=== PATIENT | female | born 1930 | race Caucasian/White ===

== ENCOUNTER 2016-03-21 17:39 | Inpatient (IN) | payer OTHER ==
[2016-03-21 19:04] VITALS: BMI 20.5
--- NOTE | 2016-03-21 19:11 | PDOC ---
History of Present Illness - General History Source: Patient Exam Limitations: Dementia - History of Present Illness Initial Comments: 03/21/16 22:18 The patient is an 86-year-old female with a significant past medical history of CVA, COPD, CHF, Dementia (Alzheimers), diabetes, GERD, renal failure, hypertension and hypercholesterolemia who presents to the emergency department with hypernatremia and abnormal blood work sent in by [facility]. The patients history is limited due to patients baseline. Allergies: NKDA Social History: Former smoker (quit >9 years ago). No ETOH or recreational drug use. PCP: Dr. Carrie Mccarthy <Emy Kilpatrick - Last Filed: 03/21/16 22:17> <Ivette Meadows - Last Filed: 03/22/16 01:03> - General Chief Complaint: Revisit, Lab Variance Stated Complaint: HYPERNATREMIA Past History <Emy Kilpatrick - Last Filed: 03/21/16 22:17> - Past Medical History CVA: Yes (TIA) COPD: Yes CHF: Yes Dementia: Yes (alzheimers) Diabetes: Yes GI Disorders: Yes (gerd) Disorders: Yes (renal failure) HTN: Yes Hypercholesterolemia: Yes - Surgical History Orthopedic Surgery: Yes - Immunization History Immunization Up to Date: Yes - Psycho/Social/Smoking Cessation Hx Anxiety: No Suicidal Ideation: No Smoking History: Former smoker Have you smoked in the past 12 months: No If you are a former smoker, when did you quit?: >9 YEARS Information on smoking cessation initiated: No Hx Alcohol Use: No Drug/Substance Use Hx: No Substance Use Type: None Hx Substance Use Treatment: No <Ivette Meadows - Last Filed: 03/22/16 01:03> - Past Medical History Allergies/Adverse Reactions: Allergies Allergy/AdvReac Type Severity Reaction Status Date / Time No Known Allergies Allergy Verified 03/21/16 18:24 Home Medications: Ambulatory Orders Albuterol Sulfate Inhaler - [Ventolin HFA Inhaler -] 1 inh PO Q6H 11/16/15 Clopidogrel Bisulfate [Plavix -] 75 mg PO DAILY 11/16/15 Memantine HCl [Namenda -] 10 mg PO BID 11/16/15 Multivitamins [Multivit ([facility] Formul[facility])] 1 tab PO DAILY 11/16/15 Rosuvastatin Calcium [Crestor] 20 mg PO HS 11/16/15 Docusate Sodium [Colace -] 200 mg PO HS 12/18/15 Oxycodone HCl [Roxicodone -] 5 mg PO ASDIR 12/18/15 Ranitidine [Zantac -] 150 mg PO HS 12/18/15 Collagenase Clostridium Hist. [Santyl -] 1 applic TP DAILY tube 12/25/15 Pantoprazole Sodium [Protonix -] 40 mg PO DAILY tablet.ec 12/25/15 Aa/[place] Iraj,[place]/Arg/C/Zn/Cu [Lps Critical Care Liquid] 30 ml PO TID 03/05/16 Ascorbate Calcium [Vitamin C] 500 mg PO DAILY 03/05/16 Ascorbate Calcium/Bioflavonoid [Ashley-C 1,000 mg Tablet] 1 each PO DAILY Donepezil HCl [Aricept -] 10 mg PO DAILY 03/05/16 Acetaminophen [Tylenol .Regular Strength -] 650 mg PO Q4H PRN #0 tablet Review of Systems - Review of Systems Able to Perform ROS?: No Comments:: 03/21/16 22:09 Unable to perform ROS due to the patient's altered mental status. <Emy Kilpatrick - Last Filed: 03/21/16 22:17> *Physical Exam - Vital Signs Last Vital Signs Temp Pulse Resp BP Pulse Ox 98.4 F 77 16 135/59 98 03/21/16 18:00 03/21/16 18:00 03/21/16 18:00 03/21/16 18:00 03/21/16 18:00 <Emy Kilpatrick - Last Filed: 03/21/16 22:17> - Vital Signs Last Vital Signs Temp Pulse Resp BP Pulse Ox 98.4 F 77 16 135/59 98 03/21/16 18:00 03/21/16 18:00 03/21/16 18:00 03/21/16 18:00 03/21/16 18:00 <Ivette Meadows - Last Filed: 03/22/16 01:03> ED Treatment Course - LABORATORY CBC & Chemistry Diagram: 03/21/16 20:40 03/21/16 21:00 - ADDITIONAL ORDERS Additional order review: Laboratory Results 03/21/16 03/21/16 21:00 21:00 Sodium 165 H* D Potassium 3.1 L D Chloride 127 H Carbon Dioxide 27 Anion Gap 11 BUN 46 H D Creatinine 1.5 H D Creat Clearance w eGFR 32.92 Random Glucose 88 Calcium 8.8 Total Bilirubin 0.4 D AST 22 D ALT 12 D Alkaline Phosphatase 56 B-Natriuretic Peptide 09228.95 H Total Protein 5.0 L Albumin 1.8 L 03/21/16 20:40 RBC 3.07 L MCV 93.2 MCHC 31.8 L RDW 15.5 MPV 9.1 Neutrophils % 71.0 Lymphocytes % 15.5 D Monocytes % 11.9 H D Eosinophils % 0.7 Basophils % 0.9 D - Medications Given in the ED: ED Medications Discontinued Medications Generic Name Dose Route Start Last Admin Trade Name Freq PRN Reason Stop Dose Admin Sodium Chloride 1,000 ml 03/21/16 19:33 03/21/16 20:45 Normal Saline - IV 03/21/16 19:34 1,000 ml ONCE ONE Administration <Emy Kilpatrick - Last Filed: 03/21/16 22:17> - LABORATORY CBC & Chemistry Diagram: 03/21/16 20:40 03/21/16 21:00 <Ivette Meadows - Last Filed: 03/22/16 01:03> Medical Decision Making - Medical Decision Making 03/22/16 01:01 Pt is DNR from the [facility]; she has known CHF, as well as known dehydration and hypernatremia. Today she was sent or hyper Na+. In the ER her Na+ is 160s. She was hydrated gently in the ER and she will be admitted to Dr. Lott. Pt's abdominal exam is normal. She has no fever and no flank pain or abdominal pain and her lungs are clear. Pt is demented and she cannot give a history <Ivette Meadows - Last Filed: 03/22/16 01:03> *DC/Admit/Observation/Transfer - Attestations Scribe Attestion: 03/21/16 22:09 Documentation prepared by Emy Kilpatrick, acting as medical record consultant for Ivette Meadows MD. <Emy Kilpatrick - Last Filed: 03/21/16 22:17> - Discharge Dispostion Admit: Yes <Ivette Meadows - Last Filed: 03/22/16 01:03> Diagnosis at time of Disposition: Hypernatremia, Hypokalemia, Dehydration, Dementia - Discharge Dispostion Condition at time of disposition: Poor - Referrals Addendum entered and electronically signed by Emy Kilpatrick SCRIBE 03/22/16 04:33: Physical Exam Vital Signs: Vital Signs Temperature 98.4 F 03/22/16 03:01 Pulse Rate 77 03/22/16 03:01 Respiratory Rate 16 03/22/16 03:01 Blood Pressure 135/59 03/22/16 03:01 O2 Sat by Pulse Oximetry (%) 98 03/22/16 03:01 GENERAL: The patient is in no acute distress. HEAD: Normal with no signs of trauma. EYES: Pupils equal, round and reactive to light, extraocular movements intact, sclera anicteric, conjunctiva clear with no pallor. ENT: Ears normal, nares patent, oropharynx clear without exudates. Moist mucous membranes. NECK: Normal range of motion, supple without lymphadenopathy, JVD, or masses. LUNGS: Breath sounds equal, clear to auscultation bilaterally. No wheeze/ crackles. HEART: Regular rate and rhythm, normal S1 and S2 without murmur or rub. ABDOMEN: Soft/nontender/nondistended. BS wnl. No guarding or rebound. No palpable masses. No hepatosplenomegaly. EXTREMITIES: Normal range of motion, no edema. No clubbing or cyanosis. No cords, erythema, or tenderness. NEUROLOGICAL: Cranial nerves II through XII grossly intact. Normal speech, normal gait. PSYCH: +Dementia. Normal mood, normal affect. SKIN: Warm, Dry, normal turgor, no rashes or lesions noted. Constitutional: Yes: Well Nourished, No Distress, Calm Eyes: Yes: WNL, Conjunctiva Clear, EOM Intact HENT: Yes: WNL, Atraumatic, Normocephalic Neck: Yes: WNL, Supple, Trachea Midline Cardiovascular: Yes: WNL, Regular Rate and Rhythm Respiratory: Yes: WNL, Regular, CTA Bilaterally Gastrointestinal: Yes: WNL, Normal Bowel Sounds ...Rectal Exam: Yes: WNL Renal/: Yes: WNL Breast(s): Yes: WNL Musculoskeletal: Yes: WNL Extremities: Yes: WNL Integumentary: Yes: WNL Neurological: Yes: WNL, Alert, Oriented ...Motor Strength: WNL Psychiatric: Yes: WNL Labs: CBC, BMP 03/21/16 20:40 03/21/16 21:00
[2016-03-21] MEDS ORDERED: SODIUM CHLORIDE 0.9% 500 ML INFUS.BAG IV ONE (19:33)
[2016-03-21 20:55] LABS: BASOPHIL 0.9 % (0-2.0); EOSINOPHIL 0.7 % (0-4.5); MCH 29.7 pg (25.7-33.7); MCHC 31.8 g/dl (32.0-36.0); MEAN CELL VOLUME 93.2 fl (80-96); MEAN PLT VOLUME 9.1 fl (7.5-11.1); PLATELET COUNT 261 K/MM3 (134-434); RDW 15.5 % (11.6-15.6); WHITE BLOOD COUNT 5.7 K/mm3 (4.0-10.0)
[2016-03-21 21:51] LABS: ALBUMIN 1.8 g/dl (3.4-5.0); BILIRUBIN,TOTAL 0.4 mg/dL (0.2-1.0); CALCIUM 8.8 mg/dL (8.5-10.1); CREATININE 1.5 mg/dL (0.55-1.02)
[2016-03-21] MEDS ORDERED: MAGNESIUM SULF 50% (8.12 MEQ/2 ML-1 GM VIAL) IVPB ONE (21:57)
[2016-03-21] MEDS ORDERED: ACETAMINOPHEN 325 MG TABLET (FP) PO PRN (22:32)
[2016-03-21] MEDS ORDERED: MAGNESIUM SULF 50% (8.12 MEQ/2 ML-1 GM VIAL) ONE (22:56)
[2016-03-21] MEDS ORDERED: KCL 10 MEQ IVPB 100 ML IVPB ONE (22:57)
[2016-03-21] MEDS: KCL 10 MEQ IVPB 100 ML IVPB SCH (23:05)
[2016-03-22] MEDS ORDERED: KCL 10 MEQ IVPB 100 ML IVPB ONE (00:10)
[2016-03-22] MEDS: KCL 10 MEQ IVPB 100 ML IVPB SCH (04:05)
--- NOTE | 2016-03-22 10:13 | HP ---
Admitting History and Physical - Primary Care Physician PCP: Carrie Mccarthy - Admission Chief Complaint: Hypernatremia, Hypokalemia, Dehydration, Dementia. 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 Cardiovascular: Yes: CHF (Chronic systolic CHF), HTN, Hyperlipdemia, Other ( LBBB (old)) Pulmonary: Yes: COPD Gastrointestinal: Yes: GERD Renal/: Yes: Renal Inusuff Dermatology: Yes: Other (PU) - Smoking History Smoking history: Former smoker Have you smoked in the past 12 months: No If you are a former smoker, when did you quit?: >9 YEARS - Alcohol/Substance Use Hx Alcohol Use: No Home Medications - Allergies Allergies/Adverse Reactions: Allergies Allergy/AdvReac Type Severity Reaction Status Date / Time No Known Allergies Allergy Verified 03/21/16 18:24 - Home Medications Home Medications: Ambulatory Orders Albuterol Sulfate Inhaler - [Ventolin HFA Inhaler -] 1 inh PO Q6H 11/16/15 Clopidogrel Bisulfate [Plavix -] 75 mg PO DAILY 11/16/15 Memantine HCl [Namenda -] 10 mg PO BID 11/16/15 Multivitamins [Multivit ([facility] Formul[facility])] 1 tab PO DAILY 11/16/15 Rosuvastatin Calcium [Crestor] 20 mg PO HS 11/16/15 Docusate Sodium [Colace -] 200 mg PO HS 12/18/15 Oxycodone HCl [Roxicodone -] 5 mg PO ASDIR 12/18/15 Ranitidine [Zantac -] 150 mg PO HS 12/18/15 Collagenase Clostridium Hist. [Santyl -] 1 applic TP DAILY tube 12/25/15 Pantoprazole Sodium [Protonix -] 40 mg PO DAILY tablet.ec 12/25/15 Aa/[place] Iraj,[place]/Arg/C/Zn/Cu [Lps Critical Care Liquid] 30 ml PO TID 03/05/16 Ascorbate Calcium [Vitamin C] 500 mg PO DAILY 03/05/16 Ascorbate Calcium/Bioflavonoid [Ashley-C 1,000 mg Tablet] 1 each PO DAILY Donepezil HCl [Aricept -] 10 mg PO DAILY 03/05/16 Acetaminophen [Tylenol .Regular Strength -] 650 mg PO Q4H PRN #0 tablet Review of Systems Findings/Remarks: UNABLE TO GIVE HISTORY Physical Examination Vital Signs: Vital Signs Temperature 98.4 F 03/22/16 03:01 Pulse Rate 77 03/22/16 03:01 Respiratory Rate 16 03/22/16 03:01 Blood Pressure 135/59 03/22/16 03:01 O2 Sat by Pulse Oximetry (%) 98 03/22/16 03:01 Findings/Remarks: LETHARGIC SON AT BEDSIDE Constitutional: Yes: Calm Cardiovascular: Yes: Regular Rate and Rhythm, S1, S2 Respiratory: Yes: CTA Bilaterally Gastrointestinal: Yes: Normal Bowel Sounds, Soft Edema: No Imaging - Results Chest X-ray: Report Reviewed Problem List - Problems (1) Dehydration Code(s): E86.0 - DEHYDRATION (2) Dementia Code(s): F03.90 - UNSPECIFIED DEMENTIA WITHOUT BEHAVIORAL DISTURBANCE (3) Hypernatremia Code(s): E87.0 - HYPEROSMOLALITY AND HYPERNATREMIA (4) Hypokalemia Code(s): E87.6 - HYPOKALEMIA (5) Renal failure (ARF), acute on chronic Code(s): N17.9 - ACUTE KIDNEY FAILURE, UNSPECIFIED N18.9 - CHRONIC KIDNEY DISEASE, UNSPECIFIED (6) COPD (chronic obstructive pulmonary disease) Code(s): J44.9 - CHRONIC OBSTRUCTIVE PULMONARY DISEASE, UNSPECIFIED (7) CHF (congestive heart failure) Code(s): I50.9 - HEART FAILURE, UNSPECIFIED (8) HTN (hypertension) Code(s): I10 - ESSENTIAL (PRIMARY) HYPERTENSION Assessment/Plan The patient is an 86-year-old female with a significant past medical history of CVA, COPD, CHF, Dementia (Alzheimers), diabetes, GERD, renal failure, hypertension and hypercholesterolemia who presents to the emergency department with hypernatremia and abnormal blood work sent in by [facility]. The patients history is limited due to patients baseline. Allergies: NKDA Social History: Former smoker (quit >9 years ago). No ETOH or recreational drug use. PCP: Dr. Carrie Mccarthy Hypernatremia, Hypokalemia, Dehydration, Dementia (1) Dehydration Code(s): E86.0 - DEHYDRATION RENAL CONSULTED POSSIBLE AE CHF F/U LABS (2) Dementia Code(s): F03.90 - UNSPECIFIED DEMENTIA WITHOUT BEHAVIORAL DISTURBANCE (3) Hypernatremia Code(s): E87.0 - HYPEROSMOLALITY AND HYPERNATREMIA (4) Hypokalemia Code(s): E87.6 - HYPOKALEMIA SEE #1 (5) Renal failure (ARF), acute on chronic Code(s): N17.9 - ACUTE KIDNEY FAILURE, UNSPECIFIED N18.9 - CHRONIC KIDNEY DISEASE, UNSPECIFIED SEE #1 (6) COPD (chronic obstructive pulmonary disease) Code(s): J44.9 - CHRONIC OBSTRUCTIVE PULMONARY DISEASE, UNSPECIFIED CXr -> INFILTRATE WBC NEG NO FEVER ID & PULM CONSULTED (7) CHF (congestive heart failure) Code(s): I50.9 - HEART FAILURE, UNSPECIFIED BNP INCed CARDIO CONSULTED F/U LABS (8) HTN (hypertension) Code(s): I10 - ESSENTIAL (PRIMARY) HYPERTENSION [employer]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
[2016-03-22] MEDS ORDERED: ALBUTEROL SO4 0.083% IH SOL 2.5 MG/3 ML VIAL.NEB. NEB PRN (10:19)
--- NOTE | 2016-03-22 10:31 | EKG ---
Test Reason : Blood Pressure : / mmHG Vent. Rate : 095 BPM Atrial Rate : 197 BPM P-R Int : 000 ms QRS Dur : 180 ms QT Int : 482 ms P-R-T Axes : 000 -44 -27 degrees QTc Int : 605 ms POOR DATA QUALITY, INTERPRETATION MAY BE ADVERSELY AFFECTED SINUS RHYTHM LEFT BUNDLE BRANCH BLOCK ABNORMAL ECG Confirmed by PAUL PALACIO MD ([id number]) on 03/22/2016 10:31:37 AM Referred By: Confirmed By:PAUL PALACIO MD
--- NOTE | 2016-03-22 11:03 | CONSULT ---
Consult Consult Specialty:: Cardiology Referred by:: Dr. Lott Reason for Consultation:: Elevated BNP - History of Present Illness History of Present Illness: 86 yo female with DM, dementia, COPD, CVA (noted on 11/16/[address]), CKD, GERD, chronic systolic CHF, LBBB (old), and multiple hospitalizations for dehydration. She was admitted again with acute mild renal failure (BUN 46, Cr 1.5)/dehydration/hypernatremia (Na 165)/hypokalemia. Cardiology was consulted for cardiac evaluation for elevated BNP 14,941. CXR reported RUL infiltrate, cardiomegaly, no effusions. ECG on 03/22/16 demonstrated sinus rhythm with LBBB ( old). 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 Cardio/Vascular: Yes: CHF (Chronic systolic CHF), HTN, Hyperlipdemia, Other ( LBBB (old)) Pulmonary: Yes: COPD Gastrointestinal: Yes: GERD Renal/: Yes: Renal Inusuff Dermatology: Yes: Other (PU) - Alcohol/Substance Use Hx Alcohol Use: No - Smoking History Smoking history: Former smoker Have you smoked in the past 12 months: No If you are a former smoker, when did you quit?: >9 YEARS Home Medications - Allergies Allergies/Adverse Reactions: Allergies Allergy/AdvReac Type Severity Reaction Status Date / Time No Known Allergies Allergy Verified 03/21/16 18:24 - Home Medications Home Medications: Ambulatory Orders Albuterol Sulfate Inhaler - [Ventolin HFA Inhaler -] 1 inh PO Q6H 11/16/15 Clopidogrel Bisulfate [Plavix -] 75 mg PO DAILY 11/16/15 Memantine HCl [Namenda -] 10 mg PO BID 11/16/15 Multivitamins [Multivit ([facility] Formul[facility])] 1 tab PO DAILY 11/16/15 Rosuvastatin Calcium [Crestor] 20 mg PO HS 11/16/15 Docusate Sodium [Colace -] 200 mg PO HS 12/18/15 Oxycodone HCl [Roxicodone -] 5 mg PO ASDIR 12/18/15 Ranitidine [Zantac -] 150 mg PO HS 12/18/15 Collagenase Clostridium Hist. [Santyl -] 1 applic TP DAILY tube 12/25/15 Pantoprazole Sodium [Protonix -] 40 mg PO DAILY tablet.ec 12/25/15 Aa/[place] Iraj,[place]hey/Arg/C/Zn/Cu [Lps Critical Care Liquid] 30 ml PO TID 03/05/16 Ascorbate Calcium [Vitamin C] 500 mg PO DAILY 03/05/16 Ascorbate Calcium/Bioflavonoid [Ashley-C 1,000 mg Tablet] 1 each PO DAILY Donepezil HCl [Aricept -] 10 mg PO DAILY 03/05/16 Acetaminophen [Tylenol .Regular Strength -] 650 mg PO Q4H PRN #0 tablet Family Disease History - Family Disease History Family History: Unable to Obtain (due to dementia) Review of Systems Unable to obtain ROS, reason: dementia Vital Signs: Vital Signs Temperature 98.4 F 03/22/16 03:01 Pulse Rate 77 03/22/16 03:01 Respiratory Rate 16 03/22/16 03:01 Blood Pressure 135/59 03/22/16 03:01 O2 Sat by Pulse Oximetry (%) 98 03/22/16 03:01 Eyes: Yes: Conjunctiva Clear, EOM Intact HENT: Yes: Atraumatic, Normocephalic Respiratory: Yes: CTA Bilaterally Gastrointestinal: Yes: Normal Bowel Sounds, Soft. No: Distention, Tenderness Cardiovascular: Yes: Regular Rate and Rhythm JVD: No Carotid Bruit: No PMI: Non-Displaced Heart Sounds: Yes: S1, S2 Murmur: No: Systolic Murmur Edema: No - Other Data 03/22/16 ECG: Sinus rhythm, rate 72 bpm, LBBB (old) Echo: Report Reviewed (12/19/15 Echo: Dilated LV with moderate to severely reduced systolic function, mod MR, mild TR, and normal RVSP.) Imaging - Results Chest X-ray: Report Reviewed (03/22/16: RUL infiltrate, cardiomegaly, no effusions.) Assessment/Plan 86 yo female with DM, dementia, COPD, CVA (noted on 11/16/[address]), CKD, GERD, chronic systolic CHF, and multiple hospitalizations for dehydration. Patient with elevated BNP, but does not appear to be in decompensated CHF. Would not treat patient for heart failure based solely on elevated BNP, as her clinical picture is not suggestive of decompensated CHF. Rather she appears to be clinically dehydrated again based on hypernatremia. Given patient's dementia, advanced age, and overall clinical status, there is no indication or utility for any further cardiac work-up or intervention. Patient is clinically dehydrated. No need for diuretics at this time and would not resume meds for management of her LV systolic dysfunction (beta-courtney, DEMARCUS -inhibitors, or diuretics) given her overall poor prognosis and limited benefit in this patient's case given her repeated admissions for dehydration & renal failure. Further recs as per primary team, pulmonary, and nephrology. Will see prn. Call with questions.
--- NOTE | 2016-03-22 12:14 | PN ---
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
[2016-03-22] MEDS: MULTIVITAMINS (DAILY MVI) TABLET (FP) PO SCH (12:42)
[2016-03-22] MEDS: MEMANTINE HCL 10 MG TABLET (FP) PO SCH ×2 (12:42→23:22)
[2016-03-22] MEDS: DONEPEZIL HCL 10 MG TABLET (FP) PO SCH (12:42)
[2016-03-22] MEDS: ASCORBIC ACID 500 MG TABLET (FP) PO SCH (12:42)
[2016-03-22] MEDS: HEPARIN NA (PORCINE) 5,000 UNITS/ML 1ML VIAL SQ SCH ×2 (12:43→23:23)
[2016-03-22] MEDS: PANTOPRAZOLE 40 MG TABLET (FP) PO SCH (12:43)
[2016-03-22] MEDS: CLOPIDOGREL BISULFATE 75 MG TABLET (FP) PO SCH (12:43)
--- NOTE | 2016-03-22 13:08 | CONSULT ---
Consult Consult Specialty:: PULMONARY Referred by:: Dr. Lott Reason for Consultation:: abnormal CXR - History of Present Illness Chief Complaint: abnormal labs History of Present Illness: 86yo female with h/o DM, COPD, CKD, h/o CVA, LV systolic dysfunction, advanced dementia who was transferred from the shelter for hypernatremia. Pt is nonverbal, unable to provide further history at this time. Prior admissions significant for dehydration, family declining feeding tube although pt with poor PO intake. Pt without fevers or leukocytosis, CXR read as possible bilateral infiltrates although different technique. 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 Cardio/Vascular: Yes: CHF (Chronic systolic CHF), HTN, Hyperlipdemia, Other ( LBBB (old)) Pulmonary: Yes: COPD Gastrointestinal: Yes: GERD Renal/: Yes: Renal Inusuff Dermatology: Yes: Other (PU) - Alcohol/Substance Use Hx Alcohol Use: No - Smoking History Smoking history: Former smoker Have you smoked in the past 12 months: No If you are a former smoker, when did you quit?: >9 YEARS Home Medications - Allergies Allergies/Adverse Reactions: Allergies Allergy/AdvReac Type Severity Reaction Status Date / Time No Known Allergies Allergy Verified 03/21/16 18:24 - Home Medications Home Medications: Ambulatory Orders Albuterol Sulfate Inhaler - [Ventolin HFA Inhaler -] 1 inh PO Q6H 11/16/15 Clopidogrel Bisulfate [Plavix -] 75 mg PO DAILY 11/16/15 Memantine HCl [Namenda -] 10 mg PO BID 11/16/15 Multivitamins [Multivit ([facility] Formul[facility])] 1 tab PO DAILY 11/16/15 Rosuvastatin Calcium [Crestor] 20 mg PO HS 11/16/15 Docusate Sodium [Colace -] 200 mg PO HS 12/18/15 Oxycodone HCl [Roxicodone -] 5 mg PO ASDIR 12/18/15 Ranitidine [Zantac -] 150 mg PO HS 12/18/15 Collagenase Clostridium Hist. [Santyl -] 1 applic TP DAILY tube 12/25/15 Pantoprazole Sodium [Protonix -] 40 mg PO DAILY tablet.ec 12/25/15 Aa/[place] Iraj,[place]hey/Arg/C/Zn/Cu [Lps Critical Care Liquid] 30 ml PO TID 03/05/16 Ascorbate Calcium [Vitamin C] 500 mg PO DAILY 03/05/16 Ascorbate Calcium/Bioflavonoid [Ashley-C 1,000 mg Tablet] 1 each PO DAILY Donepezil HCl [Aricept -] 10 mg PO DAILY 03/05/16 Acetaminophen [Tylenol .Regular Strength -] 650 mg PO Q4H PRN #0 tablet Review of Systems Unable to obtain ROS, reason: pt demented Physical Exam Vital Sings: Vital Signs Temperature 98.4 F 03/22/16 03:01 Pulse Rate 77 03/22/16 03:01 Respiratory Rate 16 03/22/16 03:01 Blood Pressure 135/59 03/22/16 03:01 O2 Sat by Pulse Oximetry (%) 98 03/22/16 03:01 Constitutional: Yes: Calm Eyes: Yes: Conjunctiva Clear, EOM Intact HENT: Yes: Atraumatic, Normocephalic Neck: Yes: Supple, Trachea Midline Cardiovascular: Yes: Regular Rate and Rhythm Respiratory: Yes: Diminished (poor effort) ...Clubbing: No Gastrointestinal: Yes: Normal Bowel Sounds, Soft Edema: No Imaging - Results Chest X-ray: Report Reviewed, Image Reviewed (rotated, LLL infiltrate vs atelectasis) Problem List - Problems (1) Dementia Code(s): F03.90 - UNSPECIFIED DEMENTIA WITHOUT BEHAVIORAL DISTURBANCE (2) Hypernatremia Code(s): E87.0 - HYPEROSMOLALITY AND HYPERNATREMIA (3) COPD (chronic obstructive pulmonary disease) Code(s): J44.9 - CHRONIC OBSTRUCTIVE PULMONARY DISEASE, UNSPECIFIED (4) Failure to thrive Code(s): [id number] - Qualifiers: Failure to thrive age range: in adult Qualified Code(s): R62.7 - Adult failure to thrive (5) 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
[2016-03-22] MEDS: COLLAGENASE CLOSTRIDIUM HIST. 30 GRAMS TUBE TP SCH (14:31)
--- NOTE | 2016-03-22 14:31 | CONSULT ---
Consult Consult Specialty:: Nephrology ( Drs. Carolina/ Lennox) Referred by:: Dr. Lott - History of Present Illness Chief Complaint: 86 y/o female admitted with Hypernatremia. Has H/o DM 2, COPD , PVD, LE ulcers, Dementia. was recently in [facility] with sepsis. 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) - Alcohol/Substance Use Hx Alcohol Use: No - Smoking History Smoking history: Former smoker Have you smoked in the past 12 months: No If you are a former smoker, when did you quit?: >9 YEARS Home Medications - Allergies Allergies/Adverse Reactions: Allergies Allergy/AdvReac Type Severity Reaction Status Date / Time No Known Allergies Allergy Verified 03/21/16 18:24 - Home Medications Home Medications: Ambulatory Orders Albuterol Sulfate Inhaler - [Ventolin HFA Inhaler -] 1 inh PO Q6H 11/16/15 Clopidogrel Bisulfate [Plavix -] 75 mg PO DAILY 11/16/15 Memantine HCl [Namenda -] 10 mg PO BID 11/16/15 Multivitamins [Multivit ([facility] Formul[facility])] 1 tab PO DAILY 11/16/15 Rosuvastatin Calcium [Crestor] 20 mg PO HS 11/16/15 Docusate Sodium [Colace -] 200 mg PO HS 12/18/15 Oxycodone HCl [Roxicodone -] 5 mg PO ASDIR 12/18/15 Ranitidine [Zantac -] 150 mg PO HS 12/18/15 Collagenase Clostridium Hist. [Santyl -] 1 applic TP DAILY tube 12/25/15 Pantoprazole Sodium [Protonix -] 40 mg PO DAILY tablet.ec 12/25/15 Aa/Purmela Iraj,Whey/Arg/C/Zn/Cu [Lps Critical Care Liquid] 30 ml PO TID 03/05/16 Ascorbate Calcium [Vitamin C] 500 mg PO DAILY 03/05/16 Ascorbate Calcium/Bioflavonoid [Ashley-C 1,000 mg Tablet] 1 each PO DAILY Donepezil HCl [Aricept -] 10 mg PO DAILY 03/05/16 Acetaminophen [Tylenol .Regular Strength -] 650 mg PO Q4H PRN #0 tablet Physical Exam Vital Signs: Vital Signs Temperature 98.4 F 03/22/16 03:01 Pulse Rate 77 03/22/16 03:01 Respiratory Rate 16 03/22/16 03:01 Blood Pressure 135/59 03/22/16 03:01 O2 Sat by Pulse Oximetry (%) 98 03/22/16 03:01 Constitutional: Yes: Mild Distress, Thin Cardiovascular: Yes: Regular Rate and Rhythm, S1, S2 Respiratory: Yes: Poor Air Entry, Rhonchi Gastrointestinal: Yes: Normal Bowel Sounds Edema: No Integumentary: Yes: Pressure Ulcer (Laft heel and an ulcer on the dorsum of the left foot.) Neurological: Yes: Unresponsive Problem List - Problems (1) COPD (chronic obstructive pulmonary disease) Code(s): J44.9 - CHRONIC OBSTRUCTIVE PULMONARY DISEASE, UNSPECIFIED (2) Dementia Code(s): F03.90 - UNSPECIFIED DEMENTIA WITHOUT BEHAVIORAL DISTURBANCE (3) HTN (hypertension) Code(s): I10 - ESSENTIAL (PRIMARY) HYPERTENSION (4) Anemia Code(s): D64.9 - ANEMIA, UNSPECIFIED Qualifiers: Iron deficiency anemia type: chronic blood loss (5) Hypernatremia Code(s): E87.0 - HYPEROSMOLALITY AND HYPERNATREMIA (6) Foot ulcer Code(s): L97.509 - NON-PRESSURE CHRONIC ULCER OTH PRT UNSP FOOT W UNSP SEVERITY Assessment/Plan 86 y/o female with Acute hypernatremia, possibly due to free water depletion and Dehydration. Underlying infectious process and poor oral intake might be triggering factors. Plan: IV Hydration Will monitor Renal functions. Thanks again Jennifer Carolina
[2016-03-22 14:33] LABS: BASOPHIL 0.3 % (0-2.0); EOSINOPHIL 0.9 % (0-4.5); MCH 30.3 pg (25.7-33.7); MCHC 31.8 g/dl (32.0-36.0); MEAN CELL VOLUME 95.1 fl (80-96); NEUTROPHILS 75.4 % (42.8-82.8); PLATELET COUNT 220 K/MM3 (134-434); WHITE BLOOD COUNT 6.6 K/mm3 (4.0-10.0)
[2016-03-22] MEDS ORDERED: SODIUM CHLORIDE 0.45%/POT 1,000 ML IV SCH (14:45)
--- NOTE | 2016-03-22 14:46 | CONS ---
DATE OF CONSULTATION: DATE OF DICTATION: 03/22/2016 CONSULTATION REQUESTED BY: Alf Lott MD HISTORY: This is an 86-year-old woman who was recently hospitalized at the end of February with aspiration pneumonia, renal failure, who is now admitted with hypernatremia from the snf. I am asked to see her for possible pneumonia. She is nonverbal, not giving any history, and resting quite comfortably. Her son is at the bedside and reports mom has very poor appetite at the snf. He also reports that she has a heel ulcer on her left foot and a new ulcer on the dorsal surface of her left foot. PAST MEDICAL HISTORY: She has a past medical history of dementia, TIA, atrial fibrillation, CHF, hypertension, hyperlipidemia, COPD, GERD, and renal insufficiency. She has been living at the snf since August because she stopped ambulating at home, and she really eats poorly there. She was recently admitted in February from the until the . She was admitted then with hypernatremia, renal failure, and aspiration pneumonia. ALLERGIES: She has no known drug allergies. MEDICATIONS: Her medications at the snf include Roxicodone, collagenase, vitamin C, Protonix, protein supplement, multivitamin, vitamin C, Ventolin, Crestor, Zantac, Colace, Namenda, Aricept, and Plavix. FAMILY HISTORY: Noncontributory. SOCIAL HISTORY: She has a very involved son who she used to live with before she was hospitalized. REVIEW OF SYSTEMS: As per HPI. Son does not recall any vomiting. She just has very poor appetite. PHYSICAL EXAMINATION: Vital Signs: Her temperature is 98.4. Pulse is 77. Blood pressure 135/59, respiratory rate 16. She weighs 112 pounds. She was 114 the last time she was here. HEENT: She is normocephalic. Her eyes are anicteric. She does not have her dentures, which are lost. She is nonverbal. Lungs: Clear to auscultation. Heart: Regular rate and rhythm. Abdomen: Soft, nontender. Extremities: Notable for a necrotic heel ulcer, and she has an exposed tendon on the dorsal part of the foot as well. LABORATORY: Notable for a white count of 5.7, hemoglobin 9.1, platelets of 261. BUN and creatinine are 46 and 1.5 with a sodium of 165. Chest x-ray has some increased markings which I suspect are unchanged from her prior x-ray in February. SUMMARY: This is an 86-year-old woman who was doing very poorly, diminished oral appetite, who is admitted with dehydration for the second time in a month. We were asked to see her for abnormal chest x-ray. I do not think she has active pneumonia at this time. Would treat her dehydration. As well, Surgery should reevaluate her necrotic ulcers. Overall, she is really failing and doing poorly, and given her advanced age and dementia which she has had for 8 years, her overall prognosis is quite poor. Her white count is normal. She has no fevers. Would observe her off antibiotics at this time. DEBRA HADDAD M.D. [id number]
[2016-03-22 15:04] LABS: ALBUMIN 1.8 g/dl (3.4-5.0); CALCIUM 8.8 mg/dL (8.5-10.1); CREATININE 1.5 mg/dL (0.55-1.02)
[2016-03-22 15:19] LABS: BILIRUBIN,TOTAL 0.4 mg/dL (0.2-1.0)
[2016-03-22 15:30] LABS: TROPONIN I 0.98 ng/ml (0.00-0.05)
[2016-03-22] MEDS: DOCUSATE SODIUM 100 MG CAPSULE (FP) PO SCH (23:22)
[2016-03-22] MEDS: ROSUVASTATIN CA 10 MG TABLET (FP) PO SCH (23:22)
[2016-03-23 09:00] LABS: BASOPHIL 0.5 % (0-2.0); EOSINOPHIL 0.9 % (0-4.5); MCH 30.7 pg (25.7-33.7); MCHC 32.3 g/dl (32.0-36.0); MEAN CELL VOLUME 94.8 fl (80-96); PLATELET COUNT 239 K/MM3 (134-434); RDW 16.2 % (11.6-15.6); WHITE BLOOD COUNT 6.4 K/mm3 (4.0-10.0)
[2016-03-23 09:29] LABS: ALBUMIN 1.9 g/dl (3.4-5.0); CALCIUM 8.9 mg/dL (8.5-10.1); CREATININE 1.7 mg/dL (0.55-1.02)
[2016-03-23 09:30] LABS: BILIRUBIN,TOTAL 0.5 mg/dL (0.2-1.0); TOT PROT 5.3 g/dl (6.4-8.2)
--- NOTE | 2016-03-23 10:12 | PN ---
Progress Note, Physician History of Present Illness: Patient with elevated trop of 0.98 in setting of renal failure. No events overnight. Patient appears to be sleeping comfortably. - Current Medication List Current Medications: Active Medications Acetaminophen (Tylenol -) 650 mg PO Q6H PRN PRN Reason: FEVER OR PAIN Albuterol Sulfate (Ventolin 0.083% Nebulizer Soln -) 1 amp NEB Q4H PRN PRN Reason: SHORT OF BREATH/WHEEZING Last Admin: 03/22/16 22:33 Dose: 1 amp Ascorbic Acid (Vitamin C -) 500 mg PO DAILY [facility] Last Admin: 03/22/16 12:42 Dose: 500 mg Clopidogrel Bisulfate (Plavix -) 75 mg PO DAILY [facility] Last Admin: 03/22/16 12:43 Dose: 75 mg Collagenase (Santyl -) 1 applic TP DAILY [facility] Last Admin: 03/22/16 14:31 Dose: 1 applic Docusate Sodium (Colace -) 200 mg PO HS [facility] Last Admin: 03/22/16 23:22 Dose: Not Given Donepezil HCl (Aricept -) 10 mg PO DAILY [facility] Last Admin: 03/22/16 12:42 Dose: 10 mg Heparin Sodium (Porcine) (Heparin -) 5,000 unit SQ BID [facility] Last Admin: 03/22/16 23:23 Dose: 5,000 unit Potassium Chloride/Sodium Chloride (1/2ns+20meq Kcl) 1,000 mls @ 42 mls/hr IV ASDIR [facility] Last Admin: 03/22/16 15:11 Dose: 42 mls/hr Memantine (Namenda -) 10 mg PO BID [facility] Last Admin: 03/22/16 23:22 Dose: Not Given Multivitamins/Minerals/Vitamin C (Tab-A-Vit -) 1 tab PO DAILY [facility] Last Admin: 03/22/16 12:42 Dose: 1 tab Oxycodone HCl (Roxicodone -) 5 mg PO Q6H PRN PRN Reason: PAIN Pantoprazole Sodium (Protonix -) 40 mg PO DAILY [facility] Last Admin: 03/22/16 12:43 Dose: 40 mg Rosuvastatin Calcium (Crestor -) 10 mg PO HS [facility] Last Admin: 03/22/16 23:22 Dose: Not Given - Objective Vital Signs: Vital Signs Temperature 97.5 F L 03/23/16 07:38 Pulse Rate 73 03/23/16 07:38 Respiratory Rate 18 03/23/16 07:38 Blood Pressure 143/59 03/23/16 07:38 O2 Sat by Pulse Oximetry (%) 98 03/22/16 21:00 Constitutional: Yes: No Distress HENT: Yes: Atraumatic, Normocephalic Cardiovascular: Yes: Regular Rate and Rhythm Respiratory: Yes: CTA Bilaterally Gastrointestinal: Yes: Normal Bowel Sounds, Soft Edema: No Neurological: Yes: Confusion, Unresponsive Labs: CBC, BMP 03/23/16 08:30 Assessment/Plan 86 yo female with DM, dementia, COPD, CVA (noted on 11/16/[address]), CKD, GERD, chronic systolic CHF, and multiple hospitalizations for dehydration. Patient with elevated BNP, but does not appear to be in decompensated CHF. Would not treat patient for heart failure based solely on elevated BNP, as her clinical picture is not suggestive of decompensated CHF. Rather she appears to be clinically dehydrated again based on hypernatremia. No need for diuretics at this time. Patietn with poor overall prognosis and cardiac meds are of limited benefit in this patient's case given her repeated admissions for dehydration & renal failure. Patient with mildly elevated troponin of 0.98 yesterday (03/22) in setting of renal failure with Cr 1.5. Patient does not appear to be in distress. Repeat troponin pending this AM. RECS: Patient's elevated trop may be due to renal, but patient also likely has underlying CAD given her LV systolic dysfunction. Regardless, will treat patient with conservative medical management. Given patient's dementia, advanced age, and overall clinical status, will defer invasive cardiac work-up or intervention (e.g. cardiac catheterization). Will start metoprolol succinate 25 mg po daily given LV systolic dsyfunction and possible CT. Continue Plavix 75 mg po daily. If patient's renal function normalizes and patient is able to take po meds consistently, may consider starting DEMARCUS-inhibitor for better BP control and LV systolic dysfunction. Would also encourage discussion with patient's family regarding patient's code status. Would recommend she be made DNR/DNI given her age and overall poor prognosis. Will follow. Call with questions.
[2016-03-23 10:48] LABS: TROPONIN I 0.83 ng/ml (0.00-0.05)
[2016-03-23] MEDS ORDERED: DEXTROSE 5%-WATER - 1,000 ML IV SCH (11:45)
--- NOTE | 2016-03-23 11:45 | PN ---
Progress Note, Physician Chief Complaint: Patient poorly responsive Admitted with profound dehydration, Hypernatremai and now with markedly elevated Troponin. Incontinent of urine. No oral intake of food or fluid. - Current Medication List Current Medications: Active Medications Acetaminophen (Tylenol -) 650 mg PO Q6H PRN PRN Reason: FEVER OR PAIN Albuterol Sulfate (Ventolin 0.083% Nebulizer Soln -) 1 amp NEB Q4H PRN PRN Reason: SHORT OF BREATH/WHEEZING Last Admin: 03/22/16 22:33 Dose: 1 amp Ascorbic Acid (Vitamin C -) 500 mg PO DAILY [facility] Last Admin: 03/22/16 12:42 Dose: 500 mg Clopidogrel Bisulfate (Plavix -) 75 mg PO DAILY [facility] Last Admin: 03/22/16 12:43 Dose: 75 mg Collagenase (Santyl -) 1 applic TP DAILY [facility] Last Admin: 03/22/16 14:31 Dose: 1 applic Docusate Sodium (Colace -) 200 mg PO HS [facility] Last Admin: 03/22/16 23:22 Dose: Not Given Donepezil HCl (Aricept -) 10 mg PO DAILY [facility] Last Admin: 03/22/16 12:42 Dose: 10 mg Heparin Sodium (Porcine) (Heparin -) 5,000 unit SQ BID [facility] Last Admin: 03/22/16 23:23 Dose: 5,000 unit Dextrose/Sodium Chloride (D5-1/4ns -) 1,000 mls @ 100 mls/hr IV ASDIR [facility] Memantine (Namenda -) 10 mg PO BID [facility] Last Admin: 03/22/16 23:22 Dose: Not Given Metoprolol Succinate (Toprol Xl -) 25 mg PO DAILY [facility] Multivitamins/Minerals/Vitamin C (Tab-A-Vit -) 1 tab PO DAILY [facility] Last Admin: 03/22/16 12:42 Dose: 1 tab Oxycodone HCl (Roxicodone -) 5 mg PO Q6H PRN PRN Reason: PAIN Pantoprazole Sodium (Protonix -) 40 mg PO DAILY [facility] Last Admin: 03/22/16 12:43 Dose: 40 mg Rosuvastatin Calcium (Crestor -) 10 mg PO HS [facility] Last Admin: 03/22/16 23:22 Dose: Not Given - Objective Vital Signs: Vital Signs Temperature 97.5 F L 03/23/16 07:38 Pulse Rate 73 03/23/16 07:38 Respiratory Rate 18 03/23/16 07:38 Blood Pressure 143/59 03/23/16 07:38 O2 Sat by Pulse Oximetry (%) 98 03/22/16 21:00 Constitutional: Yes: Calm Neck: Yes: Decreased ROM Cardiovascular: Yes: Pulse Irregular, S1, S2 Respiratory: Yes: CTA Bilaterally Gastrointestinal: Yes: Normal Bowel Sounds, Soft Labs: CBC, BMP 03/23/16 08:30 03/23/16 08:30 Problem List - Problems (1) COPD (chronic obstructive pulmonary disease) Code(s): J44.9 - CHRONIC OBSTRUCTIVE PULMONARY DISEASE, UNSPECIFIED (2) Dementia Code(s): F03.90 - UNSPECIFIED DEMENTIA WITHOUT BEHAVIORAL DISTURBANCE (3) HTN (hypertension) Code(s): I10 - ESSENTIAL (PRIMARY) HYPERTENSION (4) Anemia Code(s): D64.9 - ANEMIA, UNSPECIFIED Qualifiers: Iron deficiency anemia type: chronic blood loss (5) Hypernatremia Code(s): E87.0 - HYPEROSMOLALITY AND HYPERNATREMIA (6) Foot ulcer Code(s): L97.509 - NON-PRESSURE CHRONIC ULCER OTH PRT UNSP FOOT W UNSP SEVERITY Assessment/Plan 86 y/o female with Acute hypernatremia, due to free water depletion and Dehydration. Underlying infectious process and poor oral intake might be triggering factors. serum K has improved. Oral fluid intake not adequate. IV fluid well tolerated. No evidence of CHF. Plan: IV Hydration with D5 1/4NS at 100 m/ hr. Will monitor Renal functions. Thanks again Jennifer Carolina
[2016-03-23] MEDS: HEPARIN NA (PORCINE) 5,000 UNITS/ML 1ML VIAL SQ SCH ×2 (11:53→23:31)
[2016-03-23] MEDS: oxyCODONE HCL 5 MG TABLET PO PRN (11:53)
[2016-03-23] MEDS: CLOPIDOGREL BISULFATE 75 MG TABLET (FP) PO SCH (11:53)
[2016-03-23] MEDS: COLLAGENASE CLOSTRIDIUM HIST. 30 GRAMS TUBE TP SCH (11:54)
[2016-03-23] MEDS: METOPROLOL SUCCINATE 25 MG TAB.SR.24H (FP) PO SCH (11:54)
[2016-03-23] MEDS: DONEPEZIL HCL 10 MG TABLET (FP) PO SCH (11:54)
[2016-03-23] MEDS: MEMANTINE HCL 10 MG TABLET (FP) PO SCH ×2 (11:54→23:31)
[2016-03-23] MEDS: ASCORBIC ACID 500 MG TABLET (FP) PO SCH (11:55)
[2016-03-23] MEDS: MULTIVITAMINS (DAILY MVI) TABLET (FP) PO SCH (11:55)
[2016-03-23] MEDS: PANTOPRAZOLE 40 MG TABLET (FP) PO SCH (11:55)
--- NOTE | 2016-03-23 12:42 | PN ---
Progress Note, Physician Chief Complaint: HAD D/W SON -> HELPING PATIENT EAT HAD D/W RN -> WOUND CARE ORDERED - Current Medication List Current Medications: Active Medications Acetaminophen (Tylenol -) 650 mg PO Q6H PRN PRN Reason: FEVER OR PAIN Albuterol Sulfate (Ventolin 0.083% Nebulizer Soln -) 1 amp NEB Q4H PRN PRN Reason: SHORT OF BREATH/WHEEZING Last Admin: 03/22/16 22:33 Dose: 1 amp Ascorbic Acid (Vitamin C -) 500 mg PO DAILY [facility] Last Admin: 03/23/16 11:55 Dose: Not Given Clopidogrel Bisulfate (Plavix -) 75 mg PO DAILY [facility] Last Admin: 03/23/16 11:53 Dose: 75 mg Collagenase (Santyl -) 1 applic TP DAILY [facility] Last Admin: 03/23/16 11:54 Dose: 1 applic Docusate Sodium (Colace -) 200 mg PO HS [facility] Last Admin: 03/22/16 23:22 Dose: Not Given Donepezil HCl (Aricept -) 10 mg PO DAILY [facility] Last Admin: 03/23/16 11:54 Dose: 10 mg Heparin Sodium (Porcine) (Heparin -) 5,000 unit SQ BID [facility] Last Admin: 03/23/16 11:53 Dose: 5,000 unit Dextrose/Sodium Chloride (D5-1/4ns -) 1,000 mls @ 100 mls/hr IV ASDIR [facility] Memantine (Namenda -) 10 mg PO BID [facility] Last Admin: 03/23/16 11:54 Dose: 10 mg Metoprolol Succinate (Toprol Xl -) 25 mg PO DAILY [facility] Last Admin: 03/23/16 11:54 Dose: 25 mg Multivitamins/Minerals/Vitamin C (Tab-A-Vit -) 1 tab PO DAILY [facility] Last Admin: 03/23/16 11:55 Dose: Not Given Oxycodone HCl (Roxicodone -) 5 mg PO Q6H PRN PRN Reason: PAIN Last Admin: 03/23/16 11:53 Dose: 5 mg Pantoprazole Sodium (Protonix -) 40 mg PO DAILY [facility] Last Admin: 03/23/16 11:55 Dose: 40 mg Rosuvastatin Calcium (Crestor -) 10 mg PO HS [facility] Last Admin: 03/22/16 23:22 Dose: Not Given - Objective Vital Signs: Vital Signs Temperature 97.5 F L 03/23/16 07:38 Pulse Rate 73 03/23/16 07:38 Respiratory Rate 18 03/23/16 07:38 Blood Pressure 143/59 03/23/16 07:38 O2 Sat by Pulse Oximetry (%) 98 03/22/16 21:00 Cardiovascular: Yes: Regular Rate and Rhythm, S1, S2 Respiratory: Yes: CTA Bilaterally Gastrointestinal: Yes: Normal Bowel Sounds, Soft Edema: No Labs: CBC, BMP 03/23/16 08:30 03/23/16 08:30 Problem List - Problems (1) Dehydration Code(s): E86.0 - DEHYDRATION (2) Dementia Code(s): F03.90 - UNSPECIFIED DEMENTIA WITHOUT BEHAVIORAL DISTURBANCE (3) Hypernatremia Code(s): E87.0 - HYPEROSMOLALITY AND HYPERNATREMIA (4) Hypokalemia Code(s): E87.6 - HYPOKALEMIA (5) Renal failure (ARF), acute on chronic Code(s): N17.9 - ACUTE KIDNEY FAILURE, UNSPECIFIED N18.9 - CHRONIC KIDNEY DISEASE, UNSPECIFIED (6) COPD (chronic obstructive pulmonary disease) Code(s): J44.9 - CHRONIC OBSTRUCTIVE PULMONARY DISEASE, UNSPECIFIED (7) CHF (congestive heart failure) Code(s): I50.9 - HEART FAILURE, UNSPECIFIED (8) HTN (hypertension) Code(s): I10 - ESSENTIAL (PRIMARY) HYPERTENSION Assessment/Plan (1) Dehydration Code(s): E86.0 - DEHYDRATION RENAL CONSULT APPRECIATED Na 163 Cr 1.7 ON IVF (2) Dementia Code(s): F03.90 - UNSPECIFIED DEMENTIA WITHOUT BEHAVIORAL DISTURBANCE (3) Hypernatremia Code(s): E87.0 - HYPEROSMOLALITY AND HYPERNATREMIA (4) Hypokalemia Code(s): E87.6 - HYPOKALEMIA RESOLVED (5) Renal failure (ARF), acute on chronic Code(s): N17.9 - ACUTE KIDNEY FAILURE, UNSPECIFIED N18.9 - CHRONIC KIDNEY DISEASE, UNSPECIFIED SEE #1 (6) COPD (chronic obstructive pulmonary disease) Code(s): J44.9 - CHRONIC OBSTRUCTIVE PULMONARY DISEASE, UNSPECIFIED CXr -> INFILTRATE WBC NEG NO FEVER ID & PULM CONSULTS APPRECIATED OBSERVE OFF ABx (7) CHF (congestive heart failure) Code(s): I50.9 - HEART FAILURE, UNSPECIFIED BNP INCed CARDIO CONSULT APPRECIATED NO CHF POOR PROGNOSIS/DNR & DNI SUGGESTED -> PALLIATIVE (8) HTN (hypertension) Code(s): I10 - ESSENTIAL (PRIMARY) HYPERTENSION [employer] FM
--- NOTE | 2016-03-23 13:47 | PN ---
Progress Note (short form) - Note Progress Note: PULMONARY Appears comfortable. No fevers recorded. Last Vital Signs Temp Pulse Resp BP Pulse Ox 97.5 F L 73 18 143/59 98 03/23/16 07:38 03/23/16 07:38 03/23/16 07:38 03/23/16 07:38 03/22/16 21:00 Gen: breathing nonlabored Heart: RRR Lung: scattered rales Abd: soft, nontender Ext: no edema CBC, BMP 03/23/16 08:30 03/23/16 08:30 Active Medications Acetaminophen (Tylenol -) 650 mg PO Q6H PRN PRN Reason: FEVER OR PAIN Albuterol Sulfate (Ventolin 0.083% Nebulizer Soln -) 1 amp NEB Q4H PRN PRN Reason: SHORT OF BREATH/WHEEZING Last Admin: 03/22/16 22:33 Dose: 1 amp Ascorbic Acid (Vitamin C -) 500 mg PO DAILY [facility] Last Admin: 03/23/16 11:55 Dose: Not Given Clopidogrel Bisulfate (Plavix -) 75 mg PO DAILY [facility] Last Admin: 03/23/16 11:53 Dose: 75 mg Collagenase (Santyl -) 1 applic TP DAILY [facility] Last Admin: 03/23/16 11:54 Dose: 1 applic Docusate Sodium (Colace -) 200 mg PO HS [facility] Last Admin: 03/22/16 23:22 Dose: Not Given Donepezil HCl (Aricept -) 10 mg PO DAILY [facility] Last Admin: 03/23/16 11:54 Dose: 10 mg Heparin Sodium (Porcine) (Heparin -) 5,000 unit SQ BID [facility] Last Admin: 03/23/16 11:53 Dose: 5,000 unit Dextrose/Sodium Chloride (D5-1/4ns -) 1,000 mls @ 100 mls/hr IV ASDIR [facility] Memantine (Namenda -) 10 mg PO BID [facility] Last Admin: 03/23/16 11:54 Dose: 10 mg Metoprolol Succinate (Toprol Xl -) 25 mg PO DAILY [facility] Last Admin: 03/23/16 11:54 Dose: 25 mg Multivitamins/Minerals/Vitamin C (Tab-A-Vit -) 1 tab PO DAILY [facility] Last Admin: 03/23/16 11:55 Dose: Not Given Oxycodone HCl (Roxicodone -) 5 mg PO Q6H PRN PRN Reason: PAIN Last Admin: 03/23/16 11:53 Dose: 5 mg Pantoprazole Sodium (Protonix -) 40 mg PO DAILY [facility] Last Admin: 03/23/16 11:55 Dose: 40 mg Rosuvastatin Calcium (Crestor -) 10 mg PO HS [facility] Last Admin: 03/22/16 23:22 Dose: Not Given A/P Abnormal CXR likely atelectasis Hypernatremia/Dehydration Advanced Dementia COPD LV Systolic Dysfunction Failure to Thrive - monitor off antibiotics - IVF, replace free water - aspiration precautions - inhaled bronchodilators as needed - continue discussions regarding goals of care, recommend palliative care - DVT prophylaxis Problem List - Problems (1) Dementia Code(s): F03.90 - UNSPECIFIED DEMENTIA WITHOUT BEHAVIORAL DISTURBANCE (2) Hypernatremia Code(s): E87.0 - HYPEROSMOLALITY AND HYPERNATREMIA (3) COPD (chronic obstructive pulmonary disease) Code(s): J44.9 - CHRONIC OBSTRUCTIVE PULMONARY DISEASE, UNSPECIFIED (4) Failure to thrive Code(s): TLV0156 - Qualifiers: Failure to thrive age range: in adult Qualified Code(s): R62.7 - Adult failure to thrive (5) 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
[2016-03-23] MEDS ORDERED: morphine CARPU-JECT 2 MG/1 ML DISP.SYRIN IVPUSH PRN (14:33)
[2016-03-23] MEDS: DEXTROSE 5%-0.2% SALINE - 1,000 ML IV SCH (15:00)
[2016-03-23] MEDS: DOCUSATE SODIUM 100 MG CAPSULE (FP) PO SCH (23:30)
[2016-03-23] MEDS: ROSUVASTATIN CA 10 MG TABLET (FP) PO SCH (23:31)
[2016-03-24] MEDS: DEXTROSE 5%-0.2% SALINE - 1,000 ML IV SCH ×3 (01:33→20:33)
--- NOTE | 2016-03-24 08:02 | PN ---
Progress Note, Physician - Current Medication List Current Medications: Active Medications Acetaminophen (Tylenol -) 650 mg PO Q6H PRN PRN Reason: FEVER OR PAIN Albuterol Sulfate (Ventolin 0.083% Nebulizer Soln -) 1 amp NEB Q4H PRN PRN Reason: SHORT OF BREATH/WHEEZING Last Admin: 03/22/16 22:33 Dose: 1 amp Ascorbic Acid (Vitamin C -) 500 mg PO DAILY [facility] Last Admin: 03/23/16 11:55 Dose: Not Given Clopidogrel Bisulfate (Plavix -) 75 mg PO DAILY [facility] Last Admin: 03/23/16 11:53 Dose: 75 mg Collagenase (Santyl -) 1 applic TP DAILY [facility] Last Admin: 03/23/16 11:54 Dose: 1 applic Docusate Sodium (Colace -) 200 mg PO HS [facility] Last Admin: 03/23/16 23:30 Dose: 200 mg Donepezil HCl (Aricept -) 10 mg PO DAILY [facility] Last Admin: 03/23/16 11:54 Dose: 10 mg Heparin Sodium (Porcine) (Heparin -) 5,000 unit SQ BID [facility] Last Admin: 03/23/16 23:31 Dose: 5,000 unit Dextrose/Sodium Chloride (D5-1/4ns -) 1,000 mls @ 100 mls/hr IV ASDIR [facility] Last Admin: 03/24/16 01:33 Dose: 100 mls/hr Memantine (Namenda -) 10 mg PO BID [facility] Last Admin: 03/23/16 23:31 Dose: 10 mg Metoprolol Succinate (Toprol Xl -) 25 mg PO DAILY [facility] Last Admin: 03/23/16 11:54 Dose: 25 mg Morphine Sulfate (Morphine Injection -) 1 mg IVPUSH Q4H PRN PRN Reason: PAIN Multivitamins/Minerals/Vitamin C (Tab-A-Vit -) 1 tab PO DAILY [facility] Last Admin: 03/23/16 11:55 Dose: Not Given Oxycodone HCl (Roxicodone -) 5 mg PO Q6H PRN PRN Reason: PAIN Last Admin: 03/23/16 11:53 Dose: 5 mg Pantoprazole Sodium (Protonix -) 40 mg PO DAILY [facility] Last Admin: 03/23/16 11:55 Dose: 40 mg Rosuvastatin Calcium (Crestor -) 10 mg PO HS [facility] Last Admin: 03/23/16 23:31 Dose: 10 mg - Objective Vital Signs: Vital Signs Temperature 97.4 F L 03/24/16 05:53 Pulse Rate 59 L 03/24/16 05:53 Respiratory Rate 18 03/24/16 05:53 Blood Pressure 133/79 03/24/16 05:53 O2 Sat by Pulse Oximetry (%) 98 03/23/16 20:41 Cardiovascular: Yes: S1, S2 Respiratory: Yes: Diminished, On Nasal O2 Gastrointestinal: Yes: Normal Bowel Sounds, Soft Neurological: Yes: Alert, Lethargy, Weakness Labs: CBC, BMP 03/23/16 08:30 Assessment/Plan (1) Dehydration Code(s): E86.0 - DEHYDRATION RENAL CONSULT APPRECIATED Na 160 Cr 1.7 ON IVF (2) Dementia Code(s): F03.90 - UNSPECIFIED DEMENTIA WITHOUT BEHAVIORAL DISTURBANCE (3) Hypernatremia Code(s): E87.0 - HYPEROSMOLALITY AND HYPERNATREMIA (4) Hypokalemia Code(s): E87.6 - HYPOKALEMIA RESOLVED (5) Renal failure (ARF), acute on chronic Code(s): N17.9 - ACUTE KIDNEY FAILURE, UNSPECIFIED N18.9 - CHRONIC KIDNEY DISEASE, UNSPECIFIED SEE #1 (6) COPD (chronic obstructive pulmonary disease) Code(s): J44.9 - CHRONIC OBSTRUCTIVE PULMONARY DISEASE, UNSPECIFIED CXr -> INFILTRATE WBC NEG NO FEVER ID & PULM CONSULTS APPRECIATED OBSERVE OFF ABx (7) CHF (congestive heart failure) Code(s): I50.9 - HEART FAILURE, UNSPECIFIED BNP INCed CARDIO CONSULT APPRECIATED NO CHF POOR PROGNOSIS/DNR & DNI SUGGESTED -> PALLIATIVE (8) HTN (hypertension) Code(s): I10 - ESSENTIAL (PRIMARY) HYPERTENSION
[2016-03-24 08:20] LABS: ALBUMIN 1.9 g/dl (3.4-5.0); BILIRUBIN,TOTAL 0.4 mg/dL (0.2-1.0); CALCIUM 8.7 mg/dL (8.5-10.1); CREATININE 1.7 mg/dL (0.55-1.02); TOT PROT 5.3 g/dl (6.4-8.2)
[2016-03-24] MEDS: COLLAGENASE CLOSTRIDIUM HIST. 30 GRAMS TUBE TP SCH (10:15)
[2016-03-24] MEDS: ASCORBIC ACID 500 MG TABLET (FP) PO SCH (11:29)
[2016-03-24] MEDS: MEMANTINE HCL 10 MG TABLET (FP) PO SCH ×2 (11:29→22:12)
[2016-03-24] MEDS: CLOPIDOGREL BISULFATE 75 MG TABLET (FP) PO SCH (11:29)
[2016-03-24] MEDS: DONEPEZIL HCL 10 MG TABLET (FP) PO SCH (11:29)
[2016-03-24] MEDS: METOPROLOL SUCCINATE 25 MG TAB.SR.24H (FP) PO SCH (11:29)
[2016-03-24] MEDS: PANTOPRAZOLE 40 MG TABLET (FP) PO SCH (11:29)
[2016-03-24] MEDS: MULTIVITAMINS (DAILY MVI) TABLET (FP) PO SCH (11:29)
[2016-03-24] MEDS: HEPARIN NA (PORCINE) 5,000 UNITS/ML 1ML VIAL SQ SCH ×2 (11:30→22:12)
[2016-03-24 11:34] LABS: BASOPHIL 0.7 % (0-2.0); EOSINOPHIL 2.8 % (0-4.5); MCHC 31.2 g/dl (32.0-36.0); MEAN CELL VOLUME 96.3 fl (80-96); MEAN PLT VOLUME 9.4 fl (7.5-11.1); NEUTROPHILS 65.7 % (42.8-82.8); PLATELET COUNT 213 K/MM3 (134-434); RDW 16.4 % (11.6-15.6); WHITE BLOOD COUNT 5.9 K/mm3 (4.0-10.0)
--- NOTE | 2016-03-24 11:38 | PN ---
Progress Note (short form) - Note Progress Note: PULMONARY Appears comfortable. No fevers recorded. Last Vital Signs Temp Pulse Resp BP Pulse Ox 97.4 F L 54 L 18 133/79 99 03/24/16 05:53 03/24/16 09:19 03/24/16 05:53 03/24/16 05:53 03/24/16 09:19 Gen: breathing nonlabored Heart: RRR Lung: scattered rhonchi Abd: soft, nontender Ext: no edema CBC, BMP 03/24/16 06:05 Active Medications Acetaminophen (Tylenol -) 650 mg PO Q6H PRN PRN Reason: FEVER OR PAIN Albuterol Sulfate (Ventolin 0.083% Nebulizer Soln -) 1 amp NEB Q4H PRN PRN Reason: SHORT OF BREATH/WHEEZING Last Admin: 03/22/16 22:33 Dose: 1 amp Ascorbic Acid (Vitamin C -) 500 mg PO DAILY [facility] Last Admin: 03/24/16 11:29 Dose: 500 mg Clopidogrel Bisulfate (Plavix -) 75 mg PO DAILY [facility] Last Admin: 03/24/16 11:29 Dose: 75 mg Collagenase (Santyl -) 1 applic TP DAILY [facility] Last Admin: 03/23/16 11:54 Dose: 1 applic Docusate Sodium (Colace -) 200 mg PO HS [facility] Last Admin: 03/23/16 23:30 Dose: 200 mg Donepezil HCl (Aricept -) 10 mg PO DAILY [facility] Last Admin: 03/24/16 11:29 Dose: 10 mg Heparin Sodium (Porcine) (Heparin -) 5,000 unit SQ BID [facility] Last Admin: 03/24/16 11:30 Dose: 5,000 unit Dextrose/Sodium Chloride (D5-1/4ns -) 1,000 mls @ 100 mls/hr IV ASDIR [facility] Last Admin: 03/24/16 01:33 Dose: 100 mls/hr Memantine (Namenda -) 10 mg PO BID [facility] Last Admin: 03/24/16 11:29 Dose: 10 mg Metoprolol Succinate (Toprol Xl -) 25 mg PO DAILY [facility] Last Admin: 03/24/16 11:29 Dose: 25 mg Morphine Sulfate (Morphine Injection -) 1 mg IVPUSH Q4H PRN PRN Reason: PAIN Multivitamins/Minerals/Vitamin C (Tab-A-Vit -) 1 tab PO DAILY [facility] Last Admin: 03/24/16 11:29 Dose: 1 tab Oxycodone HCl (Roxicodone -) 5 mg PO Q6H PRN PRN Reason: PAIN Last Admin: 03/23/16 11:53 Dose: 5 mg Pantoprazole Sodium (Protonix -) 40 mg PO DAILY [facility] Last Admin: 03/24/16 11:29 Dose: 40 mg Rosuvastatin Calcium (Crestor -) 10 mg PO HS [facility] Last Admin: 03/23/16 23:31 Dose: 10 mg A/P Abnormal CXR likely atelectasis Hypernatremia/Dehydration Advanced Dementia COPD LV Systolic Dysfunction Failure to Thrive - monitor off antibiotics - IVF, replace free water - aspiration precautions - inhaled bronchodilators as needed - continue discussions regarding goals of care, recommend palliative care - DVT prophylaxis Problem List - Problems (1) Dementia Code(s): F03.90 - UNSPECIFIED DEMENTIA WITHOUT BEHAVIORAL DISTURBANCE (2) Hypernatremia Code(s): E87.0 - HYPEROSMOLALITY AND HYPERNATREMIA (3) COPD (chronic obstructive pulmonary disease) Code(s): J44.9 - CHRONIC OBSTRUCTIVE PULMONARY DISEASE, UNSPECIFIED (4) Failure to thrive Code(s): EKD3196 - Qualifiers: Failure to thrive age range: in adult Qualified Code(s): R62.7 - Adult failure to thrive (5) 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
--- NOTE | 2016-03-24 13:22 | PN ---
Progress Note, Physician History of Present Illness: No events overnight. Patient appears to be resting comfortably. - Current Medication List Current Medications: Active Medications Acetaminophen (Tylenol -) 650 mg PO Q6H PRN PRN Reason: FEVER OR PAIN Albuterol Sulfate (Ventolin 0.083% Nebulizer Soln -) 1 amp NEB Q4H PRN PRN Reason: SHORT OF BREATH/WHEEZING Last Admin: 03/22/16 22:33 Dose: 1 amp Ascorbic Acid (Vitamin C -) 500 mg PO DAILY [facility] Last Admin: 03/24/16 11:29 Dose: 500 mg Clopidogrel Bisulfate (Plavix -) 75 mg PO DAILY [facility] Last Admin: 03/24/16 11:29 Dose: 75 mg Collagenase (Santyl -) 1 applic TP DAILY [facility] Last Admin: 03/24/16 10:15 Dose: 1 applic Docusate Sodium (Colace -) 200 mg PO HS [facility] Last Admin: 03/23/16 23:30 Dose: 200 mg Donepezil HCl (Aricept -) 10 mg PO DAILY [facility] Last Admin: 03/24/16 11:29 Dose: 10 mg Heparin Sodium (Porcine) (Heparin -) 5,000 unit SQ BID [facility] Last Admin: 03/24/16 11:30 Dose: 5,000 unit Dextrose/Sodium Chloride (D5-1/4ns -) 1,000 mls @ 100 mls/hr IV ASDIR [facility] Last Admin: 03/24/16 13:10 Dose: 100 mls/hr Memantine (Namenda -) 10 mg PO BID [facility] Last Admin: 03/24/16 11:29 Dose: 10 mg Metoprolol Succinate (Toprol Xl -) 25 mg PO DAILY [facility] Last Admin: 03/24/16 11:29 Dose: 25 mg Morphine Sulfate (Morphine Injection -) 1 mg IVPUSH Q4H PRN PRN Reason: PAIN Multivitamins/Minerals/Vitamin C (Tab-A-Vit -) 1 tab PO DAILY [facility] Last Admin: 03/24/16 11:29 Dose: 1 tab Oxycodone HCl (Roxicodone -) 5 mg PO Q6H PRN PRN Reason: PAIN Last Admin: 03/23/16 11:53 Dose: 5 mg Pantoprazole Sodium (Protonix -) 40 mg PO DAILY [facility] Last Admin: 03/24/16 11:29 Dose: 40 mg Rosuvastatin Calcium (Crestor -) 10 mg PO HS [facility] Last Admin: 03/23/16 23:31 Dose: 10 mg - Objective Vital Signs: Vital Signs Temperature 97.4 F L 03/24/16 05:53 Pulse Rate 54 L 03/24/16 09:19 Respiratory Rate 18 03/24/16 05:53 Blood Pressure 133/79 03/24/16 05:53 O2 Sat by Pulse Oximetry (%) 99 03/24/16 09:19 Constitutional: Yes: No Distress HENT: Yes: Normocephalic Cardiovascular: Yes: Regular Rate and Rhythm Respiratory: Yes: CTA Bilaterally Gastrointestinal: Yes: Normal Bowel Sounds, Soft. No: Distention Edema: No Neurological: Yes: Unresponsive Labs: CBC, BMP 03/24/16 11:30 03/24/16 06:05 Assessment/Plan 86 yo female with DM, dementia, COPD, CVA (noted on 11/16/[address]), CKD, GERD, chronic systolic CHF, and multiple hospitalizations for dehydration. Patient with elevated BNP, but does not appear to be in decompensated CHF. Would not treat patient for heart failure based solely on elevated BNP, as her clinical picture is not suggestive of decompensated CHF. Rather she appears to be clinically dehydrated again based on hypernatremia. No need for diuretics at this time. Patient with poor overall prognosis and cardiac meds are of limited benefit in this patient's case given her repeated admissions for dehydration & renal failure. Patient with mildly elevated troponin of 0.98 (03/22) in setting of renal failure with Cr 1.5 -> trop 0.83 with Cr 1.7 today (03/24). Patient does not appear to be in distress. RECS: Patient's elevated trop may be due to renal failure, but patient also likely has underlying CAD given her LV systolic dysfunction. Regardless, will treat patient with conservative medical management. Given patient's dementia, advanced age, and overall clinical status, will defer invasive cardiac work-up or intervention (e.g. cardiac catheterization). Will continue metoprolol succinate 25 mg po daily given LV systolic dysfunction and probable CAD. Continue Plavix 75 mg po daily. If patient's renal function normalizes and patient is able to take po meds consistently, may consider starting DEMARCUS-inhibitor for better BP control and LV systolic dysfunction. However, the risk outweighs any benefit at this time given patient's propensity for developing acuet renal failure as demonstrated by her multiple admission. Patient is DNR/DNI. Will see prn. Call with questions.
--- NOTE | 2016-03-24 16:51 | PN ---
Progress Note (short form) - Note Progress Note: Renal Follow up for TROY and Hypernatermia Pt seen and examined at the bedside this morning lethargic no overnight events Vital Signs Temperature 97.5 F L 03/24/16 14:03 Pulse Rate 51 L 03/24/16 14:03 Respiratory Rate 20 03/24/16 14:03 Blood Pressure 141/55 03/24/16 14:03 O2 Sat by Pulse Oximetry (%) 99 03/24/16 09:19 Intake & Output 03/21/16 03/22/16 03/23/16 03/24/16 23:59 23:59 23:59 23:59 Intake Total 168 1094 1400 Balance 168 1094 1400 Weight 112 lb 112 lb Gen: Lethargic CVS: RRR Lungs: CTA Abd Soft NT/ND Ext: No edema, clubbing or cyanosis CBC, BMP 03/24/16 11:30 03/24/16 06:05 Laboratory Tests 03/24/16 06:05 Calcium 8.7 Albumin 1.9 L Current Medications Acetaminophen (Tylenol -) 650 mg PO Q6H PRN PRN Reason: FEVER OR PAIN Albuterol Sulfate (Ventolin 0.083% Nebulizer Soln -) 1 amp NEB Q4H PRN PRN Reason: SHORT OF BREATH/WHEEZING Last Admin: 03/22/16 22:33 Dose: 1 amp Ascorbic Acid (Vitamin C -) 500 mg PO DAILY [facility] Last Admin: 03/24/16 11:29 Dose: 500 mg Clopidogrel Bisulfate (Plavix -) 75 mg PO DAILY [facility] Last Admin: 03/24/16 11:29 Dose: 75 mg Collagenase (Santyl -) 1 applic TP DAILY [facility] Last Admin: 03/24/16 10:15 Dose: 1 applic Docusate Sodium (Colace -) 200 mg PO HS [facility] Last Admin: 03/23/16 23:30 Dose: 200 mg Donepezil HCl (Aricept -) 10 mg PO DAILY [facility] Last Admin: 03/24/16 11:29 Dose: 10 mg Heparin Sodium (Porcine) (Heparin -) 5,000 unit SQ BID [facility] Last Admin: 03/24/16 11:30 Dose: 5,000 unit Dextrose/Sodium Chloride (D5-1/4ns -) 1,000 mls @ 100 mls/hr IV ASDIR [facility] Last Admin: 03/24/16 13:10 Dose: 100 mls/hr Memantine (Namenda -) 10 mg PO BID [facility] Last Admin: 03/24/16 11:29 Dose: 10 mg Metoprolol Succinate (Toprol Xl -) 25 mg PO DAILY [facility] Last Admin: 03/24/16 11:29 Dose: 25 mg Morphine Sulfate (Morphine Injection -) 1 mg IVPUSH Q4H PRN PRN Reason: PAIN Multivitamins/Minerals/Vitamin C (Tab-A-Vit -) 1 tab PO DAILY [facility] Last Admin: 03/24/16 11:29 Dose: 1 tab Oxycodone HCl (Roxicodone -) 5 mg PO Q6H PRN PRN Reason: PAIN Last Admin: 03/23/16 11:53 Dose: 5 mg Pantoprazole Sodium (Protonix -) 40 mg PO DAILY [facility] Last Admin: 03/24/16 11:29 Dose: 40 mg Rosuvastatin Calcium (Crestor -) 10 mg PO HS [facility] Last Admin: 03/23/16 23:31 Dose: 10 mg A/P 86 year old woman with PMhx of CKD, CVA, COPD, CHF, Dementia, DM,. GERD, Hypertension presented with hypernatremia and abnormal renal function. #Hypernatremia in setting of CKD Continue 1/ NS with KCL Na improving no evidence of volume overload at this time Trend Na Q24hr #Hypokalemia KCL 40meq PO in addition to KCL in IVF Check Mg levels to ensure > 2 #CKD with recent TROY Renal function is improved from prior admission No indication for [employer]UC[employer] Thank you Miguel High DO
--- NOTE | 2016-03-24 17:08 | EKG ---
Test Reason : Blood Pressure : / mmHG Vent. Rate : 072 BPM Atrial Rate : 072 BPM P-R Int : 208 ms QRS Dur : 180 ms QT Int : 468 ms P-R-T Axes : 089 -39 -40 degrees QTc Int : 512 ms NORMAL SINUS RHYTHM LEFT AXIS DEVIATION LEFT BUNDLE BRANCH BLOCK ABNORMAL ECG WHEN COMPARED WITH ECG OF 21-MAR-2016 22:31, NO SIGNIFICANT CHANGE WAS FOUND Confirmed by JACOB NEWMAN MD ([id number]) on 03/24/2016 5:07:48 PM Referred By: Confirmed By:JACOB NEWMAN MD
--- NOTE | 2016-03-24 18:09 | PN ---
Progress Note (short form) - Note Progress Note: This patient was last seen by vascular surgery 03/14 for her left heel ulcer. During that admission she had baseline PVR studies completed which revealed poor waveforms to her lower ext, left worse than right. Her medical conditions were being stabilized prior to any further vascular workup. It was recommended to proceed with a CTA/or also a CO angiogram. She has been admitted several times for hypernatremia/dehydration, including this admission. Vital Signs Period Temp Pulse Resp BP Sys/Ravi Pulse Ox Last 24 Hr 94.2 F-97.9 F 50-60 18-20 123-149/54-79 98-99 PE: GEN: Alert with tactile stimuli LLE:Left heel with protector, eschar now appears softer and is sloughing off in various points. No erythema, faint odor. foot warm to touch. dorsal aspect of foot with 3x3 superficial ulcer, tendon exposed RLE: skin with superficial blister( which has opened) otherwise skin not erythematous. Heel protector in place. CBC, BMP 03/24/16 11:30 03/24/16 06:05 Laboratory Tests 03/06/16 03/13/16 11:20 06:00 WBC 8.2 Hgb 9.3 L Hct 30.7 L BUN 32 H D Creatinine 2.0 H Problem List - Problems (1) Foot ulcer Assessment/Plan: Case D/w Dr. Gallardo, to continue local wound care with santyl to left heel. Xeroform to left dorsal wound. Heel protectors b/l and right heel with life heel(allevyn dressing) Once medically optimized and family aggress may proceed with further vascular studies, CTA/ CO2 angiogram Code(s): L97.509 - NON-PRESSURE CHRONIC ULCER OTH PRT UNSP FOOT W UNSP SEVERITY Qualifiers: Laterality: left
--- NOTE | 2016-03-24 20:13 | PN ---
Progress Note (short form) - Note Progress Note: Vascular Surgery Pt seen and examined with son at bedside. Explained to son that pt will need angiogram when stable. Can prob do angiogram under CO2 if Creatinine is too high. Cont to medically optimize. Once stable we can do angiogram prior to DC. Poncho Gallardo DO
[2016-03-24] MEDS: DOCUSATE SODIUM 100 MG CAPSULE (FP) PO SCH (22:12)
[2016-03-24] MEDS: ROSUVASTATIN CA 10 MG TABLET (FP) PO SCH (22:12)
[2016-03-25 06:56] LABS: BASOPHIL 0.7 % (0-2.0); EOSINOPHIL 3.7 % (0-4.5); MCH 30.2 pg (25.7-33.7); MCHC 32.2 g/dl (32.0-36.0); MEAN CELL VOLUME 93.9 fl (80-96); MEAN PLT VOLUME 8.9 fl (7.5-11.1); NEUTROPHILS 60.3 % (42.8-82.8); PLATELET COUNT 174 K/MM3 (134-434); RDW 16.1 % (11.6-15.6); WHITE BLOOD COUNT 5.7 K/mm3 (4.0-10.0)
[2016-03-25 07:43] LABS: CALCIUM 8.3 mg/dL (8.5-10.1); CREATININE 1.5 mg/dL (0.55-1.02)
--- NOTE | 2016-03-25 08:57 | PN ---
Progress Note, Physician - Current Medication List Current Medications: Active Medications Acetaminophen (Tylenol -) 650 mg PO Q6H PRN PRN Reason: FEVER OR PAIN Albuterol Sulfate (Ventolin 0.083% Nebulizer Soln -) 1 amp NEB Q4H PRN PRN Reason: SHORT OF BREATH/WHEEZING Last Admin: 03/22/16 22:33 Dose: 1 amp Ascorbic Acid (Vitamin C -) 500 mg PO DAILY [facility] Last Admin: 03/24/16 11:29 Dose: 500 mg Clopidogrel Bisulfate (Plavix -) 75 mg PO DAILY [facility] Last Admin: 03/24/16 11:29 Dose: 75 mg Collagenase (Santyl -) 1 applic TP DAILY [facility] Last Admin: 03/24/16 10:15 Dose: 1 applic Docusate Sodium (Colace -) 200 mg PO HS [facility] Last Admin: 03/24/16 22:12 Dose: Not Given Donepezil HCl (Aricept -) 10 mg PO DAILY [facility] Last Admin: 03/24/16 11:29 Dose: 10 mg Heparin Sodium (Porcine) (Heparin -) 5,000 unit SQ BID [facility] Last Admin: 03/24/16 22:12 Dose: 5,000 unit Dextrose/Sodium Chloride (D5-1/4ns -) 1,000 mls @ 100 mls/hr IV ASDIR [facility] Last Admin: 03/24/16 20:33 Dose: 100 mls/hr Memantine (Namenda -) 10 mg PO BID [facility] Last Admin: 03/24/16 22:12 Dose: 10 mg Metoprolol Succinate (Toprol Xl -) 25 mg PO DAILY [facility] Last Admin: 03/24/16 11:29 Dose: 25 mg Morphine Sulfate (Morphine Injection -) 1 mg IVPUSH Q4H PRN PRN Reason: PAIN Multivitamins/Minerals/Vitamin C (Tab-A-Vit -) 1 tab PO DAILY [facility] Last Admin: 03/24/16 11:29 Dose: 1 tab Oxycodone HCl (Roxicodone -) 5 mg PO Q6H PRN PRN Reason: PAIN Last Admin: 03/23/16 11:53 Dose: 5 mg Pantoprazole Sodium (Protonix -) 40 mg PO DAILY [facility] Last Admin: 03/24/16 11:29 Dose: 40 mg Rosuvastatin Calcium (Crestor -) 10 mg PO HS [facility] Last Admin: 03/24/16 22:12 Dose: 10 mg - Objective Vital Signs: Vital Signs Temperature 97.7 F 03/25/16 06:00 Pulse Rate 58 L 03/25/16 06:00 Respiratory Rate 20 03/25/16 06:00 Blood Pressure 121/59 03/25/16 06:00 O2 Sat by Pulse Oximetry (%) 97 03/24/16 21:00 Cardiovascular: Yes: S1, S2 Respiratory: Yes: Regular, CTA Bilaterally Gastrointestinal: Yes: Normal Bowel Sounds, Soft Neurological: Yes: Lethargy Labs: CBC, BMP 03/25/16 05:35 03/25/16 05:35 Assessment/Plan (1) Dehydration Code(s): E86.0 - DEHYDRATION RENAL CONSULT APPRECIATED NA IMPROVING ON IVF (2) Dementia Code(s): F03.90 - UNSPECIFIED DEMENTIA WITHOUT BEHAVIORAL DISTURBANCE (3) Hypernatremia Code(s): E87.0 - HYPEROSMOLALITY AND HYPERNATREMIA (4) Hypokalemia Code(s): E87.6 - HYPOKALEMIA RESOLVED (5) Renal failure (ARF), acute on chronic Code(s): N17.9 - ACUTE KIDNEY FAILURE, UNSPECIFIED N18.9 - CHRONIC KIDNEY DISEASE, UNSPECIFIED SEE #1 (6) COPD (chronic obstructive pulmonary disease) Code(s): J44.9 - CHRONIC OBSTRUCTIVE PULMONARY DISEASE, UNSPECIFIED CXr -> INFILTRATE WBC NEG NO FEVER ID & PULM CONSULTS APPRECIATED OBSERVE OFF ABx (7) CHF (congestive heart failure) Code(s): I50.9 - HEART FAILURE, UNSPECIFIED BNP INCed CARDIO CONSULT APPRECIATED NO CHF POOR PROGNOSIS/DNR & DNI SUGGESTED -> PALLIATIVE (8) HTN (hypertension) Code(s): I10 - ESSENTIAL (PRIMARY) HYPERTENSION
--- NOTE | 2016-03-25 10:38 | PN ---
Progress Note (short form) - Note Progress Note: PULMONARY Appears comfortable. No fevers recorded. Last Vital Signs Temp Pulse Resp BP Pulse Ox 97.7 F 58 L 20 121/59 97 03/25/16 06:00 03/25/16 06:00 03/25/16 06:00 03/25/16 06:00 03/24/16 21:00 Gen: breathing nonlabored Heart: RRR Lung: scattered rhonchi Abd: soft, nontender Ext: no edema CBC, BMP 03/25/16 05:35 03/25/16 05:35 Active Medications Acetaminophen (Tylenol -) 650 mg PO Q6H PRN PRN Reason: FEVER OR PAIN Albuterol Sulfate (Ventolin 0.083% Nebulizer Soln -) 1 amp NEB Q4H PRN PRN Reason: SHORT OF BREATH/WHEEZING Last Admin: 03/22/16 22:33 Dose: 1 amp Ascorbic Acid (Vitamin C -) 500 mg PO DAILY [facility] Last Admin: 03/24/16 11:29 Dose: 500 mg Clopidogrel Bisulfate (Plavix -) 75 mg PO DAILY [facility] Last Admin: 03/24/16 11:29 Dose: 75 mg Collagenase (Santyl -) 1 applic TP DAILY [facility] Last Admin: 03/24/16 10:15 Dose: 1 applic Docusate Sodium (Colace -) 200 mg PO HS [facility] Last Admin: 03/24/16 22:12 Dose: Not Given Donepezil HCl (Aricept -) 10 mg PO DAILY [facility] Last Admin: 03/24/16 11:29 Dose: 10 mg Heparin Sodium (Porcine) (Heparin -) 5,000 unit SQ BID [facility] Last Admin: 03/24/16 22:12 Dose: 5,000 unit Dextrose/Sodium Chloride (D5-1/4ns -) 1,000 mls @ 100 mls/hr IV ASDIR [facility] Last Admin: 03/24/16 20:33 Dose: 100 mls/hr Potassium Phosphate 15 mm/ (Dextrose) 255 mls @ 62.5 mls/hr IVPB ONCE ONE Stop: 03/25/16 14:13 Memantine (Namenda -) 10 mg PO BID [facility] Last Admin: 03/24/16 22:12 Dose: 10 mg Metoprolol Succinate (Toprol Xl -) 25 mg PO DAILY [facility] Last Admin: 03/24/16 11:29 Dose: 25 mg Morphine Sulfate (Morphine Injection -) 1 mg IVPUSH Q4H PRN PRN Reason: PAIN Multivitamins/Minerals/Vitamin C (Tab-A-Vit -) 1 tab PO DAILY [facility] Last Admin: 03/24/16 11:29 Dose: 1 tab Oxycodone HCl (Roxicodone -) 5 mg PO Q6H PRN PRN Reason: PAIN Last Admin: 03/23/16 11:53 Dose: 5 mg Pantoprazole Sodium (Protonix -) 40 mg PO DAILY [facility] Last Admin: 03/24/16 11:29 Dose: 40 mg Potassium Chloride (K-Dur -) 20 meq PO ONCE ONE Stop: 03/25/16 10:10 Rosuvastatin Calcium (Crestor -) 10 mg PO HS [facility] Last Admin: 03/24/16 22:12 Dose: 10 mg A/P Abnormal CXR likely atelectasis Hypernatremia/Dehydration Advanced Dementia COPD LV Systolic Dysfunction Failure to Thrive - monitor off antibiotics - IVF, replace free water - replete lytes - aspiration precautions - inhaled bronchodilators as needed - continue discussions regarding goals of care, recommend palliative care - DVT prophylaxis Problem List - Problems (1) Dementia Code(s): F03.90 - UNSPECIFIED DEMENTIA WITHOUT BEHAVIORAL DISTURBANCE (2) Hypernatremia Code(s): E87.0 - HYPEROSMOLALITY AND HYPERNATREMIA (3) COPD (chronic obstructive pulmonary disease) Code(s): J44.9 - CHRONIC OBSTRUCTIVE PULMONARY DISEASE, UNSPECIFIED (4) Failure to thrive Code(s): OOL2449 - Qualifiers: Failure to thrive age range: in adult Qualified Code(s): R62.7 - Adult failure to thrive (5) 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
[2016-03-25] MEDS ORDERED: POTASSIUM CHLORIDE TABS 20 MEQ TABLET.ER (FP) PO ONE ×2 (11:15→19:15)
[2016-03-25] MEDS ORDERED: POTASSIUM PHOSPHATE 15 MM in DEXTROSE 5%-WATER - 250 ML IVPB ONE (11:15)
--- NOTE | 2016-03-25 11:19 | PN ---
Progress Note (short form) - Note Progress Note: Renal Follow up for TROY and Hypernatermia Pt seen and examined at the bedside son at the bedside pt still unresponsive on IVF Vital Signs Temperature 97.7 F 03/25/16 06:00 Pulse Rate 55 L 03/25/16 09:20 Respiratory Rate 20 03/25/16 06:00 Blood Pressure 121/59 03/25/16 06:00 O2 Sat by Pulse Oximetry (%) 97 03/25/16 09:20 Intake & Output 03/22/16 03/23/16 03/24/16 03/25/16 23:59 23:59 23:59 23:59 Intake Total 168 1094 1400 1100 Balance 168 1094 1400 1100 Weight 112 lb Gen: Lethargic CVS: RRR Lungs: CTA Abd Soft NT/ND Ext: No edema, clubbing or cyanosis CBC, BMP 03/25/16 05:35 03/25/16 05:35 Current Medications Acetaminophen (Tylenol -) 650 mg PO Q6H PRN PRN Reason: FEVER OR PAIN Albuterol Sulfate (Ventolin 0.083% Nebulizer Soln -) 1 amp NEB Q4H PRN PRN Reason: SHORT OF BREATH/WHEEZING Last Admin: 03/22/16 22:33 Dose: 1 amp Ascorbic Acid (Vitamin C -) 500 mg PO DAILY [facility] Last Admin: 03/24/16 11:29 Dose: 500 mg Clopidogrel Bisulfate (Plavix -) 75 mg PO DAILY [facility] Last Admin: 03/24/16 11:29 Dose: 75 mg Collagenase (Santyl -) 1 applic TP DAILY [facility] Last Admin: 03/24/16 10:15 Dose: 1 applic Docusate Sodium (Colace -) 200 mg PO HS [facility] Last Admin: 03/24/16 22:12 Dose: Not Given Donepezil HCl (Aricept -) 10 mg PO DAILY [facility] Last Admin: 03/24/16 11:29 Dose: 10 mg Heparin Sodium (Porcine) (Heparin -) 5,000 unit SQ BID [facility] Last Admin: 03/24/16 22:12 Dose: 5,000 unit Dextrose/Sodium Chloride (D5-1/4ns -) 1,000 mls @ 100 mls/hr IV ASDIR [facility] Last Admin: 03/24/16 20:33 Dose: 100 mls/hr Potassium Phosphate 15 mm/ (Dextrose) 255 mls @ 62.5 mls/hr IVPB ONCE ONE Stop: 03/25/16 15:19 Memantine (Namenda -) 10 mg PO BID [facility] Last Admin: 03/24/16 22:12 Dose: 10 mg Metoprolol Succinate (Toprol Xl -) 25 mg PO DAILY [facility] Last Admin: 03/24/16 11:29 Dose: 25 mg Morphine Sulfate (Morphine Injection -) 1 mg IVPUSH Q4H PRN PRN Reason: PAIN Multivitamins/Minerals/Vitamin C (Tab-A-Vit -) 1 tab PO DAILY [facility] Last Admin: 03/24/16 11:29 Dose: 1 tab Oxycodone HCl (Roxicodone -) 5 mg PO Q6H PRN PRN Reason: PAIN Last Admin: 03/23/16 11:53 Dose: 5 mg Pantoprazole Sodium (Protonix -) 40 mg PO DAILY [facility] Last Admin: 03/24/16 11:29 Dose: 40 mg Potassium Chloride (K-Dur -) 20 meq PO ONCE ONE Stop: 03/25/16 11:16 Rosuvastatin Calcium (Crestor -) 10 mg PO HS [facility] Last Admin: 03/24/16 22:12 Dose: 10 mg A/P 86 year old woman with PMhx of CKD, CVA, COPD, CHF, Dementia, DM,. GERD, Hypertension presented with hypernatremia and abnormal renal function. #Hypernatremia in setting of CKD improving with hypotonic IVF given that pt will not be able to tolerate a oral diet this will be a recurring issue. This was addressed with the son who said that he does not want to have a PEG or G-tube placed. He said that would does not want any aggressive interventions. He would like to have a do not hospitalize order when [facility]. #Hypokalemia Give KCl 20meq PO Givek K-phos 30mmol IV Continue Kcl with IVF Mg is at goal #CKD with recent TROY Renal function improving Thank you Miguel High DO
[2016-03-25] MEDS: DONEPEZIL HCL 10 MG TABLET (FP) PO SCH (11:42)
[2016-03-25] MEDS: MULTIVITAMINS (DAILY MVI) TABLET (FP) PO SCH (11:43)
[2016-03-25] MEDS: PANTOPRAZOLE 40 MG TABLET (FP) PO SCH (11:43)
[2016-03-25] MEDS: HEPARIN NA (PORCINE) 5,000 UNITS/ML 1ML VIAL SQ SCH ×2 (11:43→21:59)
[2016-03-25] MEDS: METOPROLOL SUCCINATE 25 MG TAB.SR.24H (FP) PO SCH (11:43)
[2016-03-25] MEDS: ASCORBIC ACID 500 MG TABLET (FP) PO SCH (11:43)
[2016-03-25] MEDS: MEMANTINE HCL 10 MG TABLET (FP) PO SCH ×2 (11:43→21:59)
[2016-03-25] MEDS: COLLAGENASE CLOSTRIDIUM HIST. 30 GRAMS TUBE TP SCH (11:43)
[2016-03-25] MEDS: CLOPIDOGREL BISULFATE 75 MG TABLET (FP) PO SCH (11:43)
[2016-03-25] MEDS: DEXTROSE 5%-0.2% SALINE - 1,000 ML IV SCH ×2 (11:44→16:25)
[2016-03-25] MEDS: oxyCODONE HCL 5 MG TABLET PO PRN (12:54)
[2016-03-25] MEDS: DOCUSATE SODIUM 100 MG CAPSULE (FP) PO SCH (21:59)
[2016-03-25] MEDS: ROSUVASTATIN CA 10 MG TABLET (FP) PO SCH (21:59)
[2016-03-26 08:03] LABS: CALCIUM 8.1 mg/dL (8.5-10.1); MAGNESIUM 1.8 mg/dL (1.8-2.4)
[2016-03-26 08:04] LABS: CREATININE 1.5 mg/dL (0.55-1.02); PHOSPHOROUS 3.2 mg/dL (2.5-4.9)
--- NOTE | 2016-03-26 08:09 | PN ---
Progress Note, Physician - Current Medication List Current Medications: Active Medications Acetaminophen (Tylenol -) 650 mg PO Q6H PRN PRN Reason: FEVER OR PAIN Albuterol Sulfate (Ventolin 0.083% Nebulizer Soln -) 1 amp NEB Q4H PRN PRN Reason: SHORT OF BREATH/WHEEZING Last Admin: 03/22/16 22:33 Dose: 1 amp Ascorbic Acid (Vitamin C -) 500 mg PO DAILY [facility] Last Admin: 03/25/16 11:43 Dose: 500 mg Clopidogrel Bisulfate (Plavix -) 75 mg PO DAILY [facility] Last Admin: 03/25/16 11:43 Dose: 75 mg Collagenase (Santyl -) 1 applic TP DAILY [facility] Last Admin: 03/25/16 11:43 Dose: 1 applic Docusate Sodium (Colace -) 200 mg PO HS [facility] Last Admin: 03/25/16 21:59 Dose: Not Given Donepezil HCl (Aricept -) 10 mg PO DAILY [facility] Last Admin: 03/25/16 11:42 Dose: 10 mg Heparin Sodium (Porcine) (Heparin -) 5,000 unit SQ BID [facility] Last Admin: 03/25/16 21:59 Dose: 5,000 unit Dextrose/Sodium Chloride (D5-1/4ns -) 1,000 mls @ 100 mls/hr IV ASDIR [facility] Last Admin: 03/25/16 16:25 Dose: 100 mls/hr Memantine (Namenda -) 10 mg PO BID [facility] Last Admin: 03/25/16 21:59 Dose: 10 mg Metoprolol Succinate (Toprol Xl -) 25 mg PO DAILY [facility] Last Admin: 03/25/16 11:43 Dose: 25 mg Morphine Sulfate (Morphine Injection -) 1 mg IVPUSH Q4H PRN PRN Reason: PAIN Multivitamins/Minerals/Vitamin C (Tab-A-Vit -) 1 tab PO DAILY [facility] Last Admin: 03/25/16 11:43 Dose: 1 tab Oxycodone HCl (Roxicodone -) 5 mg PO Q6H PRN PRN Reason: PAIN Last Admin: 03/25/16 12:54 Dose: 5 mg Pantoprazole Sodium (Protonix -) 40 mg PO DAILY [facility] Last Admin: 03/25/16 11:43 Dose: 40 mg Rosuvastatin Calcium (Crestor -) 10 mg PO HS [facility] Last Admin: 03/25/16 21:59 Dose: 10 mg - Objective Vital Signs: Vital Signs Temperature 98.1 F 03/26/16 06:00 Pulse Rate 57 L 03/26/16 06:00 Respiratory Rate 18 03/26/16 06:00 Blood Pressure 146/63 03/26/16 06:00 O2 Sat by Pulse Oximetry (%) 97 03/25/16 21:00 Cardiovascular: Yes: S1, S2 Respiratory: Yes: CTA Bilaterally, Diminished Gastrointestinal: Yes: Normal Bowel Sounds, Soft Labs: CBC, BMP 03/25/16 05:35 Assessment/Plan (1) Dehydration Code(s): E86.0 - DEHYDRATION RENAL CONSULT APPRECIATED NA IMPROVING ON IVF CXR (2) Dementia Code(s): F03.90 - UNSPECIFIED DEMENTIA WITHOUT BEHAVIORAL DISTURBANCE (3) Hypernatremia Code(s): E87.0 - HYPEROSMOLALITY AND HYPERNATREMIA (4) Hypokalemia Code(s): E87.6 - HYPOKALEMIA RESOLVED (5) Renal failure (ARF), acute on chronic Code(s): N17.9 - ACUTE KIDNEY FAILURE, UNSPECIFIED N18.9 - CHRONIC KIDNEY DISEASE, UNSPECIFIED SEE #1 (6) COPD (chronic obstructive pulmonary disease) Code(s): J44.9 - CHRONIC OBSTRUCTIVE PULMONARY DISEASE, UNSPECIFIED CXr -> INFILTRATE WBC NEG NO FEVER ID & PULM CONSULTS APPRECIATED OBSERVE OFF ABx (7) CHF (congestive heart failure) Code(s): I50.9 - HEART FAILURE, UNSPECIFIED BNP INCed CARDIO CONSULT APPRECIATED NO CHF POOR PROGNOSIS/DNR & DNI SUGGESTED -> PALLIATIVE (8) HTN (hypertension) Code(s): I10 - ESSENTIAL (PRIMARY) HYPERTENSION
--- NOTE | 2016-03-26 13:48 | PN ---
Progress Note (short form) - Note Progress Note: Renal Follow up for TROY and Hypernatermia Pt seen and examined at the bedside non-verbal Vital Signs Temperature 98.1 F 03/26/16 06:00 Pulse Rate 57 L 03/26/16 06:00 Respiratory Rate 18 03/26/16 06:00 Blood Pressure 146/63 03/26/16 06:00 O2 Sat by Pulse Oximetry (%) 97 03/25/16 21:00 Intake & Output 03/23/16 03/24/16 03/25/16 03/26/16 23:59 23:59 23:59 23:59 Intake Total 1094 1400 1150 1100 Balance 1094 1400 1150 1100 Weight 128 lb 8 oz Gen: Lethargic CVS: RRR Lungs: CTA Abd Soft NT/ND Ext: No edema, clubbing or cyanosis CBC, BMP 03/25/16 05:35 03/26/16 06:00 Current Medications Acetaminophen (Tylenol -) 650 mg PO Q6H PRN PRN Reason: FEVER OR PAIN Albuterol Sulfate (Ventolin 0.083% Nebulizer Soln -) 1 amp NEB Q4H PRN PRN Reason: SHORT OF BREATH/WHEEZING Last Admin: 03/22/16 22:33 Dose: 1 amp Ascorbic Acid (Vitamin C -) 500 mg PO DAILY [facility] Last Admin: 03/25/16 11:43 Dose: 500 mg Clopidogrel Bisulfate (Plavix -) 75 mg PO DAILY [facility] Last Admin: 03/25/16 11:43 Dose: 75 mg Collagenase (Santyl -) 1 applic TP DAILY [facility] Last Admin: 03/25/16 11:43 Dose: 1 applic Docusate Sodium (Colace -) 200 mg PO HS [facility] Last Admin: 03/25/16 21:59 Dose: Not Given Donepezil HCl (Aricept -) 10 mg PO DAILY [facility] Last Admin: 03/25/16 11:42 Dose: 10 mg Heparin Sodium (Porcine) (Heparin -) 5,000 unit SQ BID [facility] Last Admin: 03/25/16 21:59 Dose: 5,000 unit Potassium Chloride 40 meq/ (Dextrose/Sodium Chloride) 1,020 mls @ 100 mls/hr IVPB Q12H [facility] Memantine (Namenda -) 10 mg PO BID [facility] Last Admin: 03/25/16 21:59 Dose: 10 mg Metoprolol Succinate (Toprol Xl -) 25 mg PO DAILY [facility] Last Admin: 03/25/16 11:43 Dose: 25 mg Morphine Sulfate (Morphine Injection -) 1 mg IVPUSH Q4H PRN PRN Reason: PAIN Multivitamins/Minerals/Vitamin C (Tab-A-Vit -) 1 tab PO DAILY [facility] Last Admin: 03/25/16 11:43 Dose: 1 tab Oxycodone HCl (Roxicodone -) 5 mg PO Q6H PRN PRN Reason: PAIN Last Admin: 03/25/16 12:54 Dose: 5 mg Pantoprazole Sodium (Protonix -) 40 mg PO DAILY [facility] Last Admin: 03/25/16 11:43 Dose: 40 mg Rosuvastatin Calcium (Crestor -) 10 mg PO HS [facility] Last Admin: 03/25/16 21:59 Dose: 10 mg A/P 86 year old woman with PMhx of CKD, CVA, COPD, CHF, Dementia, DM,. GERD, Hypertension presented with hypernatremia and abnormal renal function. #Hypernatremia in setting of CKD improving with hypotonic IVF continue 0.2% saline with KCL check bmp in the am #Hypokalemia continue kCL with IVF mg at goal #CKD with recent TROY Renal function improving and now appears stable poor prognosis Thank you Miguel High DO
[2016-03-26] MEDS ORDERED: [UNRECOGNIZED DRUG - OTHER] IVPB SCH (14:30)
[2016-03-26] MEDS ORDERED: POTASSIUM CHLORIDE IVPB SCH (14:30)
[2016-03-26] MEDS ORDERED: DEXTROSE IVPB SCH (14:30)
--- NOTE | 2016-03-26 15:06 | PN ---
Progress Note, Physician History of Present Illness: pulmonary awake,nad.-resp distress - Current Medication List Current Medications: Active Medications Acetaminophen (Tylenol -) 650 mg PO Q6H PRN PRN Reason: FEVER OR PAIN Albuterol Sulfate (Ventolin 0.083% Nebulizer Soln -) 1 amp NEB Q4H PRN PRN Reason: SHORT OF BREATH/WHEEZING Last Admin: 03/22/16 22:33 Dose: 1 amp Ascorbic Acid (Vitamin C -) 500 mg PO DAILY [facility] Last Admin: 03/25/16 11:43 Dose: 500 mg Clopidogrel Bisulfate (Plavix -) 75 mg PO DAILY [facility] Last Admin: 03/25/16 11:43 Dose: 75 mg Collagenase (Santyl -) 1 applic TP DAILY [facility] Last Admin: 03/25/16 11:43 Dose: 1 applic Docusate Sodium (Colace -) 200 mg PO HS [facility] Last Admin: 03/25/16 21:59 Dose: Not Given Donepezil HCl (Aricept -) 10 mg PO DAILY [facility] Last Admin: 03/25/16 11:42 Dose: 10 mg Heparin Sodium (Porcine) (Heparin -) 5,000 unit SQ BID [facility] Last Admin: 03/25/16 21:59 Dose: 5,000 unit Potassium Chloride 40 meq/ (Dextrose/Sodium Chloride) 1,020 mls @ 100 mls/hr IVPB Q10H [facility] Memantine (Namenda -) 10 mg PO BID [facility] Last Admin: 03/25/16 21:59 Dose: 10 mg Metoprolol Succinate (Toprol Xl -) 25 mg PO DAILY [facility] Last Admin: 03/25/16 11:43 Dose: 25 mg Multivitamins/Minerals/Vitamin C (Tab-A-Vit -) 1 tab PO DAILY [facility] Last Admin: 03/25/16 11:43 Dose: 1 tab Oxycodone HCl (Roxicodone -) 5 mg PO Q6H PRN PRN Reason: PAIN Last Admin: 03/25/16 12:54 Dose: 5 mg Pantoprazole Sodium (Protonix -) 40 mg PO DAILY [facility] Last Admin: 03/25/16 11:43 Dose: 40 mg Rosuvastatin Calcium (Crestor -) 10 mg PO HS [facility] Last Admin: 03/25/16 21:59 Dose: 10 mg - Objective Vital Signs: Vital Signs Temperature 97.7 F 03/26/16 14:55 Pulse Rate 56 L 03/26/16 14:55 Respiratory Rate 20 03/26/16 14:55 Blood Pressure 148/55 03/26/16 14:55 O2 Sat by Pulse Oximetry (%) 97 03/25/16 21:00 Constitutional: Yes: Well Nourished, Calm Eyes: Yes: WNL HENT: Yes: WNL Neck: Yes: WNL Cardiovascular: Yes: Regular Rate and Rhythm, S1, S2 Respiratory: Yes: Rhonchi (few scattered luis m rhonchi) Gastrointestinal: Yes: Normal Bowel Sounds, Soft Extremities: Yes: WNL Edema: No Labs: CBC, BMP 03/25/16 05:35 03/26/16 06:00 Assessment/Plan A/P Abnormal CXR likely atelectasis Hypernatremia/Dehydration improving Advanced Dementia COPD LV Systolic Dysfunction Failure to Thrive - IVF, replace free water - replete lytes - aspiration precautions - inhaled bronchodilators prn - DVT prophylaxis - wound care DR BAPTISTE Problem List - Problems (1) Dementia Code(s): F03.90 - UNSPECIFIED DEMENTIA WITHOUT BEHAVIORAL DISTURBANCE (2) Hypernatremia Code(s): E87.0 - HYPEROSMOLALITY AND HYPERNATREMIA (3) COPD (chronic obstructive pulmonary disease) Code(s): J44.9 - CHRONIC OBSTRUCTIVE PULMONARY DISEASE, UNSPECIFIED (4) Failure to thrive Code(s): [id number] - Qualifiers: Failure to thrive age range: in adult Qualified Code(s): R62.7 - Adult failure to thrive (5) 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
[2016-03-26] MEDS: PANTOPRAZOLE 40 MG TABLET (FP) PO SCH (17:44)
[2016-03-26] MEDS: MEMANTINE HCL 10 MG TABLET (FP) PO SCH ×2 (17:44→22:12)
[2016-03-26] MEDS: DONEPEZIL HCL 10 MG TABLET (FP) PO SCH (17:44)
[2016-03-26] MEDS: ASCORBIC ACID 500 MG TABLET (FP) PO SCH (17:45)
[2016-03-26] MEDS: METOPROLOL SUCCINATE 25 MG TAB.SR.24H (FP) PO SCH (17:45)
[2016-03-26] MEDS: MULTIVITAMINS (DAILY MVI) TABLET (FP) PO SCH (17:45)
[2016-03-26] MEDS: [UNRECOGNIZED DRUG - OTHER] IVPB SCH (18:30)
[2016-03-26] MEDS: POTASSIUM CHLORIDE IVPB SCH (18:30)
[2016-03-26] MEDS: DEXTROSE IVPB SCH (18:30)
[2016-03-26] MEDS: HEPARIN NA (PORCINE) 5,000 UNITS/ML 1ML VIAL SQ SCH ×2 (20:46→22:12)
[2016-03-26] MEDS: COLLAGENASE CLOSTRIDIUM HIST. 30 GRAMS TUBE TP SCH (20:46)
[2016-03-26] MEDS: CLOPIDOGREL BISULFATE 75 MG TABLET (FP) PO SCH (20:46)
[2016-03-26] MEDS: DEXTROSE 5%-0.2% SALINE - 1,000 ML IV SCH (20:47)
[2016-03-26] MEDS: DOCUSATE SODIUM 100 MG CAPSULE (FP) PO SCH (22:12)
[2016-03-26] MEDS: ROSUVASTATIN CA 10 MG TABLET (FP) PO SCH (22:12)
[2016-03-27] MEDS: [UNRECOGNIZED DRUG - OTHER] IVPB SCH ×2 (01:23→06:45)
[2016-03-27] MEDS: DEXTROSE IVPB SCH ×2 (01:23→06:45)
[2016-03-27] MEDS: POTASSIUM CHLORIDE IVPB SCH ×2 (01:23→06:45)
[2016-03-27 08:29] LABS: CALCIUM 8.2 mg/dL (8.5-10.1); CREATININE 1.4 mg/dL (0.55-1.02)
[2016-03-27] MEDS: DONEPEZIL HCL 10 MG TABLET (FP) PO SCH (10:47)
[2016-03-27] MEDS: MEMANTINE HCL 10 MG TABLET (FP) PO SCH ×2 (10:48→21:30)
[2016-03-27] MEDS: MULTIVITAMINS (DAILY MVI) TABLET (FP) PO SCH (10:48)
[2016-03-27] MEDS: HEPARIN NA (PORCINE) 5,000 UNITS/ML 1ML VIAL SQ SCH ×2 (10:48→23:05)
[2016-03-27] MEDS: COLLAGENASE CLOSTRIDIUM HIST. 30 GRAMS TUBE TP SCH (10:54)
[2016-03-27] MEDS: PANTOPRAZOLE 40 MG TABLET (FP) PO SCH (10:54)
[2016-03-27] MEDS: CLOPIDOGREL BISULFATE 75 MG TABLET (FP) PO SCH (10:54)
[2016-03-27] MEDS: METOPROLOL SUCCINATE 25 MG TAB.SR.24H (FP) PO SCH (10:55)
[2016-03-27] MEDS: ASCORBIC ACID 500 MG TABLET (FP) PO SCH (10:55)
--- NOTE | 2016-03-27 11:37 | PN ---
Progress Note (short form) - Note Progress Note: PULMONARY Appears comfortable. No fevers recorded. CXR with improvement. Last Vital Signs Temp Pulse Resp BP Pulse Ox 98.2 F 50 L 18 138/56 97 03/26/16 18:58 03/26/16 18:58 03/26/16 21:00 03/26/16 18:58 03/25/16 21:00 Gen: breathing nonlabored Heart: RRR Lung: scattered rhonchi Abd: soft, nontender Ext: no edema CBC, BMP 03/25/16 05:35 03/27/16 06:00 Active Medications Acetaminophen (Tylenol -) 650 mg PO Q6H PRN PRN Reason: FEVER OR PAIN Ascorbic Acid (Vitamin C -) 500 mg PO DAILY [facility] Last Admin: 03/27/16 10:55 Dose: 500 mg Clopidogrel Bisulfate (Plavix -) 75 mg PO DAILY [facility] Last Admin: 03/27/16 10:54 Dose: 75 mg Collagenase (Santyl -) 1 applic TP DAILY [facility] Last Admin: 03/27/16 10:54 Dose: 1 applic Docusate Sodium (Colace -) 200 mg PO HS [facility] Last Admin: 03/26/16 22:12 Dose: 200 mg Donepezil HCl (Aricept -) 10 mg PO DAILY [facility] Last Admin: 03/27/16 10:47 Dose: 10 mg Heparin Sodium (Porcine) (Heparin -) 5,000 unit SQ BID [facility] Last Admin: 03/27/16 10:48 Dose: 5,000 unit Potassium Chloride 40 meq/ (Dextrose/Sodium Chloride) 1,020 mls @ 100 mls/hr IVPB Q10H [facility] Last Admin: 03/27/16 06:45 Dose: 100 mls/hr Memantine (Namenda -) 10 mg PO BID [facility] Last Admin: 03/27/16 10:48 Dose: 10 mg Metoprolol Succinate (Toprol Xl -) 25 mg PO DAILY [facility] Last Admin: 03/27/16 10:55 Dose: 25 mg Multivitamins/Minerals/Vitamin C (Tab-A-Vit -) 1 tab PO DAILY [facility] Last Admin: 03/27/16 10:48 Dose: 1 tab Oxycodone HCl (Roxicodone -) 5 mg PO Q6H PRN PRN Reason: PAIN Last Admin: 03/25/16 12:54 Dose: 5 mg Pantoprazole Sodium (Protonix -) 40 mg PO DAILY [facility] Last Admin: 03/27/16 10:54 Dose: 40 mg Rosuvastatin Calcium (Crestor -) 10 mg PO HS [facility] Last Admin: 03/26/16 22:12 Dose: 10 mg A/P Abnormal CXR likely atelectasis Hypernatremia/Dehydration Advanced Dementia COPD LV Systolic Dysfunction Failure to Thrive - monitor off antibiotics - IVF, replace free water - replete lytes - aspiration precautions - inhaled bronchodilators as needed - continue discussions regarding goals of care, recommend palliative care - DVT prophylaxis Problem List - Problems (1) Dementia Code(s): F03.90 - UNSPECIFIED DEMENTIA WITHOUT BEHAVIORAL DISTURBANCE (2) Hypernatremia Code(s): E87.0 - HYPEROSMOLALITY AND HYPERNATREMIA (3) COPD (chronic obstructive pulmonary disease) Code(s): J44.9 - CHRONIC OBSTRUCTIVE PULMONARY DISEASE, UNSPECIFIED (4) Failure to thrive Code(s): [id number] - Qualifiers: Failure to thrive age range: in adult Qualified Code(s): R62.7 - Adult failure to thrive (5) 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
--- NOTE | 2016-03-27 11:52 | PN ---
Addendum entered and electronically signed by Arturo Modi PA 03/27/16 16:15: patient booked for LLE angio with CO2 at 2pm tomorrow. NPO after midnight except PO meds GI/DVT ppx Medical optimization / clearance Original Note: Progress Note (short form) - Note Progress Note: Patient with left heel ulcer, eschar and tendon exposed to dorsal aspect of foot. Dr. Gallardo explained to son that she will need an angiogram (under CO2 if Cr ^) when stable. Please medically optimize. Once stable we can proceed.
--- NOTE | 2016-03-27 12:20 | PN ---
Progress Note, Physician Chief Complaint: patient on iv f fluids limited po intake d/w gustavo regarding comfort care he will think about it doesnot want feeding tube - Current Medication List Current Medications: Active Medications Acetaminophen (Tylenol -) 650 mg PO Q6H PRN PRN Reason: FEVER OR PAIN Ascorbic Acid (Vitamin C -) 500 mg PO DAILY [facility] Last Admin: 03/27/16 10:55 Dose: 500 mg Clopidogrel Bisulfate (Plavix -) 75 mg PO DAILY [facility] Last Admin: 03/27/16 10:54 Dose: 75 mg Collagenase (Santyl -) 1 applic TP DAILY [facility] Last Admin: 03/27/16 10:54 Dose: 1 applic Docusate Sodium (Colace -) 200 mg PO HS [facility] Last Admin: 03/26/16 22:12 Dose: 200 mg Donepezil HCl (Aricept -) 10 mg PO DAILY [facility] Last Admin: 03/27/16 10:47 Dose: 10 mg Heparin Sodium (Porcine) (Heparin -) 5,000 unit SQ BID [facility] Last Admin: 03/27/16 10:48 Dose: 5,000 unit Potassium Chloride 40 meq/ (Dextrose/Sodium Chloride) 1,020 mls @ 100 mls/hr IVPB Q10H [facility] Last Admin: 03/27/16 06:45 Dose: 100 mls/hr Memantine (Namenda -) 10 mg PO BID [facility] Last Admin: 03/27/16 10:48 Dose: 10 mg Metoprolol Succinate (Toprol Xl -) 25 mg PO DAILY [facility] Last Admin: 03/27/16 10:55 Dose: 25 mg Multivitamins/Minerals/Vitamin C (Tab-A-Vit -) 1 tab PO DAILY [facility] Last Admin: 03/27/16 10:48 Dose: 1 tab Oxycodone HCl (Roxicodone -) 5 mg PO Q6H PRN PRN Reason: PAIN Last Admin: 03/25/16 12:54 Dose: 5 mg Pantoprazole Sodium (Protonix -) 40 mg PO DAILY [facility] Last Admin: 03/27/16 10:54 Dose: 40 mg Rosuvastatin Calcium (Crestor -) 10 mg PO HS [facility] Last Admin: 03/26/16 22:12 Dose: 10 mg - Objective Vital Signs: Vital Signs Temperature 98.2 F 03/26/16 18:58 Pulse Rate 50 L 03/26/16 18:58 Respiratory Rate 18 03/26/16 21:00 Blood Pressure 138/56 03/26/16 18:58 O2 Sat by Pulse Oximetry (%) 97 03/25/16 21:00 Constitutional: Yes: Calm, Thin, Other (no verbal) Cardiovascular: Yes: Regular Rate and Rhythm, S1, S2 Respiratory: Yes: Diminished Gastrointestinal: Yes: Normal Bowel Sounds, Soft Edema: Yes (pedal) Neurological: Yes: Other (eye closed nonverbal) Labs: CBC, BMP 03/25/16 05:35 03/27/16 06:00 Problem List - Problems (1) Dehydration Assessment/Plan: improving with ivf Code(s): E86.0 - DEHYDRATION (2) Dementia Assessment/Plan: nameda and aricept Code(s): F03.90 - UNSPECIFIED DEMENTIA WITHOUT BEHAVIORAL DISTURBANCE (3) Foot ulcer Assessment/Plan: being followed by dr aranda to get angiogram tomorow Code(s): L97.509 - NON-PRESSURE CHRONIC ULCER OTH PRT UNSP FOOT W UNSP SEVERITY Qualifiers: Laterality: left (4) Hypernatremia Assessment/Plan: improving slolwly with IVF Code(s): E87.0 - HYPEROSMOLALITY AND HYPERNATREMIA (5) CAD (coronary artery disease) Assessment/Plan: metorprolol and plavix will monitor h/h if less 8 then chloe tranfuse Code(s): I25.10 - ATHSCL HEART DISEASE OF [place] CORONARY ARTERY W/O ANG PCTRS
--- NOTE | 2016-03-27 14:52 | PN ---
Progress Note (short form) - Note Progress Note: Renal Follow up for TROY and Hypernatermia Pt seen and examined at the bedside non-verbal no overnight events Vital Signs Temperature 97.4 F L 03/27/16 14:43 Pulse Rate 88 03/27/16 14:43 Respiratory Rate 20 03/27/16 14:43 Blood Pressure 126/74 03/27/16 14:43 O2 Sat by Pulse Oximetry (%) 97 03/25/16 21:00 Intake & Output 03/24/16 03/25/16 03/26/16 03/27/16 23:59 23:59 23:59 23:59 Intake Total 1400 1150 1400 1000 Balance 1400 1150 1400 1000 Weight 128 lb 8 oz Gen: Lethargic CVS: RRR Lungs: CTA Abd Soft NT/ND Ext: 1+ upper ext edema CBC, BMP 03/25/16 05:35 03/27/16 06:00 Current Medications Acetaminophen (Tylenol -) 650 mg PO Q6H PRN PRN Reason: FEVER OR PAIN Ascorbic Acid (Vitamin C -) 500 mg PO DAILY [facility] Last Admin: 03/27/16 10:55 Dose: 500 mg Clopidogrel Bisulfate (Plavix -) 75 mg PO DAILY [facility] Last Admin: 03/27/16 10:54 Dose: 75 mg Collagenase (Santyl -) 1 applic TP DAILY [facility] Last Admin: 03/27/16 10:54 Dose: 1 applic Docusate Sodium (Colace -) 200 mg PO HS [facility] Last Admin: 03/26/16 22:12 Dose: 200 mg Donepezil HCl (Aricept -) 10 mg PO DAILY [facility] Last Admin: 03/27/16 10:47 Dose: 10 mg Heparin Sodium (Porcine) (Heparin -) 5,000 unit SQ BID [facility] Last Admin: 03/27/16 10:48 Dose: 5,000 unit Potassium Chloride 40 meq/ (Dextrose) 1,020 mls @ 75 mls/hr IVPB .[id number] [facility] Memantine (Namenda -) 10 mg PO BID [facility] Last Admin: 03/27/16 10:48 Dose: 10 mg Metoprolol Succinate (Toprol Xl -) 25 mg PO DAILY [facility] Last Admin: 03/27/16 10:55 Dose: 25 mg Multivitamins/Minerals/Vitamin C (Tab-A-Vit -) 1 tab PO DAILY [facility] Last Admin: 03/27/16 10:48 Dose: 1 tab Oxycodone HCl (Roxicodone -) 5 mg PO Q6H PRN PRN Reason: PAIN Last Admin: 03/25/16 12:54 Dose: 5 mg Pantoprazole Sodium (Protonix -) 40 mg PO DAILY [facility] Last Admin: 03/27/16 10:54 Dose: 40 mg Rosuvastatin Calcium (Crestor -) 10 mg PO HS [facility] Last Admin: 03/26/16 22:12 Dose: 10 mg A/P 86 year old woman with PMhx of CKD, CVA, COPD, CHF, Dementia, DM,. GERD, Hypertension presented with hypernatremia and abnormal renal function. #Hypernatremia in setting of CKD change IVF to D5W with 40KCL at 75cc per hour Check BMP in AM dehydration will become a recurrent problem as pt does not have any oral intake #Hypokalemia Continue KCL in IVF prognosis guarded Thank you Miguel High DO
[2016-03-27] MEDS ORDERED: DEXTROSE 5%-WATER - 1,000 ML with POTASSIUM CHLORIDE 40 MEQ IVPB SCH (15:00)
[2016-03-27] MEDS: DEXTROSE 5%-WATER - 1,000 ML with POTASSIUM CHLORIDE 40 MEQ IV SCH (20:06)
[2016-03-27] MEDS: ROSUVASTATIN CA 10 MG TABLET (FP) PO SCH (21:30)
[2016-03-27] MEDS: DOCUSATE SODIUM 100 MG CAPSULE (FP) PO SCH (21:30)
[2016-03-28 07:37] LABS: BASOPHIL 0.5 % (0-2.0); EOSINOPHIL 1.7 % (0-4.5); MCHC 32.1 g/dl (32.0-36.0); MEAN CELL VOLUME 93.7 fl (80-96); MEAN PLT VOLUME 9.2 fl (7.5-11.1); NEUTROPHILS 69.2 % (42.8-82.8); PLATELET COUNT 145 K/MM3 (134-434); RDW 16.2 % (11.6-15.6); WHITE BLOOD COUNT 5.5 K/mm3 (4.0-10.0)
[2016-03-28 07:52] LABS: CALCIUM 8.1 mg/dL (8.5-10.1)
[2016-03-28 07:53] LABS: CREATININE 1.4 mg/dL (0.55-1.02)
[2016-03-28] MEDS: PANTOPRAZOLE 40 MG TABLET (FP) PO SCH (10:22)
[2016-03-28] MEDS: CLOPIDOGREL BISULFATE 75 MG TABLET (FP) PO SCH (10:22)
[2016-03-28] MEDS: MULTIVITAMINS (DAILY MVI) TABLET (FP) PO SCH (10:22)
[2016-03-28] MEDS: MEMANTINE HCL 10 MG TABLET (FP) PO SCH ×2 (10:22→23:00)
[2016-03-28] MEDS: DONEPEZIL HCL 10 MG TABLET (FP) PO SCH (10:22)
[2016-03-28] MEDS: ASCORBIC ACID 500 MG TABLET (FP) PO SCH (10:22)
[2016-03-28] MEDS: HEPARIN NA (PORCINE) 5,000 UNITS/ML 1ML VIAL SQ SCH ×2 (10:22→23:00)
[2016-03-28] MEDS: METOPROLOL SUCCINATE 25 MG TAB.SR.24H (FP) PO SCH (10:22)
[2016-03-28] MEDS: POTASSIUM CHLORIDE IVPB SCH (10:46)
[2016-03-28] MEDS: DEXTROSE IVPB SCH (10:46)
[2016-03-28] MEDS: DEXTROSE 5%-WATER - 1,000 ML with POTASSIUM CHLORIDE 40 MEQ IV SCH (10:46)
[2016-03-28] MEDS: [UNRECOGNIZED DRUG - OTHER] IVPB SCH (10:46)
[2016-03-28] MEDS ORDERED: HEPARIN NA (PORCINE) 5,000 UNITS/ML 1ML VIAL ONE (11:46)
--- NOTE | 2016-03-28 13:19 | PN ---
Progress Note, Physician Chief Complaint: to go for angiogram today NPO labwork is better - Current Medication List Current Medications: Active Medications Acetaminophen (Tylenol -) 650 mg PO Q6H PRN PRN Reason: FEVER OR PAIN Ascorbic Acid (Vitamin C -) 500 mg PO DAILY [facility] Last Admin: 03/28/16 10:22 Dose: 500 mg Clopidogrel Bisulfate (Plavix -) 75 mg PO DAILY [facility] Last Admin: 03/28/16 10:22 Dose: Not Given Collagenase (Santyl -) 1 applic TP DAILY [facility] Last Admin: 03/27/16 10:54 Dose: 1 applic Docusate Sodium (Colace -) 200 mg PO HS [facility] Last Admin: 03/27/16 21:30 Dose: 200 mg Donepezil HCl (Aricept -) 10 mg PO DAILY [facility] Last Admin: 03/28/16 10:22 Dose: 10 mg Heparin Sodium (Porcine) (Heparin -) 5,000 unit SQ BID [facility] Last Admin: 03/28/16 10:22 Dose: Not Given Potassium Chloride 40 meq/ (Dextrose) 1,020 mls @ 75 mls/hr IV Q13H [facility] Last Admin: 03/28/16 10:46 Dose: 75 mls/hr Memantine (Namenda -) 10 mg PO BID [facility] Last Admin: 03/28/16 10:22 Dose: 10 mg Metoprolol Succinate (Toprol Xl -) 25 mg PO DAILY [facility] Last Admin: 03/28/16 10:22 Dose: 25 mg Multivitamins/Minerals/Vitamin C (Tab-A-Vit -) 1 tab PO DAILY [facility] Last Admin: 03/28/16 10:22 Dose: 1 tab Oxycodone HCl (Roxicodone -) 5 mg PO Q6H PRN PRN Reason: PAIN Last Admin: 03/25/16 12:54 Dose: 5 mg Pantoprazole Sodium (Protonix -) 40 mg PO DAILY [facility] Last Admin: 03/28/16 10:22 Dose: 40 mg Rosuvastatin Calcium (Crestor -) 10 mg PO HS [facility] Last Admin: 03/27/16 21:30 Dose: 10 mg - Objective Vital Signs: Vital Signs Temperature 98.2 F 03/28/16 06:00 Pulse Rate 61 03/28/16 06:00 Respiratory Rate 20 03/28/16 06:00 Blood Pressure 112/58 03/28/16 06:00 O2 Sat by Pulse Oximetry (%) 96 03/27/16 19:48 Constitutional: Yes: Calm, Thin Cardiovascular: Yes: S1, S2 Respiratory: Yes: CTA Bilaterally Gastrointestinal: Yes: Normal Bowel Sounds, Soft Neurological: Yes: Other (not talking) Labs: CBC, BMP 03/28/16 06:15 03/28/16 06:15 Problem List - Problems (1) Dehydration Assessment/Plan: improving with ivf son says no feeding tube Code(s): E86.0 - DEHYDRATION (2) Dementia Assessment/Plan: nameda and aricept Code(s): F03.90 - UNSPECIFIED DEMENTIA WITHOUT BEHAVIORAL DISTURBANCE (3) Foot ulcer Assessment/Plan: being followed by dr aranda to get angiogram today Code(s): L97.509 - NON-PRESSURE CHRONIC ULCER OTH PRT UNSP FOOT W UNSP SEVERITY Qualifiers: Laterality: left (4) Hypernatremia Assessment/Plan: improving slolwly with IVF- now normal Code(s): E87.0 - HYPEROSMOLALITY AND HYPERNATREMIA (5) CAD (coronary artery disease) Assessment/Plan: metorprolol and plavix will monitor h/h if less 8 then chloe tranfuse Code(s): I25.10 - ATHSCL HEART DISEASE OF [place] CORONARY ARTERY W/O ANG PCTRS Assessment/Plan patient medically cleared for angiogram to continue to take metoprolol
--- NOTE | 2016-03-28 16:13 | PN ---
Progress Note (short form) - Note Progress Note: Renal Follow up for TROY and Hypernatermia Pt seen and examined at the bedside no complaints Vital Signs Temperature 97.5 F L 03/28/16 14:00 Pulse Rate 54 L 03/28/16 14:00 Respiratory Rate 20 03/28/16 14:00 Blood Pressure 118/49 03/28/16 14:00 O2 Sat by Pulse Oximetry (%) 100 03/28/16 09:00 Intake & Output 03/25/16 03/26/16 03/27/16 03/28/16 23:59 23:59 23:59 23:59 Intake Total 1150 1400 1150 800 Balance 1150 1400 1150 800 Weight 128 lb 8 oz Gen: Lethargic CVS: RRR Lungs: CTA Abd Soft NT/ND Ext: 1+ upper ext edema CBC, BMP 03/28/16 06:15 03/28/16 06:15 Current Medications Acetaminophen (Tylenol -) 650 mg PO Q6H PRN PRN Reason: FEVER OR PAIN Ascorbic Acid (Vitamin C -) 500 mg PO DAILY [facility] Last Admin: 03/28/16 10:22 Dose: 500 mg Clopidogrel Bisulfate (Plavix -) 75 mg PO DAILY [facility] Last Admin: 03/28/16 10:22 Dose: Not Given Collagenase (Santyl -) 1 applic TP DAILY [facility] Last Admin: 03/27/16 10:54 Dose: 1 applic Docusate Sodium (Colace -) 200 mg PO HS [facility] Last Admin: 03/27/16 21:30 Dose: 200 mg Donepezil HCl (Aricept -) 10 mg PO DAILY [facility] Last Admin: 03/28/16 10:22 Dose: 10 mg Heparin Sodium (Porcine) (Heparin -) 5,000 unit SQ BID [facility] Last Admin: 03/28/16 10:22 Dose: Not Given Potassium Chloride/Dextrose/Sod Cl (D5-1/2ns+30 Meq Kcl -) 1,000 mls @ 42 mls/ hr IV ASDIR [facility] Memantine (Namenda -) 10 mg PO BID [facility] Last Admin: 03/28/16 10:22 Dose: 10 mg Metoprolol Succinate (Toprol Xl -) 25 mg PO DAILY [facility] Last Admin: 03/28/16 10:22 Dose: 25 mg Multivitamins/Minerals/Vitamin C (Tab-A-Vit -) 1 tab PO DAILY [facility] Last Admin: 01/13/17 10:22 Dose: 1 tab Oxycodone HCl (Roxicodone -) 5 mg PO Q6H PRN PRN Reason: PAIN Last Admin: 03/25/16 12:54 Dose: 5 mg Pantoprazole Sodium (Protonix -) 40 mg PO DAILY [facility] Last Admin: 03/28/16 10:22 Dose: 40 mg Rosuvastatin Calcium (Crestor -) 10 mg PO HS [facility] Last Admin: 03/27/16 21:30 Dose: 10 mg A/P 86 year old woman with PMhx of CKD, CVA, COPD, CHF, Dementia, DM,. GERD, Hypertension presented with hypernatremia and abnormal renal function. #Hypernatremia in setting of CKD serum Na now within normal limits pt is not taking in any oral intake including water change IVF to 1/2 NS with 30kcl at 42cc per hour for maintenance prognosis guarded Thank you Miguel High DO
--- NOTE | 2016-03-28 17:07 | PN ---
Progress Note (short form) - Note Progress Note: Vascular surgery Pt seen and examined. Could not obtain surgical and anesthesia consent today for operation. Will do angiogram on . Son knows the surgery is on thursday. Please optimize, Creatinine coming down. Poncho Gallardo DO
[2016-03-28] MEDS: D5-1/2NS+30 MEQ KCL - 1,000 ML IV SCH (19:01)
[2016-03-28] MEDS: COLLAGENASE CLOSTRIDIUM HIST. 30 GRAMS TUBE TP SCH (19:05)
[2016-03-28 21:32] LABS: INR 1.22 (0.82-1.09); PROTHROMBIN TIME (PATIENT) 13.5 SEC (9.98-11.88)
[2016-03-28] MEDS: DOCUSATE SODIUM 100 MG CAPSULE (FP) PO SCH (23:00)
[2016-03-28] MEDS: ROSUVASTATIN CA 10 MG TABLET (FP) PO SCH (23:01)
[2016-03-29 08:00] LABS: BASOPHIL 0.6 % (0-2.0); EOSINOPHIL 2.1 % (0-4.5); MCH 30.3 pg (25.7-33.7); MCHC 32.7 g/dl (32.0-36.0); MEAN CELL VOLUME 92.6 fl (80-96); MEAN PLT VOLUME 9.2 fl (7.5-11.1); NEUTROPHILS 67.4 % (42.8-82.8); PLATELET COUNT 146 K/MM3 (134-434); RDW 15.7 % (11.6-15.6); WHITE BLOOD COUNT 4.9 K/mm3 (4.0-10.0)
--- NOTE | 2016-03-29 09:42 | PN ---
Progress Note (short form) - Note Progress Note: Patient booked for LLE CO2 angio on 04/01/16. Please medically optimize/clear patient for above procedure.
--- NOTE | 2016-03-29 10:18 | PN ---
Progress Note, Physician - Current Medication List Current Medications: Active Medications Acetaminophen (Tylenol -) 650 mg PO Q6H PRN PRN Reason: FEVER OR PAIN Ascorbic Acid (Vitamin C -) 500 mg PO DAILY [facility] Last Admin: 03/28/16 10:22 Dose: 500 mg Clopidogrel Bisulfate (Plavix -) 75 mg PO DAILY [facility] Last Admin: 03/28/16 10:22 Dose: Not Given Collagenase (Santyl -) 1 applic TP DAILY [facility] Last Admin: 03/28/16 19:05 Dose: 1 applic Docusate Sodium (Colace -) 200 mg PO HS [facility] Last Admin: 03/28/16 23:00 Dose: 200 mg Donepezil HCl (Aricept -) 10 mg PO DAILY [facility] Last Admin: 03/28/16 10:22 Dose: 10 mg Heparin Sodium (Porcine) (Heparin -) 5,000 unit SQ BID [facility] Last Admin: 03/28/16 23:00 Dose: 5,000 unit Potassium Chloride/Dextrose/Sod Cl (D5-1/2ns+30 Meq Kcl -) 1,000 mls @ 42 mls/ hr IV ASDIR [facility] Last Admin: 03/28/16 19:01 Dose: 42 mls/hr Memantine (Namenda -) 10 mg PO BID [facility] Last Admin: 03/28/16 23:00 Dose: 10 mg Metoprolol Succinate (Toprol Xl -) 25 mg PO DAILY [facility] Last Admin: 03/28/16 10:22 Dose: 25 mg Multivitamins/Minerals/Vitamin C (Tab-A-Vit -) 1 tab PO DAILY [facility] Last Admin: 03/28/16 10:22 Dose: 1 tab Oxycodone HCl (Roxicodone -) 5 mg PO Q6H PRN PRN Reason: PAIN Last Admin: 03/25/16 12:54 Dose: 5 mg Pantoprazole Sodium (Protonix -) 40 mg PO DAILY [facility] Last Admin: 03/28/16 10:22 Dose: 40 mg Rosuvastatin Calcium (Crestor -) 10 mg PO HS [facility] Last Admin: 03/28/16 23:01 Dose: 10 mg - Objective Vital Signs: Vital Signs Temperature 97.8 F 03/29/16 07:16 Pulse Rate 58 L 03/29/16 07:16 Respiratory Rate 20 03/29/16 07:16 Blood Pressure 151/63 03/29/16 07:16 O2 Sat by Pulse Oximetry (%) 99 03/28/16 21:00 Cardiovascular: Yes: Regular Rate and Rhythm Respiratory: Yes: Regular, CTA Bilaterally Labs: CBC, BMP 03/29/16 06:00 INR, PTT INR 1.22 (0.82-1.09) H 03/28/16 20:05 Assessment/Plan (1) Dehydration Code(s): E86.0 - DEHYDRATION RENAL CONSULT APPRECIATED NA IMPROVING ON IVF CXR (2) Dementia Code(s): F03.90 - UNSPECIFIED DEMENTIA WITHOUT BEHAVIORAL DISTURBANCE (3) Hypernatremia Code(s): E87.0 - HYPEROSMOLALITY AND HYPERNATREMIA (4) Hypokalemia Code(s): E87.6 - HYPOKALEMIA RESOLVED (5) Renal failure (ARF), acute on chronic Code(s): N17.9 - ACUTE KIDNEY FAILURE, UNSPECIFIED N18.9 - CHRONIC KIDNEY DISEASE, UNSPECIFIED SEE #1 (6) COPD (chronic obstructive pulmonary disease) Code(s): J44.9 - CHRONIC OBSTRUCTIVE PULMONARY DISEASE, UNSPECIFIED CXr -> INFILTRATE WBC NEG NO FEVER ID & PULM CONSULTS APPRECIATED OBSERVE OFF ABx (7) CHF (congestive heart failure) Code(s): I50.9 - HEART FAILURE, UNSPECIFIED BNP INCed CARDIO CONSULT APPRECIATED NO CHF POOR PROGNOSIS/DNR & DNI SUGGESTED -> PALLIATIVE (8) HTN (hypertension) Code(s): I10 - ESSENTIAL (PRIMARY) HYPERTENSION
[2016-03-29 10:41] LABS: ALBUMIN 1.6 g/dl (3.4-5.0); BILIRUBIN,TOTAL 0.7 mg/dL (0.2-1.0); CALCIUM 8.3 mg/dL (8.5-10.1); CREATININE 1.4 mg/dL (0.55-1.02); TOT PROT 4.5 g/dl (6.4-8.2)
[2016-03-29] MEDS: DONEPEZIL HCL 10 MG TABLET (FP) PO SCH (10:41)
[2016-03-29] MEDS: METOPROLOL SUCCINATE 25 MG TAB.SR.24H (FP) PO SCH (10:42)
[2016-03-29] MEDS: MULTIVITAMINS (DAILY MVI) TABLET (FP) PO SCH (10:42)
[2016-03-29] MEDS: MEMANTINE HCL 10 MG TABLET (FP) PO SCH ×2 (10:42→23:32)
[2016-03-29] MEDS: HEPARIN NA (PORCINE) 5,000 UNITS/ML 1ML VIAL SQ SCH ×2 (10:42→23:32)
[2016-03-29] MEDS: CLOPIDOGREL BISULFATE 75 MG TABLET (FP) PO SCH (10:42)
[2016-03-29] MEDS: ASCORBIC ACID 500 MG TABLET (FP) PO SCH (10:42)
[2016-03-29] MEDS: PANTOPRAZOLE 40 MG TABLET (FP) PO SCH (10:42)
[2016-03-29] MEDS: COLLAGENASE CLOSTRIDIUM HIST. 30 GRAMS TUBE TP SCH (10:45)
--- NOTE | 2016-03-29 11:46 | PN ---
Progress Note (short form) - Note Progress Note: Renal Follow up for TROY and Hypernatermia Pt seen and examined at the bedside non-verbal no overnight events on IVF Vital Signs Temperature 97.8 F 03/29/16 07:16 Pulse Rate 58 L 03/29/16 07:16 Respiratory Rate 20 03/29/16 07:16 Blood Pressure 151/63 03/29/16 07:16 O2 Sat by Pulse Oximetry (%) 99 03/28/16 21:00 Intake & Output 03/26/16 03/27/16 03/28/16 03/29/16 23:59 23:59 23:59 23:59 Intake Total 1400 1150 800 460 Balance 1400 1150 800 460 Weight 128 lb 8 oz Gen: Lethargic CVS: RRR Lungs: CTA Abd Soft NT/ND Ext: 1+ upper ext edema CBC, BMP 03/29/16 06:00 03/29/16 06:00 Current Medications Acetaminophen (Tylenol -) 650 mg PO Q6H PRN PRN Reason: FEVER OR PAIN Ascorbic Acid (Vitamin C -) 500 mg PO DAILY [facility] Last Admin: 03/29/16 10:42 Dose: 500 mg Clopidogrel Bisulfate (Plavix -) 75 mg PO DAILY [facility] Last Admin: 03/29/16 10:42 Dose: 75 mg Collagenase (Santyl -) 1 applic TP DAILY [facility] Last Admin: 03/29/16 10:45 Dose: 1 applic Docusate Sodium (Colace -) 200 mg PO HS [facility] Last Admin: 03/28/16 23:00 Dose: 200 mg Donepezil HCl (Aricept -) 10 mg PO DAILY [facility] Last Admin: 03/29/16 10:41 Dose: 10 mg Heparin Sodium (Porcine) (Heparin -) 5,000 unit SQ BID [facility] Last Admin: 03/29/16 10:42 Dose: 5,000 unit Potassium Chloride/Dextrose/Sod Cl (D5-1/2ns+30 Meq Kcl -) 1,000 mls @ 42 mls/ hr IV ASDIR [facility] Last Admin: 03/28/16 19:01 Dose: 42 mls/hr Memantine (Namenda -) 10 mg PO BID [facility] Last Admin: 03/29/16 10:42 Dose: 10 mg Metoprolol Succinate (Toprol Xl -) 25 mg PO DAILY [facility] Last Admin: 01/14/17 10:42 Dose: 25 mg Multivitamins/Minerals/Vitamin C (Tab-A-Vit -) 1 tab PO DAILY [facility] Last Admin: 03/29/16 10:42 Dose: 1 tab Oxycodone HCl (Roxicodone -) 5 mg PO Q6H PRN PRN Reason: PAIN Last Admin: 03/25/16 12:54 Dose: 5 mg Pantoprazole Sodium (Protonix -) 40 mg PO DAILY [facility] Last Admin: 03/29/16 10:42 Dose: 40 mg Rosuvastatin Calcium (Crestor -) 10 mg PO HS [facility] Last Admin: 03/28/16 23:01 Dose: 10 mg A/P 86 year old woman with PMhx of CKD, CVA, COPD, CHF, Dementia, DM,. GERD, Hypertension presented with hypernatremia and abnormal renal function. #Hypernatremia in setting of CKD Serum NA stable Cr stable continue maintenance fluids prognosis guarded Thank you Miguel High DO
--- NOTE | 2016-03-29 13:27 | PN ---
Progress Note, Physician - Current Medication List Current Medications: Active Medications Acetaminophen (Tylenol -) 650 mg PO Q6H PRN PRN Reason: FEVER OR PAIN Ascorbic Acid (Vitamin C -) 500 mg PO DAILY [facility] Last Admin: 03/29/16 10:42 Dose: 500 mg Clopidogrel Bisulfate (Plavix -) 75 mg PO DAILY [facility] Last Admin: 03/29/16 10:42 Dose: 75 mg Collagenase (Santyl -) 1 applic TP DAILY [facility] Last Admin: 03/29/16 10:45 Dose: 1 applic Docusate Sodium (Colace -) 200 mg PO HS [facility] Last Admin: 03/28/16 23:00 Dose: 200 mg Donepezil HCl (Aricept -) 10 mg PO DAILY [facility] Last Admin: 03/29/16 10:41 Dose: 10 mg Heparin Sodium (Porcine) (Heparin -) 5,000 unit SQ BID [facility] Last Admin: 03/29/16 10:42 Dose: 5,000 unit Potassium Chloride/Dextrose/Sod Cl (D5-1/2ns+30 Meq Kcl -) 1,000 mls @ 42 mls/ hr IV ASDIR [facility] Last Admin: 03/28/16 19:01 Dose: 42 mls/hr Memantine (Namenda -) 10 mg PO BID [facility] Last Admin: 03/29/16 10:42 Dose: 10 mg Metoprolol Succinate (Toprol Xl -) 25 mg PO DAILY [facility] Last Admin: 03/29/16 10:42 Dose: 25 mg Multivitamins/Minerals/Vitamin C (Tab-A-Vit -) 1 tab PO DAILY [facility] Last Admin: 03/29/16 10:42 Dose: 1 tab Oxycodone HCl (Roxicodone -) 5 mg PO Q6H PRN PRN Reason: PAIN Last Admin: 03/25/16 12:54 Dose: 5 mg Pantoprazole Sodium (Protonix -) 40 mg PO DAILY [facility] Last Admin: 03/29/16 10:42 Dose: 40 mg Rosuvastatin Calcium (Crestor -) 10 mg PO HS [facility] Last Admin: 03/28/16 23:01 Dose: 10 mg - Objective Vital Signs: Vital Signs Temperature 97.8 F 03/29/16 07:16 Pulse Rate 58 L 03/29/16 07:16 Respiratory Rate 20 03/29/16 07:16 Blood Pressure 151/63 03/29/16 07:16 O2 Sat by Pulse Oximetry (%) 99 03/28/16 21:00 Cardiovascular: Yes: Regular Rate and Rhythm Respiratory: Yes: Regular, CTA Bilaterally Gastrointestinal: Yes: Normal Bowel Sounds, Soft Labs: CBC, BMP 03/29/16 06:00 03/29/16 06:00 INR, PTT INR 1.22 (0.82-1.09) H 03/28/16 20:05 Assessment/Plan (1) Dehydration Code(s): E86.0 - DEHYDRATION RENAL CONSULT APPRECIATED NA IMPROVING ON IVF (2) Dementia Assessment/Plan: nameda and aricept Code(s): F03.90 - UNSPECIFIED DEMENTIA WITHOUT BEHAVIORAL DISTURBANCE (3) Foot ulcer Assessment/Plan: being followed by dr aranda to get angiogram today Code(s): L97.509 - NON-PRESSURE CHRONIC ULCER OTH PRT UNSP FOOT W UNSP SEVERITY Qualifiers: Laterality: left (4) CAD (coronary artery disease) Assessment/Plan: metorprolol and plavix will monitor h/h if less 8 then chloe tranfuse Code(s): I25.10 - ATHSCL HEART DISEASE OF [place] CORONARY ARTERY W/O ANG PCTRS Assessment/Plan patient medically cleared for angiogram to continue to take metoprolol
--- NOTE | 2016-03-29 13:27 | PN ---
Progress Note (short form) - Note Progress Note: PULMONARY CHART REVIEWED NO SIGNIFICANT CLINICAL CHANGE IN EXAM Abnormal CXR likely atelectasis Hypernatremia/Dehydration Advanced Dementia COPD LV Systolic Dysfunction Failure to Thrive - monitor off antibiotics - IVF, replace free water - replete lytes - aspiration precautions - inhaled bronchodilators as needed - continue discussions regarding goals of care, recommend palliative care - DVT prophylaxis Jimena ARNDT MD
[2016-03-29] MEDS: DOCUSATE SODIUM 100 MG CAPSULE (FP) PO SCH (23:13)
[2016-03-29] MEDS: D5-1/2NS+30 MEQ KCL - 1,000 ML IV SCH (23:30)
[2016-03-29] MEDS: ROSUVASTATIN CA 10 MG TABLET (FP) PO SCH (23:32)
[2016-03-30] MEDS: HEPARIN NA (PORCINE) 5,000 UNITS/ML 1ML VIAL SQ SCH ×2 (10:00→22:43)
--- NOTE | 2016-03-30 12:34 | PN ---
Progress Note, Physician - Current Medication List Current Medications: Active Medications Acetaminophen (Tylenol -) 650 mg PO Q6H PRN PRN Reason: FEVER OR PAIN Ascorbic Acid (Vitamin C -) 500 mg PO DAILY [facility] Last Admin: 03/29/16 10:42 Dose: 500 mg Clopidogrel Bisulfate (Plavix -) 75 mg PO DAILY [facility] Last Admin: 03/29/16 10:42 Dose: 75 mg Collagenase (Santyl -) 1 applic TP DAILY [facility] Last Admin: 03/29/16 10:45 Dose: 1 applic Docusate Sodium (Colace -) 200 mg PO HS [facility] Last Admin: 03/29/16 23:13 Dose: Not Given Donepezil HCl (Aricept -) 10 mg PO DAILY [facility] Last Admin: 03/29/16 10:41 Dose: 10 mg Heparin Sodium (Porcine) (Heparin -) 5,000 unit SQ BID [facility] Last Admin: 03/29/16 23:32 Dose: 5,000 unit Potassium Chloride/Dextrose/Sod Cl (D5-1/2ns+30 Meq Kcl -) 1,000 mls @ 42 mls/ hr IV ASDIR [facility] Last Admin: 03/29/16 23:30 Dose: 42 mls/hr Memantine (Namenda -) 10 mg PO BID [facility] Last Admin: 03/29/16 23:32 Dose: Not Given Metoprolol Succinate (Toprol Xl -) 25 mg PO DAILY [facility] Last Admin: 03/29/16 10:42 Dose: 25 mg Multivitamins/Minerals/Vitamin C (Tab-A-Vit -) 1 tab PO DAILY [facility] Last Admin: 03/29/16 10:42 Dose: 1 tab Oxycodone HCl (Roxicodone -) 5 mg PO Q6H PRN PRN Reason: PAIN Last Admin: 03/25/16 12:54 Dose: 5 mg Pantoprazole Sodium (Protonix -) 40 mg PO DAILY [facility] Last Admin: 03/29/16 10:42 Dose: 40 mg Rosuvastatin Calcium (Crestor -) 10 mg PO HS [facility] Last Admin: 03/29/16 23:32 Dose: Not Given - Objective Vital Signs: Vital Signs Temperature 98.7 F 03/30/16 06:00 Pulse Rate 63 03/30/16 06:00 Respiratory Rate 20 03/30/16 06:00 Blood Pressure 140/49 03/30/16 06:00 O2 Sat by Pulse Oximetry (%) 100 03/29/16 21:00 Cardiovascular: Yes: S1, S2 Respiratory: Yes: Regular, CTA Bilaterally Gastrointestinal: Yes: Normal Bowel Sounds, Soft Labs: CBC, BMP 03/29/16 06:00 03/29/16 06:00 INR, PTT INR 1.22 (0.82-1.09) H 03/28/16 20:05 Assessment/Plan (1) Dehydration Code(s): E86.0 - DEHYDRATION RENAL CONSULT APPRECIATED NA IMPROVING ON IVF (2) Dementia Assessment/Plan: nameda and aricept Code(s): F03.90 - UNSPECIFIED DEMENTIA WITHOUT BEHAVIORAL DISTURBANCE (3) Foot ulcer Assessment/Plan: being followed by dr aranda to get angiogram today Code(s): L97.509 - NON-PRESSURE CHRONIC ULCER OTH PRT UNSP FOOT W UNSP SEVERITY Qualifiers: Laterality: left (4) CAD (coronary artery disease) Assessment/Plan: metorprolol and plavix will monitor h/h if less 8 then chloe tranfuse Code(s): I25.10 - ATHSCL HEART DISEASE OF [place] CORONARY ARTERY W/O ANG PCTRS Assessment/Plan patient medically cleared for angiogram to continue to take metoprolol
[2016-03-30] MEDS: DONEPEZIL HCL 10 MG TABLET (FP) PO SCH (17:21)
[2016-03-30] MEDS: COLLAGENASE CLOSTRIDIUM HIST. 30 GRAMS TUBE TP SCH (17:22)
[2016-03-30] MEDS: CLOPIDOGREL BISULFATE 75 MG TABLET (FP) PO SCH (17:22)
[2016-03-30] MEDS: MEMANTINE HCL 10 MG TABLET (FP) PO SCH ×2 (17:22→22:48)
[2016-03-30] MEDS: METOPROLOL SUCCINATE 25 MG TAB.SR.24H (FP) PO SCH (17:22)
[2016-03-30] MEDS: PANTOPRAZOLE 40 MG TABLET (FP) PO SCH (17:22)
[2016-03-30] MEDS: MULTIVITAMINS (DAILY MVI) TABLET (FP) PO SCH (17:22)
[2016-03-30] MEDS: D5-1/2NS+30 MEQ KCL - 1,000 ML IV SCH ×2 (17:22→23:24)
[2016-03-30] MEDS: ASCORBIC ACID 500 MG TABLET (FP) PO SCH (17:22)
[2016-03-30] MEDS: ROSUVASTATIN CA 10 MG TABLET (FP) PO SCH (22:48)
[2016-03-30] MEDS: DOCUSATE SODIUM 100 MG CAPSULE (FP) PO SCH (22:48)
[2016-03-31 08:33] LABS: CALCIUM 8.8 mg/dL (8.5-10.1); CREATININE 1.4 mg/dL (0.55-1.02); MAGNESIUM 1.5 mg/dL (1.8-2.4); PHOSPHOROUS 2.5 mg/dL (2.5-4.9)
--- NOTE | 2016-03-31 09:13 | PN ---
Progress Note (short form) - Note Progress Note: Vascular surgery For left lower ext co2 angiogram, angioplasty shari morning at 9am. NPO past midnight. Poncho Gallardo DO
[2016-03-31] MEDS: DONEPEZIL HCL 10 MG TABLET (FP) PO SCH (10:28)
[2016-03-31] MEDS: HEPARIN NA (PORCINE) 5,000 UNITS/ML 1ML VIAL SQ SCH ×2 (10:33→22:49)
--- NOTE | 2016-03-31 11:01 | PN ---
Progress Note (short form) - Note Progress Note: Renal Follow up for TROY and Hypernatermia Pt seen and examined at the bedside son present no oral intake for angiogram tomorrow Vital Signs Temperature 98.9 F 03/30/16 17:53 Pulse Rate 65 03/30/16 17:53 Respiratory Rate 20 03/30/16 21:00 Blood Pressure 147/59 03/30/16 17:53 O2 Sat by Pulse Oximetry (%) 100 03/30/16 21:00 Intake & Output 03/28/16 03/29/16 03/30/16 03/31/16 23:59 23:59 23:59 23:59 Intake Total 800 964 460 210 Balance 800 964 460 210 Gen: Lethargic CVS: RRR Lungs: CTA Abd Soft NT/ND Ext: 1+ upper ext edema CBC, BMP 03/29/16 06:00 03/31/16 07:55 Current Medications Acetaminophen (Tylenol -) 650 mg PO Q6H PRN PRN Reason: FEVER OR PAIN Ascorbic Acid (Vitamin C -) 500 mg PO DAILY [facility] Last Admin: 03/30/16 17:22 Dose: 500 mg Clopidogrel Bisulfate (Plavix -) 75 mg PO DAILY [facility] Last Admin: 03/30/16 17:22 Dose: 75 mg Collagenase (Santyl -) 1 applic TP DAILY [facility] Last Admin: 03/30/16 17:22 Dose: 1 applic Docusate Sodium (Colace -) 200 mg PO HS [facility] Last Admin: 03/30/16 22:48 Dose: Not Given Donepezil HCl (Aricept -) 10 mg PO DAILY [facility] Last Admin: 03/31/16 10:28 Dose: Not Given Heparin Sodium (Porcine) (Heparin -) 5,000 unit SQ BID [facility] Last Admin: 03/31/16 10:33 Dose: Not Given Potassium Chloride/Dextrose/Sod Cl (D5-1/2ns+30 Meq Kcl -) 1,000 mls @ 42 mls/ hr IV ASDIR [facility] Last Admin: 03/30/16 23:24 Dose: 42 mls/hr Memantine (Namenda -) 10 mg PO BID [facility] Last Admin: 03/30/16 22:48 Dose: Not Given Metoprolol Succinate (Toprol Xl -) 25 mg PO DAILY [facility] Last Admin: 03/30/16 17:22 Dose: 25 mg Multivitamins/Minerals/Vitamin C (Tab-A-Vit -) 1 tab PO DAILY [facility] Last Admin: 03/30/16 17:22 Dose: 1 tab Oxycodone HCl (Roxicodone -) 5 mg PO Q6H PRN PRN Reason: PAIN Last Admin: 03/25/16 12:54 Dose: 5 mg Pantoprazole Sodium (Protonix -) 40 mg PO DAILY [facility] Last Admin: 03/30/16 17:22 Dose: 40 mg Rosuvastatin Calcium (Crestor -) 10 mg PO HS [facility] Last Admin: 03/30/16 22:48 Dose: Not Given A/P 86 year old woman with PMhx of CKD, CVA, COPD, CHF, Dementia, DM,. GERD, Hypertension presented with hypernatremia and abnormal renal function. #Hypernatremia in setting of CKD Serum Na uptrending increase hypotonic IVF to 75cc per hour trend Na daily pt does not take in any fluids or solute by mouth Thank you Miguel High DO
--- NOTE | 2016-03-31 11:02 | PN ---
Progress Note (short form) - Note Progress Note: NAD on NC O2. No acute events overnight. Intake & Output 03/28/16 03/29/16 03/30/16 03/31/16 23:59 23:59 23:59 23:59 Intake Total 800 964 460 210 Balance 800 964 460 210 Last Vital Signs Temp Pulse Resp BP Pulse Ox 98.9 F 65 20 147/59 100 03/30/16 17:53 03/30/16 17:53 03/30/16 21:00 03/30/16 17:53 03/30/16 21:00 Active Medications Acetaminophen (Tylenol -) 650 mg PO Q6H PRN PRN Reason: FEVER OR PAIN Ascorbic Acid (Vitamin C -) 500 mg PO DAILY [facility] Last Admin: 03/30/16 17:22 Dose: 500 mg Clopidogrel Bisulfate (Plavix -) 75 mg PO DAILY [facility] Last Admin: 03/30/16 17:22 Dose: 75 mg Collagenase (Santyl -) 1 applic TP DAILY [facility] Last Admin: 03/30/16 17:22 Dose: 1 applic Docusate Sodium (Colace -) 200 mg PO HS [facility] Last Admin: 03/30/16 22:48 Dose: Not Given Donepezil HCl (Aricept -) 10 mg PO DAILY [facility] Last Admin: 03/31/16 10:28 Dose: Not Given Heparin Sodium (Porcine) (Heparin -) 5,000 unit SQ BID [facility] Last Admin: 03/31/16 10:33 Dose: Not Given Potassium Chloride/Dextrose/Sod Cl (D5-1/2ns+30 Meq Kcl -) 1,000 mls @ 75 mls/ hr IV ASDIR [facility] Memantine (Namenda -) 10 mg PO BID [facility] Last Admin: 03/30/16 22:48 Dose: Not Given Metoprolol Succinate (Toprol Xl -) 25 mg PO DAILY [facility] Last Admin: 03/30/16 17:22 Dose: 25 mg Multivitamins/Minerals/Vitamin C (Tab-A-Vit -) 1 tab PO DAILY [facility] Last Admin: 03/30/16 17:22 Dose: 1 tab Oxycodone HCl (Roxicodone -) 5 mg PO Q6H PRN PRN Reason: PAIN Last Admin: 03/25/16 12:54 Dose: 5 mg Pantoprazole Sodium (Protonix -) 40 mg PO DAILY [facility] Last Admin: 03/30/16 17:22 Dose: 40 mg Rosuvastatin Calcium (Crestor -) 10 mg PO HS [facility] Last Admin: 03/30/16 22:48 Dose: Not Given General: NAD Cardiovascular: Yes: S1, S2 Respiratory: Yes: Clear Gastrointestinal: Yes: Normal Bowel Sounds, Soft Labs: Laboratory Results - last 24 hr 03/30/16 03/30/16 03/31/16 12:23 17:40 07:55 Sodium 149 H Potassium 4.1 Chloride 115 H Carbon Dioxide 24 Anion Gap 10 BUN 11 Creatinine 1.4 H POC Glucometer 94 88 Random Glucose 67 L Calcium 8.8 Phosphorus 2.5 D Magnesium 1.5 L Assessment/Plan (1) Dehydration Code(s): E86.0 - DEHYDRATION (2) Dementia Assessment/Plan: Code(s): F03.90 - UNSPECIFIED DEMENTIA WITHOUT BEHAVIORAL DISTURBANCE (3) Foot ulcer Assessment/Plan: Code(s): L97.509 - NON-PRESSURE CHRONIC ULCER OTH PRT UNSP FOOT W UNSP SEVERITY Qualifiers: Laterality: left (4) CAD (coronary artery disease) Assessment/Plan: Code(s): I25.10 - ATHSCL HEART DISEASE OF [place] CORONARY ARTERY W/O ANG PCTRS Assessment/Plan O2 as needed Aspiration precautions No Pulmonary contraindication for OR/Anesthesia IVF Dr Mackay
--- NOTE | 2016-03-31 11:16 | PN ---
Progress Note, Physician Chief Complaint: going for angiogram and angioplasty in AM not taking much by mouth son doesnot want PEG - Current Medication List Current Medications: Active Medications Acetaminophen (Tylenol -) 650 mg PO Q6H PRN PRN Reason: FEVER OR PAIN Ascorbic Acid (Vitamin C -) 500 mg PO DAILY [facility] Last Admin: 03/30/16 17:22 Dose: 500 mg Clopidogrel Bisulfate (Plavix -) 75 mg PO DAILY [facility] Last Admin: 03/30/16 17:22 Dose: 75 mg Collagenase (Santyl -) 1 applic TP DAILY [facility] Last Admin: 03/30/16 17:22 Dose: 1 applic Docusate Sodium (Colace -) 200 mg PO HS [facility] Last Admin: 03/30/16 22:48 Dose: Not Given Donepezil HCl (Aricept -) 10 mg PO DAILY [facility] Last Admin: 03/31/16 10:28 Dose: Not Given Heparin Sodium (Porcine) (Heparin -) 5,000 unit SQ BID [facility] Last Admin: 03/31/16 10:33 Dose: Not Given Potassium Chloride/Dextrose/Sod Cl (D5-1/2ns+30 Meq Kcl -) 1,000 mls @ 75 mls/ hr IV ASDIR [facility] Memantine (Namenda -) 10 mg PO BID [facility] Last Admin: 03/30/16 22:48 Dose: Not Given Metoprolol Succinate (Toprol Xl -) 25 mg PO DAILY [facility] Last Admin: 03/30/16 17:22 Dose: 25 mg Multivitamins/Minerals/Vitamin C (Tab-A-Vit -) 1 tab PO DAILY [facility] Last Admin: 03/30/16 17:22 Dose: 1 tab Oxycodone HCl (Roxicodone -) 5 mg PO Q6H PRN PRN Reason: PAIN Last Admin: 03/25/16 12:54 Dose: 5 mg Pantoprazole Sodium (Protonix -) 40 mg PO DAILY [facility] Last Admin: 03/30/16 17:22 Dose: 40 mg Rosuvastatin Calcium (Crestor -) 10 mg PO HS [facility] Last Admin: 03/30/16 22:48 Dose: Not Given - Objective Vital Signs: Vital Signs Temperature 98.9 F 03/30/16 17:53 Pulse Rate 65 03/30/16 17:53 Respiratory Rate 20 03/30/16 21:00 Blood Pressure 147/59 03/30/16 17:53 O2 Sat by Pulse Oximetry (%) 100 03/31/16 09:00 Constitutional: Yes: Calm, Thin Cardiovascular: Yes: Regular Rate and Rhythm, S1, S2 Respiratory: Yes: CTA Bilaterally Gastrointestinal: Yes: Normal Bowel Sounds, Soft Edema: No Labs: CBC, BMP 03/29/16 06:00 03/31/16 07:55 INR, PTT INR 1.22 (0.82-1.09) H 03/28/16 20:05 Problem List - Problems (1) Foot ulcer Assessment/Plan: being followed by dr aranda to get angiogram in AM npo tnight Code(s): L97.509 - NON-PRESSURE CHRONIC ULCER OTH PRT UNSP FOOT W UNSP SEVERITY Qualifiers: Laterality: left (2) Dehydration Assessment/Plan: improving with ivf son says no feeding tube Code(s): E86.0 - DEHYDRATION (3) Dementia Assessment/Plan: nameda and aricept Code(s): F03.90 - UNSPECIFIED DEMENTIA WITHOUT BEHAVIORAL DISTURBANCE (4) Hypernatremia Assessment/Plan: improving slolwly with IVF- Code(s): E87.0 - HYPEROSMOLALITY AND HYPERNATREMIA (5) CAD (coronary artery disease) Assessment/Plan: metorprolol and plavix will monitor h/h if less 8 then chloe tranfuse Code(s): I25.10 - ATHSCL HEART DISEASE OF [place] CORONARY ARTERY W/O ANG PCTRS
[2016-03-31] MEDS: MEMANTINE HCL 10 MG TABLET (FP) PO SCH ×2 (14:29→22:48)
[2016-03-31] MEDS: COLLAGENASE CLOSTRIDIUM HIST. 30 GRAMS TUBE TP SCH (14:30)
[2016-03-31] MEDS: METOPROLOL SUCCINATE 25 MG TAB.SR.24H (FP) PO SCH (14:30)
[2016-03-31] MEDS: PANTOPRAZOLE 40 MG TABLET (FP) PO SCH (14:30)
[2016-03-31] MEDS: MULTIVITAMINS (DAILY MVI) TABLET (FP) PO SCH (14:30)
[2016-03-31] MEDS: CLOPIDOGREL BISULFATE 75 MG TABLET (FP) PO SCH (14:30)
[2016-03-31] MEDS: D5-1/2NS+30 MEQ KCL - 1,000 ML IV SCH (14:31)
[2016-03-31] MEDS: ASCORBIC ACID 500 MG TABLET (FP) PO SCH (14:31)
[2016-03-31] MEDS ORDERED: MAGNESIUM SULF 50% (8.12 MEQ/2 ML-1 GM VIAL) IVPB ONE (17:45)
[2016-03-31] MEDS: ROSUVASTATIN CA 10 MG TABLET (FP) PO SCH (22:47)
[2016-03-31] MEDS: DOCUSATE SODIUM 100 MG CAPSULE (FP) PO SCH (22:47)
[2016-04-01] MEDS: D5-1/2NS+30 MEQ KCL - 1,000 ML IV SCH (01:59)
[2016-04-01] MEDS ORDERED: HEPARIN NA (PORCINE) 5,000 UNITS/ML 1ML VIAL ONE ×2 (07:08→11:08)
[2016-04-01] MEDS ORDERED: LIDOCAINE HCL 1%, 10 MG/ML (20ML VIAL) ONE (07:08)
[2016-04-01 08:12] LABS: CALCIUM 8.3 mg/dL (8.5-10.1); CREATININE 1.3 mg/dL (0.55-1.02)
--- NOTE | 2016-04-01 09:46 | PN ---
Progress Note, Physician Chief Complaint: non verbal turned on one side son wants the angiogram patient not taking anything po - Current Medication List Current Medications: Active Medications Acetaminophen (Tylenol -) 650 mg PO Q6H PRN PRN Reason: FEVER OR PAIN Ascorbic Acid (Vitamin C -) 500 mg PO DAILY [facility] Last Admin: 03/31/16 14:31 Dose: Not Given Clopidogrel Bisulfate (Plavix -) 75 mg PO DAILY [facility] Last Admin: 03/31/16 14:30 Dose: Not Given Collagenase (Santyl -) 1 applic TP DAILY [facility] Last Admin: 03/31/16 14:30 Dose: 1 applic Docusate Sodium (Colace -) 200 mg PO HS [facility] Last Admin: 03/31/16 22:47 Dose: Not Given Donepezil HCl (Aricept -) 10 mg PO DAILY [facility] Last Admin: 03/31/16 10:28 Dose: Not Given Heparin Sodium (Porcine) (Heparin -) 5,000 unit SQ BID [facility] Last Admin: 03/31/16 22:49 Dose: Not Given Potassium Chloride/Dextrose/Sod Cl (D5-1/2ns+30 Meq Kcl -) 1,000 mls @ 75 mls/ hr IV ASDIR [facility] Last Admin: 04/01/16 01:59 Dose: 75 mls/hr Memantine (Namenda -) 10 mg PO BID [facility] Last Admin: 03/31/16 22:48 Dose: Not Given Metoprolol Succinate (Toprol Xl -) 25 mg PO DAILY [facility] Last Admin: 03/31/16 14:30 Dose: Not Given Multivitamins/Minerals/Vitamin C (Tab-A-Vit -) 1 tab PO DAILY [facility] Last Admin: 03/31/16 14:30 Dose: Not Given Oxycodone HCl (Roxicodone -) 5 mg PO Q6H PRN PRN Reason: PAIN Last Admin: 03/25/16 12:54 Dose: 5 mg Pantoprazole Sodium (Protonix -) 40 mg PO DAILY [facility] Last Admin: 03/31/16 14:30 Dose: Not Given Rosuvastatin Calcium (Crestor -) 10 mg PO HS [facility] Last Admin: 03/31/16 22:47 Dose: Not Given - Objective Vital Signs: Vital Signs Temperature 98.1 F 04/01/16 05:32 Pulse Rate 56 L 04/01/16 05:32 Respiratory Rate 20 04/01/16 05:32 Blood Pressure 131/56 04/01/16 05:32 O2 Sat by Pulse Oximetry (%) 100 03/31/16 21:00 Constitutional: Yes: Calm, Thin Cardiovascular: Yes: Regular Rate and Rhythm, S1, S2 Respiratory: Yes: Diminished Gastrointestinal: Yes: Normal Bowel Sounds, Soft Extremities: Yes: Other (flexed) Labs: CBC, BMP 03/29/16 06:00 04/01/16 06:00 INR, PTT INR 1.22 (0.82-1.09) H 03/28/16 20:05 Problem List - Problems (1) Foot ulcer Assessment/Plan: being followed by dr aranda to get angiogram today npo tnight cleared for angiogram ivf Code(s): L97.509 - NON-PRESSURE CHRONIC ULCER OTH PRT UNSP FOOT W UNSP SEVERITY Qualifiers: Laterality: left (2) Dehydration Assessment/Plan: improving with ivf son says no feeding tube Code(s): E86.0 - DEHYDRATION (3) Dementia Assessment/Plan: nameda and aricept Code(s): F03.90 - UNSPECIFIED DEMENTIA WITHOUT BEHAVIORAL DISTURBANCE (4) Hypernatremia Assessment/Plan: improving slolwly with IVF- 147 Code(s): E87.0 - HYPEROSMOLALITY AND HYPERNATREMIA (5) CAD (coronary artery disease) Assessment/Plan: metorprolol and plavix will monitor h/h if less 8 then chloe tranfuse Code(s): I25.10 - ATHSCL HEART DISEASE OF [place] CORONARY ARTERY W/O ANG PCTRS Assessment/Plan d/w son again about comfort care he still not ready to sign papers for that says he canot make that decision explained to him that iv fluids is temporary measure and i have explained this to son on multiple occasion before but he says he cannot sign comfort and [facility] paper and says no feeding tube and knows his mom has minimal po intake and dehyration ad hyernatremia is a reccurring problem.
[2016-04-01] MEDS ORDERED: NYSTATIN POWDER 100,000 UNITS/GM - 15 GM TOPICAL POWDER TP SCH (10:00)
--- NOTE | 2016-04-01 10:11 | PN ---
Progress Note (short form) - Note Progress Note: NAD on NC O2. No acute events overnight. Noted that the son wants angiogram despite poor overall condition/outcome. For OR. Intake & Output 03/29/16 03/30/16 03/31/16 04/01/16 23:59 23:59 23:59 23:59 Intake Total 964 460 690 525 Balance 964 460 690 525 Last Vital Signs Temp Pulse Resp BP Pulse Ox 98.1 F 56 L 20 131/56 100 04/01/16 05:32 04/01/16 05:32 04/01/16 05:32 04/01/16 05:32 03/31/16 21:00 Active Medications Acetaminophen (Tylenol -) 650 mg PO Q6H PRN PRN Reason: FEVER OR PAIN Ascorbic Acid (Vitamin C -) 500 mg PO DAILY [facility] Last Admin: 03/31/16 14:31 Dose: Not Given Clopidogrel Bisulfate (Plavix -) 75 mg PO DAILY [facility] Last Admin: 03/31/16 14:30 Dose: Not Given Collagenase (Santyl -) 1 applic TP DAILY [facility] Last Admin: 03/31/16 14:30 Dose: 1 applic Docusate Sodium (Colace -) 200 mg PO HS [facility] Last Admin: 03/31/16 22:47 Dose: Not Given Donepezil HCl (Aricept -) 10 mg PO DAILY [facility] Last Admin: 03/31/16 10:28 Dose: Not Given Heparin Sodium (Porcine) (Heparin -) 5,000 unit SQ BID [facility] Last Admin: 03/31/16 22:49 Dose: Not Given Potassium Chloride/Dextrose/Sod Cl (D5-1/2ns+30 Meq Kcl -) 1,000 mls @ 75 mls/ hr IV ASDIR [facility] Last Admin: 04/01/16 01:59 Dose: 75 mls/hr Memantine (Namenda -) 10 mg PO BID [facility] Last Admin: 03/31/16 22:48 Dose: Not Given Metoprolol Succinate (Toprol Xl -) 25 mg PO DAILY [facility] Last Admin: 03/31/16 14:30 Dose: Not Given Multivitamins/Minerals/Vitamin C (Tab-A-Vit -) 1 tab PO DAILY [facility] Last Admin: 03/31/16 14:30 Dose: Not Given Nystatin (Nystop Powder -) 1 applic TP DAILY [facility] Oxycodone HCl (Roxicodone -) 5 mg PO Q6H PRN PRN Reason: PAIN Last Admin: 03/25/16 12:54 Dose: 5 mg Pantoprazole Sodium (Protonix -) 40 mg PO DAILY [facility] Last Admin: 03/31/16 14:30 Dose: Not Given Rosuvastatin Calcium (Crestor -) 10 mg PO HS [facility] Last Admin: 03/31/16 22:47 Dose: Not Given General: NAD Cardiovascular: Yes: S1, S2 Respiratory: Yes: Clear Gastrointestinal: Yes: Normal Bowel Sounds, Soft Labs: Laboratory Results - last 24 hr 03/31/16 04/01/16 12:35 06:00 Sodium 147 H Potassium 4.2 Chloride 117 H Carbon Dioxide 25 Anion Gap 5 L BUN 9 Creatinine 1.3 H POC Glucometer 85 Random Glucose 85 D Calcium 8.3 L Assessment/Plan (1) Dehydration Code(s): E86.0 - DEHYDRATION (2) Dementia Assessment/Plan: Code(s): F03.90 - UNSPECIFIED DEMENTIA WITHOUT BEHAVIORAL DISTURBANCE (3) Foot ulcer Assessment/Plan: Code(s): L97.509 - NON-PRESSURE CHRONIC ULCER OTH PRT UNSP FOOT W UNSP SEVERITY Qualifiers: Laterality: left (4) CAD (coronary artery disease) Assessment/Plan: Code(s): I25.10 - ATHSCL HEART DISEASE OF [place] CORONARY ARTERY W/O ANG PCTRS Assessment/Plan O2 as needed Aspiration precautions No Pulmonary contraindication for OR/Anesthesia IVF Dr Mackay
[2016-04-01] MEDS ORDERED: MIDAZOLAM HCL 2 MG/2 ML SINGLE DOSE VIAL ONE ×2 (10:44→11:08)
[2016-04-01] MEDS ORDERED: ceFAZolin SODIUM 1 GM VIAL IVPB ONE (10:52)
[2016-04-01] MEDS ORDERED: LIDOCAINE HCL 1%, 10 MG/ML (50 mL VIAL) IJ ONE (10:54)
[2016-04-01] MEDS ORDERED: ceFAZolin SODIUM 1 GM VIAL ONE (11:00)
[2016-04-01] MEDS ORDERED: PROPOFOL 20 ML ONE (11:11)
[2016-04-01] MEDS ORDERED: PT OWN MED DRAWER 7, Y5N ONE (12:05)
[2016-04-01] MEDS: DONEPEZIL HCL 10 MG TABLET (FP) PO SCH (12:10)
[2016-04-01] MEDS: HEPARIN NA (PORCINE) 5,000 UNITS/ML 1ML VIAL SQ SCH ×2 (12:10→21:41)
[2016-04-01] MEDS: METOPROLOL SUCCINATE 25 MG TAB.SR.24H (FP) PO SCH (12:11)
[2016-04-01] MEDS: PANTOPRAZOLE 40 MG TABLET (FP) PO SCH (12:11)
[2016-04-01] MEDS: ASCORBIC ACID 500 MG TABLET (FP) PO SCH (12:11)
[2016-04-01] MEDS: MEMANTINE HCL 10 MG TABLET (FP) PO SCH ×2 (12:11→21:41)
[2016-04-01] MEDS: CLOPIDOGREL BISULFATE 75 MG TABLET (FP) PO SCH ×2 (12:11→17:09)
[2016-04-01] MEDS: MULTIVITAMINS (DAILY MVI) TABLET (FP) PO SCH (12:11)
--- NOTE | 2016-04-01 13:08 | OP ---
Operative Note - Note: Operative Date: 04/01/16 Pre-Operative Diagnosis: left heel ulcer Operation: Aortogram, CO2 angiogram, SFA, popliteal artery angioplasty , sfa stent placement . Findings: SFA occlusion from the origin Post-Operative Diagnosis: Same as Pre-op Surgeon: Poncho Gallardo Anesthesia: Fractional Estimated Blood Loss (mls): 20 Operative Report Dictated: Yes
[2016-04-01] MEDS ORDERED: oxyCODONE HCL 5 MG TABLET PO PRN (13:11)
[2016-04-01] MEDS ORDERED: ACETAMINOPHEN 325 MG TABLET (FP) PO PRN (13:11)
[2016-04-01] MEDS ORDERED: D5-1/2NS+30 MEQ KCL - 1,000 ML IV SCH (13:11)
[2016-04-01] MEDS: LACTATED RINGERS SOLUTION 1,000 ML IV SCH (17:09)
[2016-04-01] MEDS: DOCUSATE SODIUM 100 MG CAPSULE (FP) PO SCH (21:41)
[2016-04-01] MEDS: ROSUVASTATIN CA 10 MG TABLET (FP) PO SCH (21:41)
--- NOTE | 2016-04-02 07:25 | PN ---
Progress Note (short form) - Note Progress Note: POD #1 s/p Aortogram, CO2 angiogram, SFA, popliteal artery angioplasty , sfa stent placement 2ndry to occlusion Per RN notes, no acute events since surgery. Resting comfortably without complaint. Last Vital Signs Temp Pulse Resp BP Pulse Ox 98.7 F 68 20 118/48 98 04/02/16 04:59 04/02/16 04:59 04/02/16 04:59 04/02/16 04:59 04/01/16 14:57 General: nad Right groin: No hematoma. LLE:warm all the way to her toes. Cap refill < 3 seconds. Left heel ulcer, eschar and tendon exposed to dorsal aspect of foot. 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 Cont care per primary medical team Code(s): L97.404 - NON-PRS CHRONIC ULCER OF UNSP HEEL AND MIDFOOT W [place]CROS BONE
[2016-04-02 08:25] LABS: BASOPHIL 0.2 % (0-2.0); EOSINOPHIL 1.2 % (0-4.5); MCH 30.3 pg (25.7-33.7); MCHC 33.1 g/dl (32.0-36.0); MEAN CELL VOLUME 91.6 fl (80-96); MEAN PLT VOLUME 8.3 fl (7.5-11.1); NEUTROPHILS 70.5 % (42.8-82.8); PLATELET COUNT 141 K/MM3 (134-434); RDW 16.3 % (11.6-15.6)
--- NOTE | 2016-04-02 08:30 | PN ---
Progress Note, Physician - Current Medication List Current Medications: Active Medications Acetaminophen (Tylenol -) 650 mg PO Q6H PRN PRN Reason: FEVER OR PAIN Last Admin: 04/02/16 02:04 Dose: 650 mg Ascorbic Acid (Vitamin C -) 500 mg PO DAILY [facility] Clopidogrel Bisulfate (Plavix -) 75 mg PO DAILY [facility] Last Admin: 04/01/16 17:09 Dose: 75 mg Collagenase (Santyl -) 1 applic TP DAILY [facility] Docusate Sodium (Colace -) 200 mg PO HS [facility] Last Admin: 04/01/16 21:41 Dose: 200 mg Donepezil HCl (Aricept -) 10 mg PO DAILY [facility] Fentanyl (Sublimaze Injection -) 25 mcg IVPUSH [id number] PRN PRN Reason: PAIN Stop: 04/04/16 13:59 Heparin Sodium (Porcine) (Heparin -) 5,000 unit SQ BID [facility] Last Admin: 04/01/16 21:41 Dose: 5,000 unit Potassium Chloride/Dextrose/Sod Cl (D5-1/2ns+30 Meq Kcl -) 1,000 mls @ 75 mls/ hr IV ASDIR [facility] Last Admin: 04/01/16 17:09 Dose: 75 mls/hr Lactated Ringer's (Lactated Ringers Solution) 1,000 mls @ 75 mls/hr IV ASDIR [facility] Last Admin: 04/01/16 17:09 Dose: Not Given Memantine (Namenda -) 10 mg PO BID [facility] Last Admin: 04/01/16 21:41 Dose: 10 mg Metoprolol Succinate (Toprol Xl -) 25 mg PO DAILY [facility] Multivitamins/Minerals/Vitamin C (Tab-A-Vit -) 1 tab PO DAILY [facility] Nystatin (Nystop Powder -) 1 applic TP DAILY [facility] Oxycodone HCl (Roxicodone -) 5 mg PO Q6H PRN PRN Reason: PAIN Pantoprazole Sodium (Protonix -) 40 mg PO DAILY [facility] Rosuvastatin Calcium (Crestor -) 10 mg PO HS [facility] Last Admin: 04/01/16 21:41 Dose: 10 mg - Objective Vital Signs: Vital Signs Temperature 98.7 F 04/02/16 04:59 Pulse Rate 68 04/02/16 04:59 Respiratory Rate 20 04/02/16 04:59 Blood Pressure 118/48 04/02/16 04:59 O2 Sat by Pulse Oximetry (%) 98 04/01/16 14:57 Labs: CBC, BMP 04/02/16 08:00 INR, PTT INR 1.22 (0.82-1.09) H 03/28/16 20:05 Assessment/Plan - Problems (1) Foot ulcer Assessment/Plan: being followed by dr aranda s/p angiogram --s/p stent Code(s): L97.509 - NON-PRESSURE CHRONIC ULCER OTH PRT UNSP FOOT W UNSP SEVERITY Qualifiers: Laterality: left (2) Dehydration Assessment/Plan: improving with ivf--dc now and monitor son says no feeding tube Code(s): E86.0 - DEHYDRATION (3) Dementia Assessment/Plan: nameda and aricept Code(s): F03.90 - UNSPECIFIED DEMENTIA WITHOUT BEHAVIORAL DISTURBANCE (4) Hypernatremia Assessment/Plan: improving slolwly with IVF- 147 Code(s): E87.0 - HYPEROSMOLALITY AND HYPERNATREMIA (5) CAD (coronary artery disease) Assessment/Plan: metorprolol and plavix will monitor h/h if less 8 then chloe tranfuse Code(s): I25.10 - ATHSCL HEART DISEASE OF [place] CORONARY ARTERY W/O ANG PCTRS (6) Anemia Assessment/Plan: transfuse Assessment/Plan dr ge d/w son again about comfort care he still not ready to sign papers for that says he canot make that decision explained to him that iv fluids is temporary measure and i have explained this to son on multiple occasion before but he says he cannot sign comfort and [facility] paper and says no feeding tube and knows his mom has minimal po intake and dehyration ad hyernatremia is a reccurring problem.
[2016-04-02 08:52] LABS: ALBUMIN 1.5 g/dl (3.4-5.0); BILIRUBIN,TOTAL 0.4 mg/dL (0.2-1.0); CALCIUM 7.6 mg/dL (8.5-10.1); CREATININE 1.3 mg/dL (0.55-1.02)
[2016-04-02] MEDS ORDERED: CLOPIDOGREL BISULFATE 75 MG TABLET (FP) PO SCH (10:00)
[2016-04-02] MEDS: MEMANTINE HCL 10 MG TABLET (FP) PO SCH ×2 (10:42→22:55)
[2016-04-02] MEDS: DONEPEZIL HCL 10 MG TABLET (FP) PO SCH (10:42)
[2016-04-02] MEDS: METOPROLOL SUCCINATE 25 MG TAB.SR.24H (FP) PO SCH (10:42)
[2016-04-02] MEDS: HEPARIN NA (PORCINE) 5,000 UNITS/ML 1ML VIAL SQ SCH ×2 (10:42→22:55)
[2016-04-02] MEDS: CLOPIDOGREL BISULFATE 75 MG TABLET (FP) PO SCH (10:43)
[2016-04-02] MEDS: ASCORBIC ACID 500 MG TABLET (FP) PO SCH (10:43)
[2016-04-02] MEDS: MULTIVITAMINS (DAILY MVI) TABLET (FP) PO SCH (10:43)
[2016-04-02] MEDS: PANTOPRAZOLE 40 MG TABLET (FP) PO SCH (10:43)
[2016-04-02] MEDS: NYSTATIN POWDER 100,000 UNITS/GM - 15 GM TOPICAL POWDER TP SCH (13:21)
--- NOTE | 2016-04-02 13:29 | PN ---
Progress Note (short form) - Note Progress Note: Renal Follow up for TROY and Hypernatermia Pt seen and examined at the bedside s/p CO2 angiogram yesterday sleeping but not arouseable no change from baseline Vital Signs Temperature 98.5 F 04/02/16 10:00 Pulse Rate 74 04/02/16 10:25 Respiratory Rate 20 04/02/16 10:00 Blood Pressure 127/58 04/02/16 10:00 O2 Sat by Pulse Oximetry (%) 97 04/02/16 10:25 Intake & Output 03/30/16 03/31/16 04/01/16 04/02/16 23:59 23:59 23:59 23:59 Intake Total 921 213 5375 400 Output Total 20 Balance 592 355 2229 400 Gen: Lethargic CVS: RRR Lungs: CTA Abd Soft NT/ND Ext: no edema in LE CBC, BMP 04/02/16 08:00 04/02/16 08:00 Current Medications Acetaminophen (Tylenol -) 650 mg PO Q6H PRN PRN Reason: FEVER OR PAIN Last Admin: 04/02/16 02:04 Dose: 650 mg Ascorbic Acid (Vitamin C -) 500 mg PO DAILY [facility] Last Admin: 04/02/16 10:43 Dose: 500 mg Clopidogrel Bisulfate (Plavix -) 75 mg PO DAILY [facility] Last Admin: 04/02/16 10:43 Dose: 75 mg Collagenase (Santyl -) 1 applic TP DAILY [facility] Docusate Sodium (Colace -) 200 mg PO HS [facility] Last Admin: 04/01/16 21:41 Dose: 200 mg Donepezil HCl (Aricept -) 10 mg PO DAILY [facility] Last Admin: 04/02/16 10:42 Dose: 10 mg Fentanyl (Sublimaze Injection -) 25 mcg IVPUSH [id number] PRN PRN Reason: PAIN Stop: 04/04/16 13:59 Heparin Sodium (Porcine) (Heparin -) 5,000 unit SQ BID [facility] Last Admin: 04/02/16 10:42 Dose: 5,000 unit Potassium Chloride/Dextrose/Sod Cl (D5-1/2ns+30 Meq Kcl -) 1,000 mls @ 75 mls/ hr IV ASDIR [facility] Last Admin: 04/01/16 17:09 Dose: 75 mls/hr Lactated Ringer's (Lactated Ringers Solution) 1,000 mls @ 75 mls/hr IV ASDIR [facility] Last Admin: 04/01/16 17:09 Dose: Not Given Memantine (Namenda -) 10 mg PO BID [facility] Last Admin: 04/02/16 10:42 Dose: 10 mg Metoprolol Succinate (Toprol Xl -) 25 mg PO DAILY [facility] Last Admin: 04/02/16 10:42 Dose: 25 mg Multivitamins/Minerals/Vitamin C (Tab-A-Vit -) 1 tab PO DAILY [facility] Last Admin: 04/02/16 10:43 Dose: 1 tab Nystatin (Nystop Powder -) 1 applic TP DAILY [facility] Last Admin: 04/02/16 13:21 Dose: 1 applic Oxycodone HCl (Roxicodone -) 5 mg PO Q6H PRN PRN Reason: PAIN Pantoprazole Sodium (Protonix -) 40 mg PO DAILY [facility] Last Admin: 04/02/16 10:43 Dose: 40 mg Rosuvastatin Calcium (Crestor -) 10 mg PO HS [facility] Last Admin: 04/01/16 21:41 Dose: 10 mg A/P 86 year old woman with PMhx of CKD, CVA, COPD, CHF, Dementia, DM,. GERD, Hypertension presented with hypernatremia and abnormal renal function. #Hypernatremia in setting of CKD Serum na stable continue maintenance fluids #PVD s/p CO2 angiogram with stenting vascular follow up poor prognosis Thank you Miguel High DO
--- NOTE | 2016-04-02 14:01 | PN ---
Progress Note (short form) - Note Progress Note: Anesthesia postop note 86 y/o F with multiple medical problems, s/p TIVA for lle angiogram, angioplasty , stent POD#1, vss, nurse reports baseline mental status. No anesthesia complications.
[2016-04-02] MEDS: COLLAGENASE CLOSTRIDIUM HIST. 30 GRAMS TUBE TP SCH (18:54)
[2016-04-02] MEDS: LACTATED RINGERS SOLUTION 1,000 ML IV SCH (18:54)
[2016-04-02] MEDS: D5-1/2NS+30 MEQ KCL - 1,000 ML IV SCH (22:46)
[2016-04-02] MEDS: DOCUSATE SODIUM 100 MG CAPSULE (FP) PO SCH (22:47)
[2016-04-02] MEDS: ROSUVASTATIN CA 10 MG TABLET (FP) PO SCH (22:55)
[2016-04-03 07:17] LABS: BASOPHIL 0.5 % (0-2.0); EOSINOPHIL 1.4 % (0-4.5); MCH 29.3 pg (25.7-33.7); MCHC 32.7 g/dl (32.0-36.0); MEAN CELL VOLUME 89.5 fl (80-96); MEAN PLT VOLUME 9.3 fl (7.5-11.1); NEUTROPHILS 69.2 % (42.8-82.8); PLATELET COUNT 170 K/MM3 (134-434); RDW 17.5 % (11.6-15.6); WHITE BLOOD COUNT 7.1 K/mm3 (4.0-10.0)
[2016-04-03] MEDS ORDERED: FUROSEMIDE 40 MG/4 ML INJECTABLE VIAL IVPB ONE (08:33)
--- NOTE | 2016-04-03 08:34 | PN ---
Progress Note, Physician - Current Medication List Current Medications: Active Medications Acetaminophen (Tylenol -) 650 mg PO Q6H PRN PRN Reason: FEVER OR PAIN Last Admin: 04/02/16 02:04 Dose: 650 mg Ascorbic Acid (Vitamin C -) 500 mg PO DAILY [facility] Last Admin: 04/02/16 10:43 Dose: 500 mg Clopidogrel Bisulfate (Plavix -) 75 mg PO DAILY [facility] Last Admin: 04/02/16 10:43 Dose: 75 mg Collagenase (Santyl -) 1 applic TP DAILY [facility] Last Admin: 04/02/16 18:54 Dose: 1 applic Docusate Sodium (Colace -) 200 mg PO HS [facility] Last Admin: 04/02/16 22:47 Dose: Not Given Donepezil HCl (Aricept -) 10 mg PO DAILY [facility] Last Admin: 04/02/16 10:42 Dose: 10 mg Fentanyl (Sublimaze Injection -) 25 mcg IVPUSH [id number] PRN PRN Reason: PAIN Stop: 04/04/16 13:59 Heparin Sodium (Porcine) (Heparin -) 5,000 unit SQ BID [facility] Last Admin: 04/02/16 22:55 Dose: 5,000 unit Lactated Ringer's (Lactated Ringers Solution) 1,000 mls @ 75 mls/hr IV ASDIR [facility] Last Admin: 04/02/16 18:54 Dose: Not Given Potassium Chloride/Dextrose/Sod Cl (D5-1/2ns+30 Meq Kcl -) 1,000 mls @ 42 mls/ hr IV ASDIR [facility] Last Admin: 04/02/16 22:46 Dose: Not Given Memantine (Namenda -) 10 mg PO BID [facility] Last Admin: 04/02/16 22:55 Dose: Not Given Metoprolol Succinate (Toprol Xl -) 25 mg PO DAILY [facility] Last Admin: 04/02/16 10:42 Dose: 25 mg Multivitamins/Minerals/Vitamin C (Tab-A-Vit -) 1 tab PO DAILY [facility] Last Admin: 04/02/16 10:43 Dose: 1 tab Nystatin (Nystop Powder -) 1 applic TP DAILY [facility] Last Admin: 04/02/16 13:21 Dose: 1 applic Oxycodone HCl (Roxicodone -) 5 mg PO Q6H PRN PRN Reason: PAIN Pantoprazole Sodium (Protonix -) 40 mg PO DAILY [facility] Last Admin: 04/02/16 10:43 Dose: 40 mg Rosuvastatin Calcium (Crestor -) 10 mg PO HS [facility] Last Admin: 04/02/16 22:55 Dose: Not Given - Objective Vital Signs: Vital Signs Temperature 97.8 F 04/03/16 05:25 Pulse Rate 64 04/03/16 05:25 Respiratory Rate 18 04/03/16 05:25 Blood Pressure 146/66 04/03/16 05:25 O2 Sat by Pulse Oximetry (%) 97 04/02/16 21:00 Cardiovascular: Yes: Regular Rate and Rhythm Respiratory: Yes: Regular, CTA Bilaterally Labs: CBC, BMP 04/03/16 06:00 04/02/16 08:00 INR, PTT INR 1.22 (0.82-1.09) H 03/28/16 20:05 Assessment/Plan - Problems (1) Foot ulcer Assessment/Plan: being followed by dr aranda s/p angiogram --s/p stent Code(s): L97.509 - NON-PRESSURE CHRONIC ULCER OTH PRT UNSP FOOT W UNSP SEVERITY Qualifiers: Laterality: left (2) Dehydration Assessment/Plan: improving with ivf--dc now and monitor son says no feeding tube Code(s): E86.0 - DEHYDRATION (3) Dementia Assessment/Plan: nameda and aricept Code(s): F03.90 - UNSPECIFIED DEMENTIA WITHOUT BEHAVIORAL DISTURBANCE (4) Hypernatremia Assessment/Plan: improving slolwly with IVF- 147 Code(s): E87.0 - HYPEROSMOLALITY AND HYPERNATREMIA (5) CAD (coronary artery disease) Assessment/Plan: metorprolol and plavix will monitor h/h if less 8 then chloe tranfuse Code(s): I25.10 - ATHSCL HEART DISEASE OF [place] CORONARY ARTERY W/O ANG PCTRS (6) Anemia Assessment/Plan: transfuse Assessment/Plan dr ge d/w son again about comfort care he still not ready to sign papers for that says he canot make that decision explained to him that iv fluids is temporary measure and i have explained this to son on multiple occasion before but he says he cannot sign comfort and [facility] paper and says no feeding tube and knows his mom has minimal po intake and dehyration ad hyernatremia is a reccurring problem.
--- NOTE | 2016-04-03 10:27 | PN ---
Progress Note (short form) - Note Progress Note: NAD on RA. POD #1 : Aortogram, CO2 angiogram, SFA, popliteal artery angioplasty , SFA stent placement . No acute events overnight. Intake & Output 03/31/16 04/01/16 04/02/16 04/03/16 23:59 23:59 23:59 23:59 Intake Total 690 1795 750 Output Total 20 Balance 690 1775 750 Last Vital Signs Temp Pulse Resp BP Pulse Ox 97.8 F 64 18 146/66 97 04/03/16 05:25 04/03/16 05:25 04/03/16 05:25 04/03/16 05:25 04/02/16 21:00 Active Medications Acetaminophen (Tylenol -) 650 mg PO Q6H PRN PRN Reason: FEVER OR PAIN Last Admin: 04/02/16 02:04 Dose: 650 mg Ascorbic Acid (Vitamin C -) 500 mg PO DAILY [facility] Last Admin: 04/02/16 10:43 Dose: 500 mg Clopidogrel Bisulfate (Plavix -) 75 mg PO DAILY [facility] Last Admin: 04/02/16 10:43 Dose: 75 mg Collagenase (Santyl -) 1 applic TP DAILY [facility] Last Admin: 04/02/16 18:54 Dose: 1 applic Docusate Sodium (Colace -) 200 mg PO HS [facility] Last Admin: 04/02/16 22:47 Dose: Not Given Donepezil HCl (Aricept -) 10 mg PO DAILY [facility] Last Admin: 04/02/16 10:42 Dose: 10 mg Fentanyl (Sublimaze Injection -) 25 mcg IVPUSH [id number] PRN PRN Reason: PAIN Stop: 04/04/16 13:59 Heparin Sodium (Porcine) (Heparin -) 5,000 unit SQ BID [facility] Last Admin: 04/02/16 22:55 Dose: 5,000 unit Lactated Ringer's (Lactated Ringers Solution) 1,000 mls @ 75 mls/hr IV ASDIR [facility] Last Admin: 04/02/16 18:54 Dose: Not Given Potassium Chloride/Dextrose/Sod Cl (D5-1/2ns+30 Meq Kcl -) 1,000 mls @ 42 mls/ hr IV ASDIR [facility] Last Admin: 04/02/16 22:46 Dose: Not Given Memantine (Namenda -) 10 mg PO BID [facility] Last Admin: 04/02/16 22:55 Dose: Not Given Metoprolol Succinate (Toprol Xl -) 25 mg PO DAILY [facility] Last Admin: 04/02/16 10:42 Dose: 25 mg Multivitamins/Minerals/Vitamin C (Tab-A-Vit -) 1 tab PO DAILY [facility] Last Admin: 04/02/16 10:43 Dose: 1 tab Nystatin (Nystop Powder -) 1 applic TP DAILY [facility] Last Admin: 04/02/16 13:21 Dose: 1 applic Oxycodone HCl (Roxicodone -) 5 mg PO Q6H PRN PRN Reason: PAIN Pantoprazole Sodium (Protonix -) 40 mg PO DAILY [facility] Last Admin: 04/02/16 10:43 Dose: 40 mg Rosuvastatin Calcium (Crestor -) 10 mg PO HS [facility] Last Admin: 04/02/16 22:55 Dose: Not Given General: NAD Cardiovascular: Yes: S1, S2 Respiratory: Yes: Few basilar rhonchi Gastrointestinal: Yes: Normal Bowel Sounds, Soft EXT: (+) ulcers Labs: Laboratory Results - last 24 hr 04/02/16 04/02/16 04/02/16 08:50 11:48 22:51 WBC RBC Hgb Hct MCV MCHC RDW Plt Count MPV Neutrophils % Lymphocytes % Monocytes % Eosinophils % Basophils % POC Glucometer 97 95 Blood Type A POSITIVE Antibody Screen Negative Crossmatch See Detail 04/03/16 04/03/16 06:00 06:09 WBC 7.1 RBC 3.38 L D Hgb 9.9 L D Hct 30.3 L D MCV 89.5 MCHC 32.7 RDW 17.5 H Plt Count 170 D MPV 9.3 D Neutrophils % 69.2 Lymphocytes % 15.2 Monocytes % 13.7 H Eosinophils % 1.4 Basophils % 0.5 POC Glucometer 76 Blood Type Antibody Screen Crossmatch Assessment/Plan (1) Dehydration Code(s): E86.0 - DEHYDRATION (2) Dementia Assessment/Plan: Code(s): F03.90 - UNSPECIFIED DEMENTIA WITHOUT BEHAVIORAL DISTURBANCE (3) Foot ulcer Assessment/Plan: Code(s): L97.509 - NON-PRESSURE CHRONIC ULCER OTH PRT UNSP FOOT W UNSP SEVERITY Qualifiers: Laterality: left (4) CAD (coronary artery disease) Assessment/Plan: Code(s): I25.10 - ATHSCL HEART DISEASE OF COUNCIL CORONARY ARTERY W/O ANG PCTRS Assessment/Plan O2 as needed Aspiration precautions Wound care per surgery IVF SQ Heparin Dr Mackay
[2016-04-03] MEDS ORDERED: FUROSEMIDE 40 MG/4 ML INJECTABLE VIAL ONE (10:54)
[2016-04-03] MEDS: MULTIVITAMINS (DAILY MVI) TABLET (FP) PO SCH (11:55)
[2016-04-03] MEDS: COLLAGENASE CLOSTRIDIUM HIST. 30 GRAMS TUBE TP SCH (11:56)
[2016-04-03] MEDS: HEPARIN NA (PORCINE) 5,000 UNITS/ML 1ML VIAL SQ SCH ×2 (11:56→22:31)
[2016-04-03] MEDS: MEMANTINE HCL 10 MG TABLET (FP) PO SCH ×2 (11:56→22:42)
[2016-04-03] MEDS: DONEPEZIL HCL 10 MG TABLET (FP) PO SCH (11:56)
[2016-04-03] MEDS: PANTOPRAZOLE 40 MG TABLET (FP) PO SCH (11:56)
[2016-04-03] MEDS: METOPROLOL SUCCINATE 25 MG TAB.SR.24H (FP) PO SCH (11:56)
[2016-04-03] MEDS: CLOPIDOGREL BISULFATE 75 MG TABLET (FP) PO SCH (11:56)
[2016-04-03] MEDS: NYSTATIN POWDER 100,000 UNITS/GM - 15 GM TOPICAL POWDER TP SCH (11:56)
[2016-04-03] MEDS: ASCORBIC ACID 500 MG TABLET (FP) PO SCH (11:57)
--- NOTE | 2016-04-03 14:38 | PN ---
Progress Note (short form) - Note Progress Note: Renal Follow up for TROY and Hypernatermia Pt seen and examined at the bedside sleeping, not arouseble (baseline) no overnight events no fevers, bp stable Vital Signs Temperature 97.9 F 04/03/16 09:00 Pulse Rate 58 L 04/03/16 10:30 Respiratory Rate 18 04/03/16 09:00 Blood Pressure 134/57 04/03/16 09:00 O2 Sat by Pulse Oximetry (%) 98 04/03/16 10:30 Intake & Output 03/31/16 04/01/16 04/02/16 04/03/16 23:59 23:59 23:59 23:59 Intake Total 690 1795 750 Output Total 20 Balance 690 1775 750 Gen: Lethargic CVS: RRR Lungs: CTA Abd Soft NT/ND Ext: no edema in LE CBC, BMP 04/03/16 06:00 04/02/16 08:00 no new labs today Current Medications Acetaminophen (Tylenol -) 650 mg PO Q6H PRN PRN Reason: FEVER OR PAIN Last Admin: 04/02/16 02:04 Dose: 650 mg Ascorbic Acid (Vitamin C -) 500 mg PO DAILY [facility] Last Admin: 04/03/16 11:57 Dose: 500 mg Clopidogrel Bisulfate (Plavix -) 75 mg PO DAILY [facility] Last Admin: 04/03/16 11:56 Dose: 75 mg Collagenase (Santyl -) 1 applic TP DAILY [facility] Last Admin: 04/03/16 11:56 Dose: 1 applic Docusate Sodium (Colace -) 200 mg PO HS [facility] Last Admin: 04/02/16 22:47 Dose: Not Given Donepezil HCl (Aricept -) 10 mg PO DAILY [facility] Last Admin: 04/03/16 11:56 Dose: 10 mg Fentanyl (Sublimaze Injection -) 25 mcg IVPUSH [id number] PRN PRN Reason: PAIN Stop: 04/04/16 13:59 Heparin Sodium (Porcine) (Heparin -) 5,000 unit SQ BID [facility] Last Admin: 04/03/16 11:56 Dose: 5,000 unit Lactated Ringer's (Lactated Ringers Solution) 1,000 mls @ 75 mls/hr IV ASDIR [facility] Last Admin: 04/02/16 18:54 Dose: Not Given Potassium Chloride/Dextrose/Sod Cl (D5-1/2ns+30 Meq Kcl -) 1,000 mls @ 42 mls/ hr IV ASDIR [facility] Last Admin: 04/02/16 22:46 Dose: Not Given Memantine (Namenda -) 10 mg PO BID [facility] Last Admin: 04/03/16 11:56 Dose: 10 mg Metoprolol Succinate (Toprol Xl -) 25 mg PO DAILY [facility] Last Admin: 04/03/16 11:56 Dose: 25 mg Multivitamins/Minerals/Vitamin C (Tab-A-Vit -) 1 tab PO DAILY [facility] Last Admin: 04/03/16 11:55 Dose: 1 tab Nystatin (Nystop Powder -) 1 applic TP DAILY [facility] Last Admin: 04/03/16 11:56 Dose: 1 applic Oxycodone HCl (Roxicodone -) 5 mg PO Q6H PRN PRN Reason: PAIN Pantoprazole Sodium (Protonix -) 40 mg PO DAILY [facility] Last Admin: 04/03/16 11:56 Dose: 40 mg Rosuvastatin Calcium (Crestor -) 10 mg PO HS [facility] Last Admin: 04/02/16 22:55 Dose: Not Given A/P 86 year old woman with PMhx of CKD, CVA, COPD, CHF, Dementia, DM,. GERD, Hypertension presented with hypernatremia and abnormal renal function. #Hypernatremia in setting of CKD no new labs today check bmp in am continue maintenance fluids for now #PVD s/p CO2 angiogram with stenting vascular follow up poor prognosis Thank you Miguel High DO
[2016-04-03] MEDS: D5-1/2NS+30 MEQ KCL - 1,000 ML IV SCH (18:40)
[2016-04-03] MEDS: LACTATED RINGERS SOLUTION 1,000 ML IV SCH (18:41)
[2016-04-03] MEDS: DOCUSATE SODIUM 100 MG CAPSULE (FP) PO SCH (22:31)
[2016-04-03] MEDS: ROSUVASTATIN CA 10 MG TABLET (FP) PO SCH (22:42)
[2016-04-04 08:17] LABS: CALCIUM 7.9 mg/dL (8.5-10.1); CREATININE 1.3 mg/dL (0.55-1.02); MAGNESIUM 1.6 mg/dL (1.8-2.4); PHOSPHOROUS 2.7 mg/dL (2.5-4.9)
[2016-04-04] MEDS: COLLAGENASE CLOSTRIDIUM HIST. 30 GRAMS TUBE TP SCH ×2 (08:17→15:30)
[2016-04-04] MEDS: CLOPIDOGREL BISULFATE 75 MG TABLET (FP) PO SCH (12:01)
[2016-04-04] MEDS: PANTOPRAZOLE 40 MG TABLET (FP) PO SCH (12:01)
[2016-04-04] MEDS: ASCORBIC ACID 500 MG TABLET (FP) PO SCH (12:01)
[2016-04-04] MEDS: METOPROLOL SUCCINATE 25 MG TAB.SR.24H (FP) PO SCH (12:01)
[2016-04-04] MEDS: MULTIVITAMINS (DAILY MVI) TABLET (FP) PO SCH (12:01)
[2016-04-04] MEDS: DONEPEZIL HCL 10 MG TABLET (FP) PO SCH (12:01)
[2016-04-04] MEDS: MEMANTINE HCL 10 MG TABLET (FP) PO SCH (12:02)
[2016-04-04] MEDS: HEPARIN NA (PORCINE) 5,000 UNITS/ML 1ML VIAL SQ SCH (12:02)
--- NOTE | 2016-04-04 12:26 | PN ---
Progress Note (short form) - Note Progress Note: Renal Follow up for TROY and Hypernatermia Pt seen and examined at the bedside no overnight events off IVF ate about 25% breakfast as per aid Vital Signs Temperature 98.3 F 04/04/16 05:51 Pulse Rate 66 04/04/16 05:51 Respiratory Rate 18 04/04/16 05:51 Blood Pressure 142/50 04/04/16 05:51 O2 Sat by Pulse Oximetry (%) 96 04/03/16 21:00 Intake & Output 04/01/16 04/02/16 04/03/16 04/04/16 23:59 23:59 23:59 23:59 Intake Total 1795 750 Output Total 20 Balance 1775 750 Gen: Lethargic CVS: RRR Lungs: CTA Abd Soft NT/ND Ext: no edema in LE CBC, BMP 04/03/16 06:00 04/04/16 06:25 Current Medications Acetaminophen (Tylenol -) 650 mg PO Q6H PRN PRN Reason: FEVER OR PAIN Last Admin: 04/02/16 02:04 Dose: 650 mg Ascorbic Acid (Vitamin C -) 500 mg PO DAILY [facility] Last Admin: 04/04/16 12:01 Dose: 500 mg Clopidogrel Bisulfate (Plavix -) 75 mg PO DAILY [facility] Last Admin: 04/04/16 12:01 Dose: 75 mg Collagenase (Santyl -) 1 applic TP DAILY [facility] Last Admin: 04/03/16 11:56 Dose: 1 applic Docusate Sodium (Colace -) 200 mg PO HS [facility] Last Admin: 04/03/16 22:31 Dose: Not Given Donepezil HCl (Aricept -) 10 mg PO DAILY [facility] Last Admin: 04/04/16 12:01 Dose: 10 mg Heparin Sodium (Porcine) (Heparin -) 5,000 unit SQ BID [facility] Last Admin: 04/04/16 12:02 Dose: 5,000 unit Memantine (Namenda -) 10 mg PO BID [facility] Last Admin: 04/04/16 12:02 Dose: 10 mg Metoprolol Succinate (Toprol Xl -) 25 mg PO DAILY [facility] Last Admin: 04/04/16 12:01 Dose: 25 mg Multivitamins/Minerals/Vitamin C (Tab-A-Vit -) 1 tab PO DAILY [facility] Last Admin: 04/04/16 12:01 Dose: 1 tab Nystatin (Nystop Powder -) 1 applic TP DAILY [facility] Last Admin: 04/03/16 11:56 Dose: 1 applic Oxycodone HCl (Roxicodone -) 5 mg PO Q6H PRN PRN Reason: PAIN Pantoprazole Sodium (Protonix -) 40 mg PO DAILY [facility] Last Admin: 04/04/16 12:01 Dose: 40 mg Rosuvastatin Calcium (Crestor -) 10 mg PO HS [facility] Last Admin: 04/03/16 22:42 Dose: Not Given A/P 86 year old woman with PMhx of CKD, CVA, COPD, CHF, Dementia, DM,. GERD, Hypertension presented with hypernatremia and abnormal renal function. #Hypernatremia in setting of CKD serum na up to 149 today continue oral intake as tolerated unfortunately pt likely to get dehydrated again off IVF because she cannot maintain adequate oral intake Thank you Miguel High DO
--- NOTE | 2016-04-04 14:31 | DS ---
Physical Examination Vital Signs: Vital Signs Temperature 98.1 F 04/04/16 10:00 Pulse Rate 66 04/04/16 10:00 Respiratory Rate 18 04/04/16 10:00 Blood Pressure 151/84 04/04/16 10:00 O2 Sat by Pulse Oximetry (%) 100 04/04/16 09:00 nonverbal in bed Constitutional: Yes: Calm Cardiovascular: Yes: Regular Rate and Rhythm, S1, S2 Respiratory: Yes: Diminished Gastrointestinal: Yes: Normal Bowel Sounds, Soft Edema: No Neurological: Yes: Other (eyes closed not talkng) Labs: CBC, BMP 04/03/16 06:00 04/04/16 06:25 Discharge Summary Reason For Visit: AHYPERNATREMIA/DEHYDRATION/HYPOKALEMIA Current Active Problems CAD (coronary artery disease) (Acute) CHF (congestive heart failure) (Acute) COPD (chronic obstructive pulmonary disease) (Acute) Dehydration (Acute) Dementia (Acute) Foot ulcer (Acute) HTN (hypertension) (Acute) Hypernatremia (Acute) Hypokalemia (Acute) Hospital Course: 03/21/16 22:18 The patient is an 86-year-old female with a significant past medical history of CVA, COPD, CHF, Dementia (Alzheimers), diabetes, GERD, renal failure, hypertension and hypercholesterolemia who presents to the emergency department with hypernatremia and abnormal blood work sent in by [facility]. The patients history is limited due to patients baseline. Allergies: NKDA Social History: Former smoker (quit >9 years ago). No ETOH or recreational drug use. PCP: Dr. Carrie Mccarthy patient got iv fluids for hypernatremia then vascualr surgery did Aortogram, CO2 angiogram, SFA atherectomy, SFA stent placement, SFA angioplasty patient sons doesn want G tube, dnr will transfer back to [place] Condition: Poor - Instructions Referrals: Carrie Mccarthy MD [Primary Care Provider] - Disposition: ASSISTED FACILITY - Home Medications Comprehensive Discharge Medication List: Ambulatory Orders Albuterol Sulfate Inhaler - [Ventolin HFA Inhaler -] 1 inh PO Q6H 11/16/15 Clopidogrel Bisulfate [Plavix -] 75 mg PO DAILY 11/16/15 Memantine HCl [Namenda -] 10 mg PO BID 11/16/15 Multivitamins [Multivit ([facility] Formulary)] 1 tab PO DAILY 11/16/15 Rosuvastatin Calcium [Crestor] 20 mg PO HS 11/16/15 Docusate Sodium [Colace -] 200 mg PO HS 12/18/15 Oxycodone HCl [Roxicodone -] 5 mg PO ASDIR 12/18/15 Ranitidine [Zantac -] 150 mg PO HS 12/18/15 Collagenase Clostridium Hist. [Santyl -] 1 applic TP DAILY tube 12/25/15 Pantoprazole Sodium [Protonix -] 40 mg PO DAILY tablet.ec 12/25/15 Aa/Eckley Iraj,Whey/Arg/C/Zn/Cu [Lps Critical Care Liquid] 30 ml PO TID 03/05/16 Ascorbate Calcium [Vitamin C] 500 mg PO DAILY 03/05/16 Ascorbate Calcium/Bioflavonoid [Ashley-C 1,000 mg Tablet] 1 each PO DAILY Donepezil HCl [Aricept -] 10 mg PO DAILY 03/05/16 Acetaminophen [Tylenol .Regular Strength -] 650 mg PO Q4H PRN #0 tablet
[2016-04-04] MEDS: NYSTATIN POWDER 100,000 UNITS/GM - 15 GM TOPICAL POWDER TP SCH (15:30)
[2016-04-04 17:08] VITALS: BP 129/49; PULSE 61; TEMP 97.1
--- NOTE | 2016-04-23 16:35 | OP ---
DATE OF OPERATION: 04/01/2016 PREOPERATIVE DIAGNOSIS: Left heel ulcer. 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 PROCEDURE: Aortogram, CO2 angiogram, superficial femoral artery atherectomy, superficial femoral artery stent placement with angioplasty. FINDINGS: SFA occlusion from the origin. SURGEON: Poncho Ramos DO ANESTHESIA: Fractional. BLOOD LOSS: 20 mL. SPECIMENS: Necrotic tissue sent down to Pathology. The patient is an 86-year-old female who has a chronic left heel ulcer. Preoperative ultrasounds showed that she has SFA occlusion and would need an angiogram in order to help her heal her left heel ulcer. The patient's son was consented for the procedure, understanding all risks, benefits, alternatives. The patient's son understands that because his mother has an elevated creatinine, we are not going to be using any contrast but we are going to be using CO2 so that her kidneys are not affected. Patient was brought in to the operating room, laid down on the operating table in supine manner and the area of the right groin is prepped and draped in sterile surgical manner. We then went ahead and injected 10 mL of lidocaine 1% over the right common femoral artery. We then took our micropuncture needle and punctured the right common femoral artery. Micropuncture wire was inserted and a traditional 5-Gabonese sheath was inserted. We then went ahead and placed a 0.035 floppy guidewire up into the aorta followed by an Omni Flush catheter. We then shot an aortogram via hand injection, showing that the aorta and the iliac arteries were without any disease. We then placed a 0.035 floppy guidewire up and over to the left common femoral artery and our Omni Flush catheter was placed. We then shot an angiogram of the left lower extremity, showing that the SFA was occluded from the origin and reconstituted at the distal SFA. There was also a small occlusion over the popliteal artery as well and the patient had 2 vessel runoff into the foot including the posterior tibial, which fed the heel. At this point we placed 0.035 stiff guidewire into the occluded SFA, a 6 x 45 crossover sheath was placed up and over. IV heparin 5000 units was administered to patient. We then followed our 0.035 stiff guidewire with an 035 Quick-Cross and we were able to navigate across our occlusion and placed a wire into the popliteal artery into true lumen. At this point we went ahead and used a 5 x 120 balloon and performed angioplasty of the entire SFA and performed angioplasty of the entire SFA. In the proximal SFA, where there was a lot of calcium, we went ahead and exchanged for a ViperWire and then we performed CSI orbital atherectomy in the proximal SFA. Once that was performed, we then shot a completion angiogram, showing that the SFA was now patent but had areas of dissection and we went ahead and used a 6 x 120 stent. Stent was deployed and balloon then placed using a 5 x 120 balloon and the SFA was now patent. We then went ahead and took a number 5 balloon, the same balloon, and performed angioplasty of the popliteal artery. Completion angiogram showed that the SFA was now patent with the stent in place, the popliteal artery was patent, and there was good brisk flow down to the left heel. At this point there was no more intervention that was needed. Everything throughout the procedure was done with CO2 angiography so that the patient does not receive any contrast. We then brought our sheath up and over and StarClose device was successfully deployed in the right common femoral artery. Pressure was held for 5 minutes. After there was no bleeding, the area was wet and dried and Dermabond was placed. Patient tolerated procedure, no complications. Patient transferred to PACU in stable condition. PONCHO RAMOS DO [id number]
== END 2016-04-04 17:30 | DRG 629 ==
LOC: JER 17:39 → JERBED 22:29 → J7W 03-22 02:13
PROVIDERS: ADMIT Family Medicine; ATTEND Family Medicine
PROC: 047L3DZ Dilation of Left Femoral Artery with Intraluminal Device, Percutaneous Approach (ICD-10-PCS; 2016-04-01)
PROC: B41D1ZZ Fluoroscopy of Aorta and Bilateral Lower Extremity Arteries using Low Osmolar Contrast (ICD-10-PCS; 2016-04-01)
PROC: 047N3ZZ Dilation of Left Popliteal Artery, Percutaneous Approach (ICD-10-PCS; principal; 2016-04-01 09:45)
DX: E87.0 Hyperosmolality and hypernatremia (principal); I50.22 Chronic systolic (congestive) heart failure; N17.9 Acute kidney failure, unspecified; J98.11 Atelectasis; L97.424 Non-pressure chronic ulcer of left heel and midfoot with necrosis of bone; I13.0 Hypertensive heart and chronic kidney disease with heart failure and stage 1 through stage 4 chronic kidney disease, or unspecified chronic kidney disease; J44.9 Chronic obstructive pulmonary disease, unspecified; G30.9 Alzheimer's disease, unspecified; F02.80 Dementia in other diseases classified elsewhere, unspecified severity, without behavioral disturbance, psychotic disturbance, mood disturbance, and anxiety; K21.9 Gastro-esophageal reflux disease without esophagitis; E78.00 Pure hypercholesterolemia, unspecified; Z86.73 Personal history of transient ischemic attack (TIA), and cerebral infarction without residual deficits; Z87.891 Personal history of nicotine dependence; E86.0 Dehydration; E87.6 Hypokalemia; N18.9 Chronic kidney disease, unspecified; I48.91 Unspecified atrial fibrillation; R62.7 Adult failure to thrive; I73.9 Peripheral vascular disease, unspecified; Z66 Do not resuscitate; I25.10 Atherosclerotic heart disease of native coronary artery without angina pectoris; D64.9 Anemia, unspecified; E11.22 Type 2 diabetes mellitus with diabetic chronic kidney disease
CPT/HCPCS: 36415; 36430; 71010-TC; 76001-TC; 80048; 80053; 82550; 82553; 83735; 83880; 84100; 84484; 85025; 85610; 86850; 86900; 86901; 86922; 93005; 93010; 94150; 94640; 94760; 99282-25; J1644; J3480; P9058